=== PATIENT | male | born 1940 | race Caucasian/White ===

== ENCOUNTER 2022-10-01 14:02 | Outpatient (RCR) | payer OTHER, SELFPAY | END 2023-01-29 23:59 | disposition home or self-care (01) | PROVIDERS: PCP Family Medicine; Visit Provider Family Medicine | DX: M25.562 Pain in left knee (principal); Z51.89 Encounter for other specified aftercare | CPT/HCPCS: 97110; 97140; 97162 ==

== ENCOUNTER 2023-11-03 13:36 | Outpatient (RCR) | payer OTHER, SELFPAY | END 2024-03-02 23:59 | disposition home or self-care (01) | PROVIDERS: PCP Family Medicine; Visit Provider Nurse Practitioner | DX: M25.552 Pain in left hip (principal); M79.652 Pain in left thigh; Z96.641 Presence of right artificial hip joint; M62.89 Other specified disorders of muscle; R29.898 Other symptoms and signs involving the musculoskeletal system; Z51.89 Encounter for other specified aftercare | CPT/HCPCS: 97110; 97161 ==

== ENCOUNTER 2024-11-24 15:42 | Emergency (ER) | payer MEDICARE, SELFPAY ==
--- OUTSIDE RECORDS SUMMARY | 2024-10-22 10:15 | XMS_ITS | Encounter Summary ---
Author Organization [facility] Address [address] [place] [address] Care Team Providers Care Cocoa Mill Operator Name Role Phone Elsewhere, Pcp Primary Care Provider Unavailabl e Reason for Visit * Reason Onset Date Comments Pre-visit Intake 10/22/2024 * Appointment Request (Routine) - Authorized Specialty Diagnoses / Procedures Referred By Valdemar t Referred To Contact Hematology Referral ID Status Reason Start Date Expiration Date V isits Requested Visits Authorized [id number] Authorized 08/02/2024 11/02/2025 1 1 Encounter Details Date Type Department Care Team (Latest Contact Info) Description 10/22/2024 10:15 AM CDT Clinical Communication Virtual Review in [address] [phone] Pre-visit Intake Social History Tobacco Use Types Packs/Day Years Used Date Smoking Tobacco: Former Cigarettes 1 25 0 11/12/1957 - 1976 Smokeless Tobacco: Never Alcohol Use Standard Drinks/Week Comments Not Currently 0 (1 standard drink = 0.6 oz pure alcohol) Stopped consuming alchohol in 1980 [facility] Utilities Answer Date Recorded In the past 12 months has [facility] electric, gas, oil, or water company threatened to shut off services in your home? No 10/22/2024 Humiliation, Afraid, Rape, and Kick questionnair e Answer Date Recorded Within the last year, have y ou been afraid of your partner or ex-partner? No 10/17/2022 Within the last year, have y ou been humiliated or emotionally abused in other ways by your partner or ex-partner? No Within the last year, have y ou been kicked, hit, slapped, or otherwise physically hurt by your partner or ex-partner? No 10/17/2022 Within the last year, have y ou been raped or forced to have any kind of sexual activity by your partner or ex-partner? No 10/17/2022 Hunger Vital Sign Answer Date Recorded Within the past 12 months, y ou worried that your food would run out before you got the money to buy more. Never true 10/23/19 25 Within the past 12 months, t he food you bought just didn't last and you didn't have money to get more. Never true 10/22/2024 PRAPARE - Transportation Answer Date Re corded In the past 12 months, has l ack of transportation kept you from medical appointments or from getting medications? No 10/10 In the past 12 months, has l ack of transportation kept you from meetings, work, or from getting things needed for daily living? No 10/22/2024 Housing Stability Answer Date Recorded What is your living situation today? I have a [facility] place to live 10/22/2024 Education Answer Date Recorded What is the highest level of school you have completed or the highest degree you have received? Associate degree: occupational, technical, or vocational program 10/10/2020 Sex and Gender Information Value Date Recorded Sex Assigned at Male 06/01/2018 2:30 PM RIVER BOAT CAPTAIN Legal Sex Male 10:26 AM RIVER BOAT CAPTAIN Gender Identity Male 06/01/2018 2:30 PM RIVER BOAT CAPTAIN Sexual Orientation Straight 06/01/2018 2: 30 PM RIVER BOAT CAPTAIN documented as of this encounter Plan of Treatment Upcoming Encounters Date Type Department Care Team (Late st Contact Info) Description 11/30/2024 9:30 AM CDT Appointment Department of Laboratory Medicine in [address] [phone] Helena Vidal APRN, C.N.P., M.S.N. [address] [place] [phone] 12/07/2024 9:30 AM CDT Appointment Department of Laboratory Medicine in [address] [place] [phone] Helena Vidal APRN, C.NGeovany., M.S.N. [address] [place] [phone] 12/13/2024 8:00 AM CDT Appointment Department of Laboratory Medicine in [address] [phone] Helena Vidal APRN, C.N.Lydia., M.S.N. [address] [place] [phone] 12/14/2024 10:00 AM CDT Office Visit Division of Hematology in [address] [phone] Helena Vidal APRN, C.NGeovany., M.S.N. [address] [place] [phone] 12/15/2024 7:30 AM CDT Infusion Department of Oncology in [place], [place] [address] [place] [phone] Helena Vidal APRN, C.N.P., M.S.N. [address] [place] [phone] 12/21/2024 9:30 AM CDT Appointment Department of Laboratory Medicine in [address] [phone] Helena Vidal APRN, C.N.P., M.S.N. [address] [place] [phone] 12/28/2024 9:30 AM CDT Appointment Department of Laboratory Medicine in [address] [place] [address] Helena Vidal APRN, C.NMike, M.S.N. [address] [place] [phone] 12/31/2024 11:15 AM CDT Appointment Department of Radiology, [facility], in [address] [phone] Helena Vidal APRN, C.N.P., M.S.N. [address] [place] [phone] 01/03/2025 8:00 AM CDT Appointment Department of Laboratory Medicine in [address] [phone] Helena Vidal APRN, C.NMike, M.S.N. [address] [place] [phone] 01/04/2025 10:00 AM CDT Office Visit Division of Hematology in [address] [phone] Helena Vidal APRN, C.NMike, M.S.N. [address] [place] [phone] 01/05/2025 8:00 AM CDT Infusion Department of Oncology in [address] [phone] Helena Vidal APRN, C.NKwasiP., M.S.N. [address] [place] [phone] 01/11/2025 9:30 AM CDT Appointment Department of Laboratory Medicine in [place] [address] [phone] Helena Vidal APRN, C.NMike, M.S.N. [address] [place] [phone] 01/18/2025 9:30 AM CDT Appointment Department of Laboratory Medicine in [address] [phone] Helena Vidal APRN, C.N.P., M.S.N. [address] [place] [phone] 02/01/2025 9:30 AM CDT Appointment Department of Laboratory Medicine in [address] [phone] Helena Vidal APRN, C.N.P., M.S.N. [address] [place] [phone] 02/08/2025 9:30 AM CDT Appointment Department of Laboratory Medicine in [address] [phone] Helena Vidal APRN, C.NMike, M.S.N. [address] [place] [phone] 02/22/2025 9:30 AM CDT Appointment Department of Laboratory Medicine in [address] [phone] Helena Vidal APRN, C.NMike, M.S.N. [address] [place] [phone] 03/01/2025 9:30 AM CDT Appointment Department of Laboratory Medicine in [address] [phone] Helena Vidal APRN, C.N.P., M.S.N. [address] [place] [phone] 03/15/2025 9:30 AM RIVER BOAT CAPTAIN Appointment Department of Laboratory Medicine in [address] [phone] Helena Vidal APRN, C.N.P., M.S.N. [address] [place] [phone] 03/22/2025 9:30 AM RIVER BOAT CAPTAIN Appointment Department of Laboratory Medicine in [address] [phone] Helena Vidal APRN, C.NGeovany., M.S.N. [address] [place] [phone] documented as of this encounter Visit Diagnoses Not on filedocumented in this encounter Care Teams Cocoa Mill Operator Relationship Specialty Start Date End Date Elsewhere, Pcp PCP - General Internal Medicine 10/22/24 documented as of this encounter
--- OUTSIDE RECORDS SUMMARY | 2024-10-26 07:52 | XMS_ITS | Encounter Summary ---
Author Organization [facility] Address [address] [place] [address] Care Team Providers Care Ross Carrier Driver Name Role Phone Elsewhere, Pcp Primary Care Provider Unavailabl e Encounter Details Date Type Department Care Team (Latest Contact Info) Description 10/26/2024 7:52 AM CDT - 10/26/2024 9:44 AM CDT Hospital Encounter Department of Laboratory Medicine and Pathology, [facility] in [place], [place] [address] [place] [address] Kourtney Elizalde M.D. 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 I have a [facility] place to live 10/22/2024 Education Answer Date Recorded What is the highest level of school you have completed or the highest degree you have received? 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 04/19/2024 traMADoL (ULTRAM) 50 mg tabletIndication s:Acute Pain Exception Take 1 tablet (50 mg total) by mouth every 6 (six) hours as needed for pain Indications: Acute Pain Exception. 20 tablet 12/19/2022 11/15/2024 documented as of this encounter Plan of Treatment Upcoming Encounters Date Type Department Care Team (Late st Contact Info) Description 11/30/2024 9:30 AM CDT Appointment Department of Laboratory Medicine in [address] [phone] Helena Vidal APRN, C.N.P., M.S.N. [address] [place] [phone] 12/07/2024 9:30 AM CDT Appointment Department of Laboratory Medicine in [address] [phone] Helena Vidal APRN, C.N.P., M.S.N. [address] [place] [phone] 12/13/2024 8:00 AM CDT Appointment Department of Laboratory Medicine in [address] [phone] Helena Vidal APRN, C.N.P., M.S.N. [address] [place] [phone] 12/14/2024 10:00 AM CDT Office Visit Division of Hematology in [place], [place] [address] [place] [phone] Helena Vidal APRN, Jennifer.N.P., M.S.N. [address] [place] [phone] 12/15/2024 7:30 AM CDT Infusion Department of Oncology in [place], [place] [address] [place] [phone] Helena Vidal APRN, Jennifer.N.P., M.S.N. [address] [place] [phone] 12/21/2024 9:30 AM CDT Appointment Department of Laboratory Medicine in [address] [place] [address] Helena Vidal APRN, Jennifer.N.P., M.S.N. [address] [place] [phone] 12/28/2024 9:30 AM CDT Appointment Department of Laboratory Medicine in [address] [place] [address] Helena Vidal APRN, Jennifer.N.P., M.S.N. [address] [place] [phone] 12/31/2024 11:15 AM CDT Appointment Department of Radiology, [facility] in [place], [place] [address] [place] [address] Helena Vidal APRN, Jennifer.N.P., M.S.N. [address] [place] [phone] 01/03/2025 8:00 AM CDT Appointment Department of Laboratory Medicine in [address] [place] [address] Helena Vidal APRN, C.N.P., M.S.N. [address] [place] [phone] 01/04/2025 10:00 AM CDT Office Visit Division of Hematology in [place], [place] [address] [place] [address] Helena Vidal APRN, Jennifer.N.P., M.S.N. [address] [place] [phone] 01/05/2025 8:00 AM CDT Infusion Department of Oncology in [place], [place] [address] [place] [phone] Helena Vidal APRN, C.N.P., M.S.N. [address] [place] [phone] 01/11/2025 9:30 AM CDT Appointment Department of Laboratory Medicine in [address] [phone] Helena Vidal APRN, C.N.Lydia., M.S.N. [address] [place] [phone] 01/18/2025 9:30 AM CDT Appointment Department of Laboratory Medicine in [address] [phone] Helena Vidal APRN, Jennifer.N.P., M.S.N. [address] [place] [phone] 02/01/2025 9:30 AM CDT Appointment Department of Laboratory Medicine in [address] [phone] Helena Vidal APRN, C.N.P., M.S.N. [address] [place] [phone] 02/08/2025 9:30 AM CDT Appointment Department of Laboratory Medicine in [address] [phone] Helena Vidal APRN C.N.P., M.S.N. [address] [place] [phone] 02/22/2025 9:30 AM CDT Appointment Department of Laboratory Medicine in [address] [phone] Helena Vidal APRN, C.N.P., M.S.N. [address] [place] [phone] 03/01/2025 9:30 AM CDT Appointment Department of Laboratory Medicine in [address] [phone] Helena Vidal APRN, C.N.P., M.S.N. [address] [place] [phone] 03/15/2025 9:30 AM COOK HELPER FRUIT Appointment Department of Laboratory Medicine in [address] [phone] Helena Vidal APRN, C.NMike, M.S.N. [address] [place] [phone] 03/22/2025 9:30 AM COOK HELPER FRUIT Appointment Department of Laboratory Medicine in [address] [phone] Helena Vidal APRN, C.NMike, M.S.N. 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) LACTATE DEHYDROGENASE (LD), S Routine 10/26/2024 8:21 AM CDT 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 LAB BLOOD ADD-ON Final Resu lt [facility] [address] [place] [address], [facility] DTL [facility] 200 [place] [address] * (ABNORMAL) LD (Lactate Dehydrogenase) (10/26/2024 8:21 AM CDT) Lactate Dehydrogenase (LD), S 258(H) 122 - 222 U/L 10/26/2024 10:02 AM CDT DTL Blood (Blood, Venous) 10/26/2024 8:21 AM CDT 10/26/2024 9:06 AM CDT us Kourtney Elizalde M.D. LAB BLOOD NON ADD-ON Final Result [facility] 200 [place], [place] [id number] [place] [address] [facility] 200 [place] [address] * Creatinine with Estimated GFR (10/26/2024 8:21 AM CDT) Creatinine 1.07 0.74 - 1.35 mg/dL 10/26/2024 10:02 AM CDT DTL Estimated GFR (eGFR) 69 >=60 mL/min/BSA 10/26/2024 10:02 AM CDT DTL Comment: Estimated GFR calculated using the 2020 CKD_EPI creatinine equation. Blood (Blood, Venous) 10/26/2024 8:21 AM CDT 10/26/2024 9:06 AM CDT us Kourtney Elizalde M.D. LAB BLOOD ADD-ON Final Resu lt [facility] 200 [place] [address], [facility] 200 [place] [address] * (ABNORMAL) CBC with Differential, Blood (10/26/2024 8:21 AM CDT) Hemoglobin 14.1 13.2 - 16.6 g/dL 10/26/2024 9:44 AM CDT DTL Hematocrit 43.5 38.3 - 48.6 % 10/26/2024 9:44 AM CDT DTL Erythrocytes 4.99 4.35 - 5.65 x10(12)/L 10/26/2024 9:44 AM CDT DTL MCV 87.2 78.2 - 97.9 fL 10/26/2024 9:44 AM CDT DTL RBC Distrib Width 13.1 11.8 - 14.5 % 10/26/2024 9:44 AM CDT DTL Platelet Count 275 135 - 317 x10(9)/L 10/26/2024 9:44 AM CDT DTL Leukocytes 8.2 3.4 - 9.6 x10(9)/L 10/26/2024 9:44 AM CDT DTL Neutrophils 4.39 1.56 - 6.45 x10(9)/L 10/26/2024 9:44 AM CDT DHPM Lymphocytes 2.62 0.95 - 3.07 x10(9)/L 10/26/2024 9:44 AM CDT DTL Monocytes 1.05(H) 0.26 - 0.81 x10(9)/L 10/26/2024 9:44 AM CDT DTL Eosinophils 0.08 0.03 - 0.48 x10(9)/L 10/26/2024 9:44 AM CDT DTL Basophils 0.06 0.01 - 0.08 x10(9)/L 10/26/2024 9:44 AM CDT DTL Blood (Blood, Venous) 10/26/2024 8:21 AM CDT 10/26/2024 8:51 AM CDT us Kourtney Elizalde M.D. LAB BLOOD ADD-ON Final Resu lt [facility] [address] [place] [address], [place] DTL [facility] [address] [place] [address] [facility] [address] [place] [address] * Calcium, Total (10/26/2024 8:21 AM CDT) Calcium, Total, S 9.4 8.8 - 10.2 mg/dL 10/26/2024 10:02 AM CDT DTL Blood (Blood, Venous) 10/26/2024 8:21 AM CDT 10/26/2024 9:06 AM CDT us Kourtney Elizalde M.D. LAB BLOOD ADD-ON Final Resu lt Performing Organization Address City/[facility]/ZIP Co de Phone Number [facility] [address] [place] [address] * Bilirubin, Total (10/26/2024 8:21 AM CDT) Bilirubin, Total, S 0.7 0.0 - 1.2 mg/dL 10/26/2024 10:02 AM CDT DT Blood (Blood, Venous) 10/26/2024 8:21 AM CDT 10/26/2024 9:06 AM CDT us Kourtney Elizalde M.D. LAB BLOOD ADD-ON Final Resu lt Performing Organization Address [facility] Co de Phone Number [facility] 200 [place] [address], [facility] 200 [place] [address] * AST (Aspartate Aminotransferase) (10/26/2024 8:21 AM CDT) Aspartate Aminotransferase (AST), S 21 8 - 48 U/L 10/26/2024 10:02 AM CDT DT Blood (Blood, Venous) 10/26/2024 8:21 AM CDT 10/26/2024 9:06 AM CDT us Kourtney Elizalde M.D. LAB BLOOD ADD-ON Final Resu lt [facility] [address] [place] [address], [facility] 200 [place] [address] * Alkaline Phosphatase (10/26/2024 8:21 AM CDT) Alkaline Phosphatase, S 86 40 - 129 U/L 10/26/2024 10:02 AM CDT DTL Blood (Blood, Venous) 10/26/2024 8:21 AM CDT 10/26/2024 9:06 AM CDT us Kourtney Elizalde M.D. 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
--- OUTSIDE RECORDS SUMMARY | 2024-10-26 09:45 | XMS_ITS | Encounter Summary ---
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 [address] [place] [address] Phone: tel: fax: [facility] Referral ID Status Reason Start Date Expiration Date Visits Re quested Visits Authorized [id number] Closed 09/27/2024 09/27/2025 1 1 Reason for Visit * MRI/CAT/PET Scan (Routine) - Closed Specialty Diagnoses / Procedures Referred By Valdemar johnson Referred To Contact Radiology Diagnoses 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) Procedures CT Abdomen Pelvis with IV Contrast Kourtney lEizalde M.D. [address] [place] [address] Phone: tel: fax: [facility] Referral ID Status Reason Start Date Expiration Date Visits Re quested Visits Authorized [id number] Closed 09/27/2024 09/27/2025 1 1 Encounter Details Date Type Department Care Team (Latest Contact Info) Description 10/26/2024 9:45 AM CDT - 10/26/2024 11:59 PM CDT Hospital Encounter Department of Radiology, [facility], in [place], [place] [address] [place] [address] Kourtney Elizalde M.D. [address] [place] [address] 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) Discharge Disposition: Home or Self Care Social History Tobacco Use Types Packs/Day Years Used Date Smoking Tobacco: Former Cigarettes 1 25 0 11/12/1957 - 1976 Smokeless Tobacco: Never Alcohol Use Standard Drinks/Week Comments Not Currently 0 (1 standard drink = 0.6 oz pure alcohol) Stopped consuming alchohol in 1980 [facility] Utilities Answer Date Recorded In the past 12 months has [facility] [employer], oil, or water [employer] threatened to shut off services in your [...] your living situation today? I have a [facility] place to live 10/22/2024 Education Answer Date Recorded What is the highest level of school you have completed or the highest degree you have received? 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 [address] [place] [phone] 12/07/2024 9:30 AM CDT Appointment Department of Laboratory Medicine in [address] [phone] Helena Vidal APRN, C.N.Lydia., M.S.N. [address] [place] [phone] 12/13/2024 8:00 AM CDT Appointment Department of Laboratory Medicine in [address] [phone] Helena Vidal APRN, C.N.P., M.S.N. [address] [place] [phone] 12/14/2024 10:00 AM CDT Office Visit Division of Hematology in [address] [phone] Helena Vidal APRN, C.N.P., M.S.N. [address] [place] [phone] 12/15/2024 7:30 AM CDT Infusion Department of Oncology in [place], [place] [address] [place] [phone] Helena Vidal APRN, C.N.P., M.S.N. [address] [place] [phone] 12/21/2024 9:30 AM CDT Appointment Department of Laboratory Medicine in [address] [phone] Helena Vidal APRN, C.NMike, M.S.N. [address] [place] [phone] 12/28/2024 9:30 AM CDT Appointment Department of Laboratory Medicine in [address] [phone] Helena Vidal APRN, C.NMike, M.S.N. [address] [place] [phone] 12/31/2024 11:15 AM CDT Appointment Department of Radiology, [facility] in [address] [phone] Helena Vidal APRN, C.NMike, M.S.N. [address] [place] [phone] 01/03/2025 8:00 AM CDT Appointment Department of Laboratory Medicine in [address] [phone] Helena Vidal APRN, C.N.Lydia., M.S.N. [address] [place] [phone] 01/04/2025 10:00 AM CDT Office Visit Division of Hematology in [address] [phone] Helena Vidal APRN, C.N.PKwasi, M.S.N. [address] [place] [phone] 01/05/2025 8:00 AM CDT Infusion Department of Oncology in [place], [place] [address] [place] [phone] Helena Vidal APRN, C.NMike, M.S.N. [address] [place] [phone] 01/11/2025 9:30 AM CDT Appointment Department of Laboratory Medicine in [address] [phone] Helena Vidal APRN, C.NMike, M.S.N. [address] [place] [phone] 01/18/2025 9:30 AM CDT Appointment Department of Laboratory Medicine in [address] [phone] Helena Vidal APRN, C.N.P., M.S.N. [address] [place] [phone] 02/01/2025 9:30 AM CDT Appointment Department of Laboratory Medicine in [address] [phone] Helena Vidal APRN, C.NMike, M.S.N. [address] [place] [phone] 02/08/2025 9:30 AM CDT Appointment Department of Laboratory Medicine in [address] [phone] Helena Vidal APRN, C.N.PKwasi, M.S.N. [address] [place] [phone] 02/22/2025 9:30 AM CDT Appointment Department of Laboratory Medicine in [address] [phone] Helena Vidal APRN, C.N.P., M.S.N. [address] [place] [phone] 03/01/2025 9:30 AM CDT Appointment Department of Laboratory Medicine in [address] [phone] Helena Vidal APRN, C.N.P., M.S.N. [address] [place] [phone] 03/15/2025 9:30 AM CLOTH WINDER MACHINE OPERATOR Appointment Department of Laboratory Medicine in [address] [phone] Helena Vidal APRN, C.N.P., M.S.N. [address] [place] [phone] 03/22/2025 9:30 AM CLOTH WINDER MACHINE OPERATOR Appointment Department of Laboratory Medicine in [address] [phone] Helena Vidal APRN, C.N.P., M.S.N. 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 Interval increase in retroperitoneal and pelvic adenopathy. 2. Interval increase in soft tissue thickening in the distal aortocaval region extending along the common iliac vessels. 3. See separate chest CT report for complete discussion of a partially visualized right lower thoracic paraspinal mass. 4. Stable enhancing right renal mass. Narrative 10/26/2024 11:02 AM CDT EXAM: CT ABDOMEN PELVIS WITH IV CONTRAST COMPARISON: 10/24/2022 FINDINGS: Interval development of the partially visualized right lower thoracic paraspinal mass. Please see the separate chest CT report for further evaluation. Interval increase in hazy soft tissue thickening in the aortocaval region and tracking along the common iliac vessels bilaterally, left greater than right. Mild interval enlargement in several of the distal retroperitoneal and common iliac artery chains lymph node. For example a pericaval lymph node (series 1 image 69) now measures 1.5 x 1.1 cm as compared to 1.3 x 0.8 cm. A lymph node along the left common iliac chain (series 1 image 79) now measures 1.6 x 1.1 cm as compared to 1.0 x 0.7 cm. Significant interval enlargement of bilateral external iliac chain lymph nodes, more marked on the left. For example a lymph node along the distal left external iliac chain (series 1 image 105) now measures 3.1 x 2.0 cm previously measuring 2.0 x 1.0 cm. Spleen size remains within normal limits. Hepatic cysts. Portal hepatic shunt in the right lobe of the liver. No suspicious liver lesions. Stable 1.8 cm enhancing soft tissue nodule along the anterior aspect of the large right renal cyst (series 1 image 44). Additional simple bilateral renal cysts. Prostatectomy. Markedly distended urinary bladder. Left MILAGROS. Degenerative changes lumbar spine and right hip. This examination was performed in conjunction with a CT of the chest, which will be reported separately. Procedure Note Damaris Hoff M.D. - 10/26/2024 EXAM: CT ABDOMEN PELVIS WITH IV CONTRAST COMPARISON: 10/24/2022 FINDINGS: Interval development of the partially visualized right lowerthoracic paraspinal mass. Please see the separate chest CT report forfurther evaluation. Interval increase in hazy soft tissue thickening in the aortocaval regionand tracking along the common iliac vessels bilaterally, left greater thanright. Mild interval enlargement in several of the distal retroperitonealand common iliac artery chains lymph node. For example a pericaval lymph node (series 1 image 69) nowmeasures 1.5 x 1.1 cm as compared to 1.3 x 0.8 cm. A lymph node along theleft common iliac chain (series 1 image 79) now measures 1.6 x 1.1 cm ascompared to 1.0 x 0.7 cm. Significant interval enlargement of bilateral external iliac chain lymphnodes, more marked on the left. For example a lymph node along the distalleft external iliac chain (series 1 image 105) now measures 3.1 x 2.0 cmpreviously measuring 2.0 x 1.0 cm. Spleen size remains within normal limits. Hepatic cysts. Portal hepatic shunt in the right lobe of the liver. Nosuspicious liver lesions. Stable 1.8 cm enhancing soft tissue nodule along the anterior aspect ofthe large right renal cyst (series 1 image 44). Additional simplebilateral renal cysts. Prostatectomy. Markedly distended urinary bladder. Left MILAGROS. Degenerative changes lumbar spine and right hip. This examination was performed in conjunction with a CT of the chest,which will be reported separately. IMPRESSION: 1. Interval increase in retroperitoneal and pelvic adenopathy. 2. Interval increase in soft tissue thickening in the distal aortocavalregion extending along the common iliac vessels. 3. See separate chest CT report for complete discussion of a partiallyvisualized right lower thoracic paraspinal mass. 4. Stable enhancing right renal mass. us Kourtney Elizalde M.D. [place] CT PROCEDURES Final Res ult * CT Chest with IV Contrast (10/26/2024 10:44 AM CDT) Anatomical Region Laterality Modality Chest, Thoracic RST LOS, Tho racic ARZ LOS, Thoracic ARZ LOS, Thoracic FLA LOS N/A Computed Tomography, Compute d Tomography 10/26/2024 10:3 6 AM CDT Impressions 10/26/2024 12:15 PM CDT 1. Increased right paraspinal mass. Recommend further evaluation. 2. Mixed changes in mediastinal lymph nodes, as described. 3. Indeterminate new left upper lobe pulmonary micronodule. Narrative 10/26/2024 12:15 PM CDT EXAM: CT CHEST WITH IV CONTRAST COMPARISON: 10/24/2022 FINDINGS: This examination was performed in conjunction with a CT of the abdomen, which will be reported separately. Increased right paraspinal mass centered at the T10 vertebral level measuring 78 x 46 mm, previously 39 x 10 mm (4/197). This extends approximately from the inferior T8 vertebral level to the superior T12 vertebral level. New prominent 12 mm short axis low paraesophageal lymph node near the paraspinal mass (4/218). Previously visible prominent paratracheal and AP window lymph nodes have normalized since 10/24/2022. New sub-3 mm left upper lobe pulmonary nodule (144). Unchanged tiny right upper lobe nodule (3/123). Pulmonary calcified granulomas. No suspicious osseous lesion. No pleural effusion. Small thyroid nodules. Similar dilation of the ascending thoracic aorta to 47 mm. Moderate coronary calcification. Procedure Note Josias Paiz M.D. - 10/26/2024 EXAM: CT CHEST WITH IV CONTRAST COMPARISON: 10/24/2022 FINDINGS: This examination was performed in conjunction with a CT of the abdomen,which will be reported separately. Increased right paraspinal mass centered at the T10 vertebral levelmeasuring 78 x 46 mm, previously 39 x 10 mm (4/197). This extendsapproximately from the inferior T8 vertebral level to the superior [id number] level. New prominent 12 mm short axis low paraesophageal lymph node near the paraspinal mass (4/218). Previouslyvisible prominent paratracheal and AP window lymph nodes have normalizedsince 10/24/2022. New sub-3 mm left upper lobe pulmonary nodule (144). Unchanged tiny rightupper lobe nodule (3/123). Pulmonary calcified granulomas. No suspicious osseous lesion. No pleural effusion. Small thyroid nodules.Similar dilation of the ascending thoracic aorta to 47 mm. Moderatecoronary calcification. IMPRESSION: 1. Increased right paraspinal mass. Recommend further evaluation. 2. Mixed changes in mediastinal lymph nodes, as described. 3. Indeterminate new left upper lobe pulmonary micronodule. Kourtney Elizalde M.D. 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) documented in this encounter Administered Medications Inactive Administered Medications - up to 3 most recent administrations Medication Order MAR Action Action Date Dose Rate Site iohexoL 300 mg iodine/mL solution 1-200 mL (Omnipaque) 1-200 mL, intravenous, Once in imaging, contrast, Starting on 10/26/24 at 1026, For 1 dose, Imaging Protocol Orders, Dose per Radiant Medication Guidelines Given 10/26/2024 10:27 AM CDT 140 mL sodium chloride (PF) 0.9 % injection 1-100 mL 1-100 mL, intravenous, Once, On 10/26/24 at 1045, For 1 dose, Imaging Protocol Orders, Dose per Radiant Medication Guidelines Given 10/26/2024 10:27 AM CDT 50 mL documented in this encounter Care Teams Residential Mortgage Underwriter Relationship Specialty Start Date End Date Elsewhere, Pcp PCP - General Internal Medicine 10/22/24 documented as of this encounter
--- OUTSIDE RECORDS SUMMARY | 2024-10-26 14:30 | XMS_ITS | Encounter Summary ---
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 [address] [place] [address] Phone: tel: fax: [facility] Referral ID Status Reason Start Date Expiration Date Visits Re quested Visits Authorized [id number] Closed 10/26/2024 01/26/2026 1 1 Reason for Visit * Outpatient (Routine) - Closed Specialty Diagnoses / Procedures Referred By Valdemar johnson Referred To Contact Hematology Oncology Kourtney Elizalde M.D. [address] [place] [address] Phone: tel: fax: [facility] Referral ID Status Reason Start Date Expiration Date Visits Re quested Visits Authorized [id number] Closed 10/24/2022 10/23/2025 1 1 Encounter Details Date Type Department Care Team (Latest Contact Info) Description 10/26/2024 2:30 PM CDT Office Visit Division of Hematology in [place], [place] [address] [place] [phone] Kourtney Elizalde M.D. 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 I [place] [facility] to live 10/22/2024 Education Answer Date Recorded What is the highest level of school you have completed or the highest degree you have received? Associate degree: occupational, technical, or vocational program 10/10/2020 Sex and Gender Information Value Date Recorded Sex Assigned at Male 06/01/2018 2:30 PM TEST EQUIPMENT MECHANIC Legal Sex Male 10:26 AM TEST EQUIPMENT MECHANIC Gender Identity Male 06/01/2018 2:30 PM TEST EQUIPMENT MECHANIC Sexual Orientation Straight 06/01/2018 2: 30 PM TEST EQUIPMENT MECHANIC documented as of this encounter Last Filed Vital Signs Vital Sign Reading Time Taken Comments Blood Pressure 152/77 10/26/2024 2:19 PM CDT Pulse 79 10/26/2024 2:19 PM CDT Temperature 36.8 C (98.2 F) 10/26/2024 2:19 PM CDT Respiratory Rate - - Oxygen Saturation 96% 10/26/2024 2:19 PM CDT Inhaled Oxygen Concentration - - Weight 81.9 kg (180 lb 8.9 oz) 10/26/2024 2:19 P M CDT Height 170.1 cm (5' 6.97) 10/26/2024 2:19 PM CD T Body Mass Index 28.31 10/26/2024 2:19 PM CDT documented in this encounter Progress Notes * Kourtney Elizalde M.D. - 10/26/2024 2:30 PM CDT SUBJECTIVE Referring Provider Kourtney Elizalde M.D. 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 Interval History: History of Present Illness Mr. Amrit De La Paz is an 84 year old male with a history of follicular lymphoma who presents for a regularly scheduled follow-up visit He experiences right-sided flank pain for two to three weeks, sometimes radiating to the front. Thepain is intermittent, more noticeable when lying down, and not prominent during the day. He uses Tums and Lindane for relief but has not taken Tylenol or ibuprofen. No leg weakness or radicular pain is present. Lymphoma was diagnosed in 2016 and has been under observation without treatment. Recent imaging shows an increase in the size of a right paraspinal mass and enlarging abdominal lymph nodes. No new symptoms such as night sweats or changes in energy levels are present. He is not currently taking any blood thinners. The following portions of the patient's history were reviewed and updated as appropriate: allergies, current medications, family history, medical history, social history, surgical history, and problem list. REVIEW OF SYSTEMS Constitutional: Negative for fatigue, fever and night sweats. Skin: Negative for skin rash. Hematologic: Negative for abnormal lumps or bumps. All remaining systems are negative other than stated above and in the HPI PHYSICAL EXAM OBJECTIVE Vitals: 10/26/24 1419 BP: 152/77 Patient Position: Sitting Pulse: 79 Temp: 36.8 ??C Height: 170.1 cm Weight: 81.9 kg SpO2: 96% TempSrc: Tympanic Body surface area is 1.97 meters squared. General: ECOG performance score 0 Skin: No evidence of lymphoma cutis ENT: No evidence of Waldeyer's ring involvement Lymph: No evidence of peripheral adenopathy in the neck, axilla, femoral or inguinal areas Lungs: Clear to auscultation Cardiac: Regular rate and rhythm without significant murmur Abdomen: No tenderness, organomegaly or palpable masses Extremities: Without edema Neuro: Alert and oriented x3. No gross motor deficits DIAGNOSTICS I have reviewed the recent relevant labs and CT personally and with the patient. CT Chest with IV Contrast Result Date: 10/26/2024 Impression: 1. Increased right paraspinal mass. Recommend further evaluation. 2. Mixed changes in mediastinal lymph nodes, as described. 3. Indeterminate new left upper lobe pulmonary micronodule. CT Abdomen Pelvis with IV Contrast Result Date: 10/26/2024 Impression: 1. Interval increase in retroperitoneal and pelvic adenopathy. 2. Interval increase in soft tissue thickening in the distal aortocaval region extending along the common iliac vessels. 3. See separate chest CT report for complete discussion of a partially visualized right lower thoracic paraspinal mass. 4. Stable enhancing right renal mass. Recent Results (from the past 72 hours) Alkaline Phosphatase Collection Time: 10/26/24 8:21 AM Result Value Alkaline Phosphatase, S 86 AST (Aspartate Aminotransferase) Collection Time: 10/26/24 8:21 AM Result Value Aspartate Aminotransferase (AST), S 21 Bilirubin, Total Collection Time: 10/26/24 8:21 AM Result Value Bilirubin, Total, S 0.7 Calcium, Total Collection Time: 10/26/24 8:21 AM Result Value Calcium, Total, S 9.4 CBC with Differential, Blood Collection Time: 10/26/24 8:21 AM Result Value Hemoglobin 14.1 Hematocrit 43.5 Erythrocytes 4.99 MCV 87.2 RBC Distrib Width 13.1 Platelet Count 275 Leukocytes 8.2 Neutrophils 4.39 Lymphocytes 2.62 Monocytes 1.05 (H) Eosinophils 0.08 Basophils 0.06 Creatinine with Estimated GFR Collection Time: 10/26/24 8:21 AM Result Value Creatinine 1.07 Estimated GFR (eGFR) 69 LD (Lactate Dehydrogenase) Collection Time: 10/26/24 8:21 AM Result Value Lactate Dehydrogenase (LD), S 258 (H) Potassium Collection Time: 10/26/24 8:21 AM Result Value Potassium, S 4.3 ASSESSMENT / PLAN #1 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 The mass causes discomfort without neurological symptoms. Differentialincludes progression of low-grade lymphoma or transformation into aggressive B-cell lymphoma. PET CT scan is needed to assess extent and guide biopsy for accurate diagnosis and treatment planning. Biopsy is necessary to determine if transformation has occurred, as treatment for low-grade and aggressive lymphomas differ. Treatment aims to achieve remission, though recurrence is possible in severalyears. - Order PET CT scan to assess extent of disease and guide biopsy. - Arrange biopsy based on PET scan results to determine if transformation has occurred. - Consider referral to radiologist for biopsy guidance based on PET scan findings. Back pain Intermittent right flank pain, possibly related to paraspinal mass. Pain is mild, not affecting daily activities, and not associated with leg weakness or neurological symptoms. - Monitor pain symptoms and consider analgesics if pain worsens. Orders Placed This Encounter Procedures PET CT Skull to Thigh FDG The patient knows to contact us with any health-related questions or concerns. Follow-up: Return to clinic in 1-2 weeks Education We discussed the plan of care and management in great details. The patient expressed understanding of the content. All questions answered to the best of my ability. No apparent learning barriers wereidentified; learning preferences include listening. I personally spent 45 minutes in care of the patient today. Time includes both non face to face andface to face patient care. Signed by: Kourtney Elizalde M.D. 10/26/2024 2:56 PM CDT documented in this encounter Plan of Treatment Upcoming Encounters Date Type Department Care Team (Late st Contact Info) Description 11/30/2024 9:30 AM CDT Appointment Department of Laboratory Medicine in [address] [phone] Helena Vidal APRN, C.N.P., M.S.N. [address] [place] [phone] 12/07/2024 9:30 AM CDT Appointment Department of Laboratory Medicine in [address] [phone] Helena Vidal APRN, Jennifer.N.P., M.S.N. [address] [place] [phone] 12/13/2024 8:00 AM CDT Appointment Department of Laboratory Medicine in [address] [phone] Helena Vidal APRN, C.N.P., M.S.N. [address] [place] [phone] 12/14/2024 10:00 AM CDT Office Visit Division of Hematology in [place], [place] [address] [place] [phone] Helena Vidal APRN, C.N.PKwasi, M.S.N. [address] [place] [phone] 12/15/2024 7:30 AM CDT Infusion Department of Oncology in [place], [place] [address] [place] [phone] Helena Vidal APRN, C.N.Lydia., M.S.N. [address] [place] [phone] 12/21/2024 9:30 AM CDT Appointment Department of Laboratory Medicine in [address] [phone] Helena Vidal APRN, C.NKwasiP., M.S.N. [address] [place] [phone] 12/28/2024 9:30 AM CDT Appointment Department of Laboratory Medicine in [address] [phone] Helena Vidal APRN, C.NKwasiP., M.S.N. [address] [place] [phone] 12/31/2024 11:15 AM CDT Appointment Department of Radiology, [facility], in [place], [place] [address] [place] [phone] Helena Vidal APRN, C.N.PKwasi, M.S.N. [address] [place] [phone] 01/03/2025 8:00 AM CDT Appointment Department of Laboratory Medicine in [address] [phone] Helena Vidal APRN, C.N.P., M.S.N. [address] [place] [phone] 01/04/2025 10:00 AM CDT Office Visit Division of Hematology in [place], [place] [address] [place] [phone] Helena Vidal APRN, C.N.P., M.S.N. [address] [place] [phone] 01/05/2025 8:00 AM CDT Infusion Department of Oncology in [place], [place] [address] [place] [phone] Helena Vidal APRN, C.N.P., M.S.N. [address] [place] [phone] 01/11/2025 9:30 AM CDT Appointment Department of Laboratory Medicine in [address] [phone] Helena Vidal APRN, C.N.P., M.S.N. [address] [place] [phone] 01/18/2025 9:30 AM CDT Appointment Department of Laboratory Medicine in [address] [phone] Helena Vidal APRN, C.N.P., M.S.N. [address] [place] [phone] 02/01/2025 9:30 AM CDT Appointment Department of Laboratory Medicine in [address] [phone] Helena Vidal APRN, C.N.Mallory, M.S.N. [address] [place] [phone] 02/08/2025 9:30 AM CDT Appointment Department of Laboratory Medicine in [address] [phone] Helena Vidal APRN, C.N.Mallory, M.S.N. [address] [place] [phone] 02/22/2025 9:30 AM CDT Appointment Department of Laboratory Medicine in [address] [phone] Helena Vidal APRN, C.NMike, M.S.N. [address] [place] [phone] 03/01/2025 9:30 AM CDT Appointment Department of Laboratory Medicine in [address] [phone] Helena Vidal APRN, C.N.P., M.S.N. [address] [place] [phone] 03/15/2025 9:30 AM TEST EQUIPMENT MECHANIC Appointment Department of Laboratory Medicine in [address] [phone] Helena Vidal APRN, C.N.P., M.S.N. [address] [place] [phone] 03/22/2025 9:30 AM TEST EQUIPMENT MECHANIC Appointment Department of Laboratory Medicine in [address] [phone] Helena Vidal APRN, C.N.P., M.S.N. [address] [place] [address] documented as of this encounter Results * PET CT Skull to Thigh FDG (11/02/2024 4:10 PM CDT) Anatomical Region Laterality Modality Body, Nuclear Medicine PET R ST LOS, PET ARZ LOS, Nuclear Medicine PET FLA LOS, Nuclear Medicine N/A Positron Emission Tomography (PET), Positron Emission Tomography (PET) Impressions 11/03/2024 8:09 AM CDT 1. Intense heterogeneous FDG activity in the right paraspinal mass and adjacent vertebrae. Findings most suspicious for recurrent lymphoma. 2. Intensely avid adjacent paraesophageal lymph node, also likely related to lymphoma. Mild uptake in the right hilar and left axillary lymph nodes, indeterminate. 3. FDG activity associated with soft tissue thickening in the distal aortocaval region, above the aortic bifurcation with adjacent retroperitoneal lymphadenopathy including bilateral iliac chains. Findings are most suspicious for lymphoma involvement, although inflammatory process/periaortitis cannot be entirely excluded. Narrative 11/03/2024 8:09 AM CDT EXAM: PET CT SKULL TO THIGH FDG Serum glucose at time of F-18 FDG injection was 84 mg/dL. Patient followed standard dietary/fasting requirements for this exam. RADIOPHARMACEUTICAL/MEDS: Route: intravenous fludeoxyglucose F 18 injection [facility] (F-18 FDG),14.69 millicurie TECHNIQUE: F-18 FDG PET/CT scan was performed from the vertex through the upper thighs with low dose, non-contrast, free-breathing CT images for attenuation correction and anatomic localization (AC/AL), with imaging beginning at approximately 60 minutes after radiotracer injection. COMPARISON: FDG PET/CT 05/27/2016, 09/21/2015, CT chest abdomen pelvis 10/26/2024 and priors INDICATION: Follicular lymphoma diagnosed in 2016, treated with chemotherapy, most recently on observation. Enlarging paraspinal mass. Subsequent treatment strategy. Additional clinical history: Prostate cancer status post prostatectomy and pelvic jesus dissection. The patient reports no recent vaccinations. FINDINGS: Redemonstrated right paraspinal measuring approximately 6.4 x 7.2 cm on axial image 177 and 8.8 cm in the craniocaudal dimension mass centered at the T10 vertebra, extending inferiorly in the right retrocrural region, image 155. This mass demonstrates intense but heterogeneous FDG activity with areas of relative photopenia possibly representing consisting and/or necrotic changes. There are permeative changes in the adjacent vertebrae with FDG uptake extending into the vertebral bodies at T10 and T9 levels including the adjacent right neural foramina with abutment of the spinal canal at T10. FDG avid 1.5 x 1.3 cm lymph node with SUV max 13.4 (image 141). No other FDG avid lymph nodes in the mediastinum. Mildly increased asymmetric uptake in the right hilar region SUV max 3.4 image 124 may represent jesus uptake. Mild uptake in the subcentimeter left axillary lymph nodes, most prominent lymph node on image 113 demonstrates SUV max 3.1. New ill-defined soft tissue thickening in the aortocaval region, just above the aortic bifurcation, image 203, SUV max 4.1. Mildly prominent adjacent retroperitoneal subcentimeter lymph nodes with mild uptake, for example image 200 SUV max 2.0. Mild FDG activity the extends along the left greater than right common iliac arteries. Adjacent prominent FDG avid lymph nodes in the left greater than iliac chains, for example, left common iliac lymph nodes on image 207 SUV max 4.8 and on image 209 SUV max 5. Mildly FDG avid bilateral external iliac lymph nodes, including on image 219 SUV max 6.0, a distal left external iliac chain lymph node SUV max 8.6, image 236 and a right external iliac lymph node on image 275, SUV max 4.2. Normal splenic size and uptake. Normal bone marrow uptake. Soft tissue nodule along the anterior aspect of the right renal cysts demonstrate minimal uptake (SUV max approximately 1.7, below the blood pool. Scattered bowel uptake, likely physiologic. Incidental findings on low-dose CT: No significant findings in the head and neck. Otherwise, no significant interval change from the comparison exams. Procedure Note Tita Hodgson M.D. - 11/03/2024 EXAM: PET CT SKULL TO THIGH FDG Serum glucose at time of F-18 FDG injection was 84 mg/dL. Patient followedstandard dietary/fasting requirements for this exam. RADIOPHARMACEUTICAL/MEDS: Route: intravenous fludeoxyglucose F 18 injection [facility] (F-18 FDG),14.69 millicurie TECHNIQUE: F-18 FDG PET/CT scan was performed from the vertex through theupper thighs with low dose, non-contrast, free-breathing CT images forattenuation correction and anatomic localization (AC/AL), with imagingbeginning at approximately 60 minutes after radiotracer injection. COMPARISON: FDG PET/CT 05/27/2016, 09/21/2015, CT chest abdomen pelvis10/26/2024 and priors INDICATION: Follicular lymphoma diagnosed in 2015, treated withchemotherapy, most recently on observation. Enlarging paraspinal mass.Subsequent treatment strategy. Additional clinical history: Prostate cancer status post prostatectomy andpelvic jesus dissection. The patient reports no recent vaccinations. FINDINGS: Redemonstrated right paraspinal measuring approximately 6.4 x7.2 cm on axial image 177 and 8.8 cm in the craniocaudal dimension masscentered at the T10 vertebra, extending inferiorly in the rightretrocrural region, image 155. This mass demonstrates intense but heterogeneous FDG activity with areas of relativephotopenia possibly representing consisting and/or necrotic changes. Thereare permeative changes in the adjacent vertebrae with FDG uptake extendinginto the vertebral bodies at T10 and T9 levels including the adjacent right neural foramina withabutment of the spinal canal at T10. FDG avid 1.5 x 1.3 cm lymph node with SUV max 13.4 (image 141). No otherFDG avid lymph nodes in the mediastinum. Mildly increased asymmetricuptake in the right hilar region SUV max 3.4 image 124 may represent nodaluptake. Mild uptake in the subcentimeter left axillary lymph nodes, most prominentlymph node on image 113 demonstrates SUV max 3.1. New ill-defined soft tissue thickening in the aortocaval region, justabove the aortic bifurcation, image 203, SUV max 4.1. Mildly prominentadjacent retroperitoneal subcentimeter lymph nodes with mild uptake, forexample image 200 SUV max 2.0. Mild FDG activity the extends along the left greater than right common iliacarteries. Adjacent prominent FDG avid lymph nodes in the left greater thaniliac chains, for example, left common iliac lymph nodes on image 207 SUVmax 4.8 and on image 209 SUV max 5. Mildly FDG avid bilateral external iliac lymph nodes, including on SUV max 6.0, a distal left external iliac chain lymph node SUV max8.6, image 236 and a right external iliac lymph node on image 275, SUV max4.2. Normal splenic size and uptake. Normal bone marrow uptake. Soft tissue nodule along the anterior aspect of the right renal cystsdemonstrate minimal uptake (SUV max approximately 1.7, below the bloodpool. Scattered bowel uptake, likely physiologic. Incidental findings on low-dose CT: No significant findings in the headand neck. Otherwise, no significant interval change from the comparisonexams. IMPRESSION: 1. Intense heterogeneous FDG activity in the right paraspinal mass andadjacent vertebrae. Findings most suspicious for recurrent lymphoma. 2. Intensely avid adjacent paraesophageal lymph node, also likely relatedto lymphoma. Mild uptake in the right hilar and left axillary lymph nodes,indeterminate. 3. FDG activity associated with soft tissue thickening in the distalaortocaval region, above the aortic bifurcation with adjacentretroperitoneal lymphadenopathy including bilateral iliac chains. Findingsare most suspicious for lymphoma involvement, although inflammatory process/periaortitis cannot be entirely excluded. 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
--- OUTSIDE RECORDS SUMMARY | 2024-11-02 14:09 | XMS_ITS | Encounter Summary ---
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 [address] [place] [address] Phone: tel: fax: [facility] Referral ID Status Reason Start Date Expiration Date Visits Re quested Visits Authorized [id number] Closed 10/26/2024 01/26/2026 1 1 Encounter Details Date Type Department Care Team (Latest Contact Info) Description 11/02/2024 2:09 PM CDT - 11/02/2024 11:59 PM CDT Hospital Encounter Department of Radiology, [facility], in [place], [place] [address] [place] [address] Kourtney Elizalde M.D. 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 [facility] 10/22/2024 Education Answer Date Recorded What is the highest level of school you have completed or the highest degree you have received? Associate degree: occupational, technical, or vocational program 10/10/2020 Sex and Gender Information Value Date Recorded Sex Assigned at Male 06/01/2018 2:30 PM BOND UNDERWRITER Legal Sex Male 10:26 AM BOND UNDERWRITER Gender Identity Male 06/01/2018 2:30 PM BOND UNDERWRITER Sexual Orientation Straight 06/01/2018 2: 30 PM BOND UNDERWRITER documented as of this encounter Medications at [...] CDT Appointment Department of Laboratory Medicine in [address] [phone] Helena Vidal APRN, C.N.P., M.S.N. [address] [place] [address] 12/07/2024 9:30 AM CDT Appointment Department of Laboratory Medicine in [address] [phone] Helena Vidal APRN, C.N.P., M.S.N. [address] [place] [phone] 12/13/2024 8:00 AM CDT Appointment Department of Laboratory Medicine in [address] [phone] Helena Vidal APRN, C.NMike, M.S.N. [address] [place] [phone] 12/14/2024 10:00 AM CDT Office Visit Division of Hematology in [place], [place] [address] [place] [phone] Helena Vidal APRN, C.NMike, M.S.N. [address] [place] [phone] 12/15/2024 7:30 AM CDT Infusion Department of Oncology in [place], [place] [address] [place] [phone] Helena Vidal APRN, C.NGeovany., M.S.N. [address] [place] [phone] 12/21/2024 9:30 AM CDT Appointment Department of Laboratory Medicine in [address] [phone] Helena Vidal APRN, C.N.PKwasi, M.S.N. [address] [place] [phone] 12/28/2024 9:30 AM CDT Appointment Department of Laboratory Medicine in [address] [phone] Helena Vidal APRN, C.N.P., M.S.N. [address] [place] [phone] 12/31/2024 11:15 AM CDT Appointment Department of Radiology, [facility], in [place], [place] [address] [place] [phone] Helena Vidal APRN, C.NMike, M.S.N. [address] [place] [phone] 01/03/2025 8:00 AM CDT Appointment Department of Laboratory Medicine in [address] [phone] Helena Vidal APRN, C.N.P., M.S.N. [address] [place] [phone] 01/04/2025 10:00 AM CDT Office Visit Division of Hematology in [place], [place] [address] [place] [phone] Helena Vidal APRN, C.NGeovany., M.S.N. [address] [place] [phone] 01/05/2025 8:00 AM CDT Infusion Department of Oncology in [place], [place] [address] [place] [phone] Helena Vidal APRN, C.NMike, M.S.N. [address] [place] [phone] 01/11/2025 9:30 AM CDT Appointment Department of Laboratory Medicine in [address] [phone] Helena Vidal APRN, C.N.Mallory, M.S.N. [address] [place] [phone] 01/18/2025 9:30 AM CDT Appointment Department of Laboratory Medicine in [address] [phone] Helena Vidal APRN, C.N.P., M.S.N. [address] [place] [phone] 02/01/2025 9:30 AM CDT Appointment Department of Laboratory Medicine in [address] [phone] Helena Vidal APRN, C.N.P., M.S.N. [address] [place] [phone] 02/08/2025 9:30 AM CDT Appointment Department of Laboratory Medicine in [address] [phone] Helena Vidal APRN, C.N.P., M.S.N. [address] [place] [phone] 02/22/2025 9:30 AM CDT Appointment Department of Laboratory Medicine in [address] [phone] Helena Vidal APRN, C.N.P., M.S.N. [address] [place] [phone] 03/01/2025 9:30 AM CDT Appointment Department of Laboratory Medicine in [address] [phone] Helena Vidal APRN, C.NMike, M.S.N. [address] [place] [phone] 03/15/2025 9:30 AM BOND UNDERWRITER Appointment Department of Laboratory Medicine in [address] [phone] Helena Vidal APRN, C.N.P., M.S.N. [address] [place] [phone] 03/22/2025 9:30 AM BOND UNDERWRITER Appointment Department of Laboratory Medicine in [address] [phone] Helena Vidal APRN, C.NMike, M.S.N. 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 COMPARISON: FDG PET/CT 05/27/2016, 09/21/2015, CT chest abdomen pelvis 10/26/2024 and priors INDICATION: Follicular lymphoma diagnosed in 2015, treated with chemotherapy, most recently on observation. [...] RADIOPHARMACEUTICAL/MEDS: Route: intravenous fludeoxyglucose F 18 injection FDC (F-18 FDG),14.69 millicurie TECHNIQUE: F-18 FDG PET/CT scan was performed from the vertex through theupper thighs with low dose, non-contrast, free-breathing CT images forattenuation correction and anatomic localization (AC/AL), with imagingbeginning at approximately 60 minutes after radiotracer injection. COMPARISON: FDG PET/CT 05/27/2016, 09/21/2015, CT chest abdomen pelvis10/26/2024 and priors INDICATION: Follicular lymphoma diagnosed in 2016, treated withchemotherapy, most recently on observation. Enlarging [...] inflammatory process/periaortitis cannot be entirely excluded. Kourtney Elizalde M.D. 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
--- OUTSIDE RECORDS SUMMARY | 2024-11-03 11:30 | XMS_ITS | Encounter Summary ---
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 [address] [place] [address] Phone: tel: fax: [facility] Referral ID Status Reason Start Date Expiration Date Visits Re quested Visits Authorized [id number] Closed 11/08/2024 11/08/2024 1 1 * Outpatient (Routine) - Closed Specialty Diagnoses / Procedures Referred By Contac t Referred To Contact Hematology Oncology Jose Romero M.B.B.S. [address] [place] [address] Phone: tel: fax: [facility] Referral ID Status Reason Start Date Expiration Date Visits Re quested Visits Authorized [id number] Closed 11/03/2024 05/05/2026 1 1 Reason for Visit * Appointment Request (Routine) - Closed Specialty Diagnoses / Procedures Referred By Contac t Referred To Contact Hematology Referral ID Status Reason Start Date Expiration Date Visits Re quested Visits Authorized [id number] Closed 10/26/2024 01/26/2026 1 1 Encounter Details Date Type Department Care Team (Late st Contact Info) Description 11/03/2024 11:30 AM CDT Office Visit Division of Hematology in [place], [place] [address] [place] [address] Jose Romero M.B.B.S. 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 [facility] live 10/22/2024 Education Answer Date Recorded What is the highest level of school you have completed or the highest degree you have received? Associate degree: occupational, technical, or vocational program 10/10/2020 Sex and Gender Information Value Date Recorded Sex Assigned at Male 06/01/2018 2:30 PM BEHAVIORAL HEALTH TECH Legal Sex Male 10:26 AM BEHAVIORAL HEALTH TECH Gender Identity Male 06/01/2018 2:30 PM BEHAVIORAL HEALTH TECH Sexual Orientation Straight 06/01/2018 2: 30 PM BEHAVIORAL HEALTH TECH documented as of this encounter Last Filed Vital Signs Vital Sign Reading Time Taken Comments Blood Pressure 173/84 11/03/2024 11:17 AM CDT Pulse 70 11/03/2024 11:17 AM CDT Temperature 36.1 C (96.9 F) 11/03/2024 11:17 AM CDT Respiratory Rate - - Oxygen Saturation 96% 11/03/2024 11:17 AM CDT Inhaled Oxygen Concentration - - Weight 78.5 kg (173 lb 1 oz) 11/03/2024 11:17 AM CDT Height 168.8 cm (5' 6.46) 11/03/2024 11:17 AM C DT Body Mass Index 27.55 11/03/2024 11:17 AM CDT documented in this encounter Progress Notes * Jose Romero M.B.BKwasiS. - 11/03/2024 11:30 AM CDT HEMATOLOGY LYMPHOMA CLINIC FOLLOW UP NOTE Primary talent acquisition partner: Kourtney Campos Chief complaint/Reason of the visit: Follow up appointment with recent imaging finding showing signs of progression to review the PET scan. Background: Mr. 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 De La Paz today in the clinic accompanied by his . He has been experiencing right-sided flank pain for several weeks, occasionally radiating anteriorly. A recent CT of the chest, abdomen, and pelvis (compared to prior imaging from 2022) showed significant progression of known lymphadenopathy specifically the right paraspinal mass has increased in size to 7.8 x 4.6 cm (previously 3.9 ?? 1 cm), along with enlargement of intra-abdominal lymph nodes. The flank pain reaches a severity of 3/10 at its worst. He does not require frequent analgesics andtakes only one tablet of Tylenol at night as needed, which provides adequate relief. He denies constitutional symptoms, lower limb weakness, sensory deficits, or bowel/bladder incontinence. OBJECTIVE Vitals: 11/03/24 1117 BP: (!) 173/84 Pulse: 70 Temp: 36.1 ??C SpO2: 96% Constitutional Appearance: He is not ill-appearing. HENT Mouth/Throat: Mouth: Mucous membranes are moist. Cardiovascular Rate and Rhythm: Normal rate. Pulmonary Effort: No respiratory distress. Breath sounds: Normal breath sounds. No wheezing or rhonchi. Abdominal General: There is no distension. Palpations: Abdomen is soft. There is no mass. Tenderness: There is no abdominal tenderness. Skin General: Skin is warm. Capillary Refill: Capillary refill takes less than 2 seconds. Neurological General: No focal deficit present. Mental Status: He is oriented to person, place, and time. DIAGNOSTICS - We have reviewed the recent relevant labs and diagnostics studies. - His latest chemistry check showing elevation in LDH of 258. WBC 8.2 (ALC 2.62, AMC 1.05), hemoglobin 14.1, platelets 275 ASSESSMENT / PLAN Stage IV low-grade follicular lymphoma: He recently presented with worsening right flank pain, corresponding with significant progression of the right paraspinal mass, which has nearly doubled in size compared to prior imaging. Also, elevated LDH level and increased FDG avidity on PET scan raise concern for possible histologic transformation. Review of the PET scan reveals marked FDG uptake in the right paraspinal mass, as well as involvement of paraesophageal and intra-abdominal lymph nodes. Our aim is to rule out transformation to diffuse large B-cell lymphoma, given the substantial differences in treatment strategies between indolent and transformed disease. For a CT-guided biopsy, to target the most FDG-avid region of the right paraspinal mass. The patient currently has no signs or symptoms of spinal cord compression or neurologic deficits. However, he has been counseled to promptly report any such symptoms should they arise, as they would represent a medical emergency. Follow up: Return to clinic after the biopsy results to discuss the treatment Education We discussed the diagnosis and management plan in detail. The patient expressed understanding of the content. No apparent learning barriers were identified; learning preferences include listening. We spent a total of 30 minutes face to face with the patient in reviewing the record, counseling and discussion and/or coordination of care as described above. Discussed with SHRUTI Malone Signed by: Torres ArreolaSKwasi 11/03/2024 Cosigned by Shruti Zhu M.D. at 11/03/2024 3:59 PM CDT documented in this encounter Miscellaneous Notes * Addendum Note - Jose Romero M.B.BKwasiS. - 11/03/2024 11:30 AM CDT Addended by: JOSE ROMERO on: 11/04/2024 11:21 AM Modules accepted: Orders documented in this encounter Plan of Treatment Upcoming Encounters Date Type Department Care Team (Late st Contact Info) Description 11/30/2024 9:30 AM CDT Appointment Department of Laboratory Medicine in [address] [phone] Helena Vidal APRN, C.N.P., M.S.N. [address] [place] [phone] 12/07/2024 9:30 AM CDT Appointment Department of Laboratory Medicine in [address] [phone] Helena Vidal APRN, C.N.P., M.S.N. [address] [place] [phone] 12/13/2024 8:00 AM CDT Appointment Department of Laboratory Medicine in [address] [phone] Helena Vidal APRN, C.N.Lydia., M.S.N. [address] [place] [phone] 12/14/2024 10:00 AM CDT Office Visit Division of Hematology in [place], [place] [address] [place] [phone] Helena Vidal APRN, C.N.P., M.S.N. [address] [place] [phone] 12/15/2024 7:30 AM CDT Infusion Department of Oncology in [place], [place] [address] [place] [phone] Helena Vidal APRN, Jennifer.N.P., M.S.N. [address] [place] [phone] 12/21/2024 9:30 AM CDT Appointment Department of Laboratory Medicine in [address] [phone] Helena Vidal APRN, C.NGeovany., M.S.N. [address] [place] [phone] 12/28/2024 9:30 AM CDT Appointment Department of Laboratory Medicine in [address] [phone] Helena Vidal APRN, C.N.Lydia., M.S.N. [address] [place] [phone] 12/31/2024 11:15 AM CDT Appointment Department of Radiology, [facility] in [address] [phone] Helena Vidal APRN, C.NGeovany., M.S.N. [address] [place] [phone] 01/03/2025 8:00 AM CDT Appointment Department of Laboratory Medicine in [address] [phone] Helena Vidal APRN, C.NMike, M.S.N. [address] [place] [phone] 01/04/2025 10:00 AM CDT Office Visit Division of Hematology in [address] [phone] Helena Vidal APRN, C.N.P., M.S.N. [address] [place] [phone] 01/05/2025 8:00 AM CDT Infusion Department of Oncology in [place], [place] [address] [place] [phone] Helena Vidal APRN, C.NMike, M.S.N. [address] [place] [phone] 01/11/2025 9:30 AM CDT Appointment Department of Laboratory Medicine in [address] [phone] Helena Vidal APRN, C.NMike, M.S.N. [address] [place] [phone] 01/18/2025 9:30 AM CDT Appointment Department of Laboratory Medicine in [address] [phone] Helena Vidal APRN, C.NMike, M.S.N. [address] [place] [phone] 02/01/2025 9:30 AM CDT Appointment Department of Laboratory Medicine in [address] [phone] Helena Vidal APRN, C.NGeovany., M.S.N. [address] [place] [phone] 02/08/2025 9:30 AM CDT Appointment Department of Laboratory Medicine in [address] [phone] Helena Vidal APRN, C.N.P., M.S.N. [address] [place] [phone] 02/22/2025 9:30 AM CDT Appointment Department of Laboratory Medicine in [address] [phone] Helena Vidal APRN, C.NGeovany., M.S.N. [address] [place] [phone] 03/01/2025 9:30 AM CDT Appointment Department of Laboratory Medicine in [address] [phone] Helena Vidal APRN, C.NGeovany., M.S.N. [address] [place] [phone] 03/15/2025 9:30 AM BEHAVIORAL HEALTH TECH Appointment Department of Laboratory Medicine in [address] [phone] Helena Vidal APRN, C.NGeovany., M.S.N. [address] [place] [phone] 03/22/2025 9:30 AM BEHAVIORAL HEALTH TECH Appointment Department of Laboratory Medicine in [address] [phone] Helena Vidal APRN, C.N.P., M.S.N. [address] [place] [phone] Scheduled Referrals Name Type Priority Associated Diagnoses Order Schedule Hematology office visit (clinic) [facility]; Lymphoma; General Outpatient Referral Routine Expected: 11/03/2024, Expires: 02/03/2026 documented as of this encounter Results * CT Neuro Spine Biopsy (11/08/2024 12:50 PM CDT) Anatomical Region Laterality Modality Neuroradiology ARZ LOS, Neur oradiology FLA LOS, Procedural, Neuroradiology RST LOS, Procedural NWWI LOS N/A Computed Tomography, Compute d Tomography Impressions 11/08/2024 1:[address]-guided biopsy of the right paraspinal thoracic mass. NR Narrative 11/08/2024 1:25 PM CDT EXAM: CT NEURO SPINE BIOPSY PRE-PROCEDURE: Patient seen, evaluated, history reviewed, and approved for sedation. Airway, heart, and lung exam satisfactory for sedation. Discussed risks, benefits, alternatives for procedure, and/or sedation. The roles and responsibilities of care team members, residents, and fellows were discussed. Patient understands information and questions answered. Informed consent obtained from the patient. Immediately prior to starting the procedure, in the presence of the assisting personnel, a procedural pause was conducted to verify correct patient identity and verification of procedure to be performed, and as applicable, correct side and site, correct patient position, availability of implants, special equipment, or special requirements, and all image and specimen identification data. INTRAPROCEDURE: Moderate sedation was administered by sedation nurse under my supervision. The patient was continuously monitored with real time oxygen saturation, heart rate, ECG rhythm strip and blood pressure throughout administration of the sedation and performance of the procedure. The total intra-procedural sedation time was: 23 minutes. TECHNIQUE: Risks, benefits, and alternatives to a CT-guided soft tissue biopsy were discussed with the patient, who elected to proceed. The patient was placed in the supine position on the CT table. The patient's thoracic region was prepped and draped in normal sterile fashion. 1% lidocaine and bupivacaine were used for local anesthetic. Under intermittent CT guidance, a 14/15 gauge introducer needle and Temno biopsy device were utilized to target and take multiple samples of the right thoracic region FDG avid paraspinal process. A total of 7 samples were obtained and samples were sent for both pathology. The needle was then removed and hemostasis was obtained with manual compression. There was no immediate complication. Postprocedural images were obtained of the thoracic region and no pneumothorax or significant bleeding were detected. COMPLICATION: None. BLOOD LOSS: None. PATIENT INSTRUCTIONS: Patient may be dismissed from the radiology department when dismissal criteria met. POST-PROCEDURE DIAGNOSIS: Indeterminate FDG avid right paraspinal thoracic mass. Procedure Note Audi Elias M.D. - 11/08/2024 EXAM: CT NEURO SPINE BIOPSY PRE-PROCEDURE: Patient seen, evaluated, history reviewed, and approved forsedation. Airway, heart, and lung exam satisfactory for sedation.Discussed risks, benefits, alternatives for procedure, and/or sedation.The roles and responsibilities of care team members, residents, and fellows were discussed. Patient understandsinformation and questions answered. Informed consent obtained from thepatient. Immediately prior to starting the procedure, in the presence ofthe assisting personnel, a procedural pause was conducted to verify correct patient identity and verificationof procedure to be performed, and as applicable, correct side and site,correct patient position, availability of implants, special equipment, orspecial requirements, and all image and specimen identification data. INTRAPROCEDURE: Moderate sedation was administered by sedation nurse undermy supervision. The patient was continuously monitored with real timeoxygen saturation, heart rate, ECG rhythm strip and blood pressurethroughout administration of the sedation and performance of the procedure. The total intra-procedural sedation timewas: 23 minutes. TECHNIQUE: Risks, benefits, and alternatives to a CT-guided soft tissuebiopsy were discussed with the patient, who elected to proceed. Thepatient was placed in the supine position on the CT table. The patient'sthoracic region was prepped and draped in normal sterile fashion. 1% lidocaine and bupivacaine were used for localanesthetic. Under intermittent CT guidance, a 14/15 gauge introducerneedle and Temno biopsy device were utilized to target and take multiplesamples of the right thoracic region FDG avid paraspinal process. A total of 7 samples were obtained andsamples were sent for both pathology. The needle was then removed andhemostasis was obtained with manual compression. There was no immediatecomplication. Postprocedural images were obtained of the thoracic region and no pneumothorax or significantbleeding were detected. COMPLICATION: None. BLOOD LOSS: None. PATIENT INSTRUCTIONS: Patient may be dismissed from the radiologydepartment when dismissal criteria met. POST-PROCEDURE DIAGNOSIS: Indeterminate FDG avid right paraspinal thoracicmass. IMPRESSION: CT-guided biopsy of the right paraspinal thoracic mass. 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
--- OUTSIDE RECORDS SUMMARY | 2024-11-08 09:30 | XMS_ITS | Encounter Summary ---
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 [address] [place] [phone] Phone: tel: fax: [facility] Referral ID Status Reason Start Date Expiration Date Visits Re quested Visits Authorized [id number] Closed 11/08/2024 11/08/2024 1 1 Encounter Details Date Type Department Care Team (Latest Contact Info) Description 11/08/2024 9:30 AM CDT - 11/08/2024 2:09 PM CDT Hospital Encounter Department of Radiology, [facility], in [place], [place] [address] [place] [address] Jose Fang M.B.B.S. [address] [place] [phone] Audi Elias M.D. 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 I have a [facility] place to live 10/22/2024 Education Answer Date Recorded What is the highest level of school you have completed or the highest degree you have received? Associate degree: occupational, technical, or vocational program 10/10/2020 Sex and Gender Information Value Date Recorded Sex Assigned at Male 06/01/2018 2:30 PM MANAGER OF PHOTOGRAPHY Legal Sex Male 10:26 AM MANAGER OF PHOTOGRAPHY Gender Identity Male 06/01/2018 2:30 PM MANAGER OF PHOTOGRAPHY Sexual Orientation Straight 06/01/2018 2: 30 PM MANAGER OF PHOTOGRAPHY documented as of this encounter Last Filed Vital Signs Vital Sign Reading Time Taken Comments Blood Pressure 171/87 11/08/2024 1:50 PM CDT Pulse 61 11/08/2024 1:30 PM CDT Temperature 36.7 C (98.1 F) 11/08/2024 1:25 PM CDT Respiratory Rate 24 11/08/2024 1:50 PM CDT Oxygen Saturation 97% 11/08/2024 1:30 PM CDT Inhaled Oxygen Concentration - - Weight 78.5 kg (173 lb 1 oz) 11/08/2024 10:16 AM CDT Height - - Body Mass Index 27.55 11/03/2024 11:17 AM CDT documented in this encounter Discharge Instructions * Discharge Instructions* Heike Rojas R.N. - 11/08/2024 1:14 PM CDT Instructions After Sedation or Anesthesia After you have sedation or anesthesia, it is common to have lapses of memory, slowed reaction time and impaired judgment. Do not drive or operate motorized vehicles or equipment for the rest of the day. This is for your safety and the safety of others. Air travel by yourself on the day of your procedure is not advised. For the rest of the day: Rest. Do not return to work or school. Do not take on responsibility for children or anyone who depends on your care. Do not use exercise equipment or take part in rough play or sports. Do not drink alcoholic beverages. Sedation or anesthesia medication also may increase your risk of falling. Use caution and ask for help when you walk or move around. You may want to have someone help you for the rest of the day. You may resume your usual diet when you feel able to do so, unless you are told otherwise. Contact your health care provider if you have: The following side effects longer than 24 hours: Ongoing dizziness. Persistent nausea or repeated vomiting. Signs of infection, which may include: Temperature of 100.4 degrees Fahrenheit (38 degrees Celsius) or higher. Chills. An Increase in swelling, tenderness, or redness at the site. Increased pain or pain not helped by pain medication. A bad-smelling odor from the site New drainage or an increase in drainage coming from the site A change in skin color at the site. This change may be a shade of red, purple or brown, depending on your skin color. * Attachments The following attachments cannot be sent through Care Everywhere. * Care Following a Needle Biopsy documented in this encounter Medications at Time of Discharge [...] 12/19/2022 11/15/2024 documented as of this encounter Procedure Notes * Shaniqua Wasserman APRN, C.N.P., M.S.N. - 11/08/2024 1:08 PM CDT PATIENT DISPOSITION Return to Outpatient Unit for recovery. Discharge patient when discharge criteria met. POST-PROCEDURE DIAGNOSIS Right lower thoracic paraspinal mass PROCEDURE PERFORMED AND DESCRIPTION CT guided Right lower thoracic paraspinal mass biopsy PROCEDURE DETAILS See Radiology Report SPECIMENS REMOVED See Pathology Report FINDINGS See procedure note PRIMARY PROCEDURALIST Dr. Elias ASSISTANTS NA COMPLICATIONS None. DRAINS None. IMPLANTS None. ANESTHESIA Moderate Sedation. and Local Anesthesia. FLUIDS See MAR ESTIMATED BLOOD LOSS <5ml CURRENT MEDICATIONS No Medication Changes FOLLOW-UP LETTER None. MAY RETURN TO WORK Not applicable PATIENT INSTRUCTIONS No return appointment documented in this encounter Plan of Treatment Upcoming Encounters Date Type Department Care Team (Late st Contact Info) Description 11/30/2024 9:30 AM CDT Appointment Department of Laboratory Medicine in [address] [phone] Helena Vidal APRN, C.NGeovany., M.S.N. [address] [place] [phone] 12/07/2024 9:30 AM CDT Appointment Department of Laboratory Medicine in [address] [phone] Helena Vidal APRN, C.NGeovany., M.S.N. [address] [place] [phone] 12/13/2024 8:00 AM CDT Appointment Department of Laboratory Medicine in [address] [phone] Helena Vidal APRN, C.N.P., M.S.N. [address] [place] [phone] 12/14/2024 10:00 AM CDT Office Visit Division of Hematology in [place], [place] [address] [place] [phone] Helena Vidal APRN, C.NGeovany., M.S.N. [address] [place] [phone] 12/15/2024 7:30 AM CDT Infusion Department of Oncology in [place], [place] [address] [place] [phone] Helena Vidal APRN, C.NGeovany., M.S.N. [address] [place] [phone] 12/21/2024 9:30 AM CDT Appointment Department of Laboratory Medicine in [address] [phone] Helena Vidal APRN, C.NGeovany., M.S.N. [address] [place] [phone] 12/28/2024 9:30 AM CDT Appointment Department of Laboratory Medicine in [address] [phone] Helena Vidal APRN, C.NMike, M.S.N. [address] [place] [phone] 12/31/2024 11:15 AM CDT Appointment Department of Radiology, [facility], in [place], [place] [address] [place] [phone] Helena Vidal APRN, C.N.P., M.S.N. [address] [place] [phone] 01/03/2025 8:00 AM CDT Appointment Department of Laboratory Medicine in [address] [phone] Helena Vidal APRN, C.NGeovany., M.S.N. [address] [place] [phone] 01/04/2025 10:00 AM CDT Office Visit Division of Hematology in [place], [place] [address] [place] [phone] Helena Vidal APRN, C.NGeovany., M.S.N. [address] [place] [phone] 01/05/2025 8:00 AM CDT Infusion Department of Oncology in [place], [place] [address] [place] [phone] Helena Vidal APRN, C.NGeovany., M.S.N. [address] [place] [phone] 01/11/2025 9:30 AM CDT Appointment Department of Laboratory Medicine in [address] [phone] Helena Vidal APRN, C.NMike, M.S.N. [address] [place] [phone] 01/18/2025 9:30 AM CDT Appointment Department of Laboratory Medicine in [address] [phone] Helena Vidal APRN, C.N.P., M.S.N. [address] [place] [phone] 02/01/2025 9:30 AM CDT Appointment Department of Laboratory Medicine in [address] [phone] Helena Vidal APRN, C.NMike, M.S.N. [address] [place] [phone] 02/08/2025 9:30 AM CDT Appointment Department of Laboratory Medicine in [address] [phone] Helena Vidal APRN, C.N.Lydia., M.S.N. [address] [place] [phone] 02/22/2025 9:30 AM CDT Appointment Department of Laboratory Medicine in [address] [phone] Helena Vidal APRN, C.NMike, M.S.N. [address] [place] [phone] 03/01/2025 9:30 AM CDT Appointment Department of Laboratory Medicine in [address] [phone] Helena Vidal APRN, C.N.Lydia., M.S.N. [address] [place] [phone] 03/15/2025 9:30 AM MANAGER OF PHOTOGRAPHY Appointment Department of Laboratory Medicine in [address] [phone] Helena Vidal APRN, C.N.P., M.S.N. [address] [place] [phone] 03/22/2025 9:30 AM MANAGER OF PHOTOGRAPHY Appointment Department of Laboratory Medicine in [address] [phone] Helena Vidal APRN, C.N.P., M.S.N. 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 This test has not been cleared or approved by the U.S. Food and Drug Administration. This test is intended to be used as an adjunct to existing clinical and pathologic information and is not intended as a sole diagnostic or screening assay. Since only a portion of the tumor was evaluated, it is possible the result obtained may not represent the entire tumor population. Testing results are optimized for non-decalcified paraffin embedded specimens with a cold ischemia time of less than 1 hour, fixed in 10% neutral buffered formalin between 6 and 72 hours; results obtained from specimens fixed outside these parameters should be interpreted accordingly. This test does not rule out other chromosome or molecular abnormalities. 11/15/2024 12:28 PM CDT DTL Released By Reji Alvarez M.D., Ph.D. 11/15/2024 12:28 PM CDT DTL Result Table ----- Abnormality Name Result Abn% Cutoff% 18q21(BCL2 sep) Abnormal 74 <25.0 8q24.1(MYC sep) Normal <25.0 t(8;14) MYC/IGH fusion Normal <15.0 3q27(BCL6 sep) Normal <25.0 ----- 11/15/2024 12:28 PM CDT DTL Result nuc stephanie(D8Z2x2,MYCx2,I GHx3)[64/100],(BCL 2x2)(3'BCL2 sep 5'BCL2x1)[74/100] 11/15/2024 12:28 PM CDT DTL Reason for Referral r/o double hit lymphoma 11/15/2024 12:28 PM CDT DTL Specimen Tissue, Slides, Formalin 11/15/2024 12:28 PM CDT DTL Source soft tissue 11/15/2024 12:28 PM CDT DTL Tissue ID [id number] 11/15/2024 12:28 PM CDT DTL Method Locus and probes [Strategy;#Nuclei; Vendor] ----- 3q27(3'BCL6,5'BCL6 ) [BAP;100;AM] 8CEN(D8Z2),8q24.1( MYC),14q32(IGH) [DFISH;100;AM] 8q24.1(5'MYC,3'MYC ) [BAP;100;AM] 18q21(3'BCL2,5'BCL 2) [BAP;100;AM] Probe strategies include: DFISH=dual color, double fusion; BAP=break-apart probe. Scoring Method: Manual Probe vendors include: AM = [employer] ([place], [place]) 11/15/2024 12:28 PM CDT DTL Interpretation The result is abnormal and indicates a rearrangement of the BCL2 gene region was identified. No rearrangement of MYC or BCL6 and no IGH::MYC fusion was observed. Rearrangements of BCL2 have been associated with several B-cell lymphomas, including but not limited to follicular lymphoma, diffuse large B-cell lymphoma, and high-grade B-cell lymphoma (1). As no MYC rearrangement and no IGH::MYC fusion was observed, it is unlikely this represents Diffuse large B-cell lymphoma/high-grad e B-cell lymphoma with MYC and BCL2 rearrangements (2) or High-grade B-cell lymphoma with MYC and BCL2 rearrangements (3). References: 1. WHO Classification of Tumours: Haematolymphoid Tumours; [place] ([place]): 2023, 5th ed; ISBN 13: 978-0172574037; The International Consensus Classification of Myeloid and Lymphoid Neoplasms; [place] ([place]): 2024; ISBN-13: 978-4188373629 2. WHO Classification of Tumours: Haematolymphoid Tumours; [place] ([place]ad): 2023, 5th ed, p.476-480; ISBN-13: 978-7453310890 3. The International Consensus Classification of Myeloid and Lymphoid Neoplasms; [place] ([place]): 2024, p.552-557; ISBN-13: 978-3551950678 FISH studies interpreted in consultation with Nini Aldridge M.D. This test was ordered in the context of a [facility] pathology consultation/case (#[id number]), and this result should be interpreted within the context of the pathology consultation/repor t. 11/15/2024 12:28 PM CDT DTL Tissue 11/08/2024 12:2 7 PM CDT 11/10/2024 1:42 PM CDT Jose Joshi LAB GENETIC TE STING Final Result [facility] [address] [place] [address], [place] DTL [address] [place] [address] * (ABNORMAL) Cytology Fine Needle Aspiration (including core biopsies) (11/08/2024 12:14 PM CDT) (A) 12:44 PM CDT DTL Disclaimer This test was developed and its performance characteristics determined by [facility] in a manner consistent with CLIA requirements. This test has not been cleared or approved by the U.S. Food and Drug Administration. Test results for (IHC or STEPHANIE) testing are valid for specimens fixed between 6 and 72 hours. Delay to fixation, under fixation or over fixation fall outside of guidelines and may affect these results. (A) 11/15/2024 12:44 PM CDT DTL Report electronically signed by Reji Alvarez M.D., Ph.D. I verify that I have examined all relevant slides/materials for the specimen(s) and rendered or confirmed the diagnosis. (A) 11/15/2024 12:44 PM CDT DTL Gross Description Received 7 alcohol-fixed smears and tissue. Additionally, received in formalin labeled with the patient's name, medical record number and spine, thoracic, right lower thoracicparaspinal mass are five pale [id number] soft tissue cores and three fragments, 0.2 cm in average diameter, and ranging from 0.3-1.2cm in length. Specimens are submitted en toto in cassettes A1-A2, A1 containing three cores and A2 containing two cores and threefragments. Grossed by DAVID. (A) 11/15/2024 12:44 PM CDT DTL Source A. Soft Tissue, Right lower thoracic paraspinal mass, fine needle aspiration (A) 11/15/2024 12:44 PM CDT DTL Interpretation A. Soft Tissue, Right lower thoracic paraspinal mass, fine needle aspiration (smears/tissue): Positive for malignancy. Diffuse large B-cell lymphoma, NOS. See comment. 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 It has a germinal center B-cell phenotype per the Edgard algorithm. It is not a double-expresser by immunohistochemistry (BCL2-positive and MYC-negative). Core needle biopsy shows a diffuse proliferation of intermediate to large sized abnormal lymphocytes with irregular nuclear contours. Numerous mitotic bodies and extensive necrosis are present. Immunohistochemical stains were performed at [facility] (block A1: CD3, CD10, CD20, CD21, CD23, BCL2, BCL6, MUM1, and MYC; block A2: CD21 and CD23). Current cutoff values for positivity are: CD10, BCL6 and MUM1 greater than/equal to 30%; MYC greater than/equal to 40%; BCL2 greater than 50%. The abnormal large cells are positive for CD20, with coexpression of CD10, BCL2, and BCL6. They are negative for the remaining markers tested. CD21 and CD23 staining show an absence of underlying follicular dendritic cell networks. FISH analysis for BLYM, soft Tissue, Right lower thoracic paraspinal mass, performed at [facility] in [place], [place] ([id number]; NR [id number], block A1; 11/08/2024): The result is abnormal and indicates a rearrangement of the BCL2 gene region was identified. 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) documented in this encounter Administered Medications Inactive Administered Medications - up to 3 most recent administrations Medication Order MAR Action Action Date Dose Rate Site acetaminophen tablet 1,000 mg (TylenoL) 1,000 mg, oral, Once as needed, mild pain or score 1-3 of 10, Starting on Fri11/08/24 at 1303, For 1 dose fentaNYL injection 25 mcg (Sublimaze) 25 mcg, intravenous, Once as needed, sedation, Starting on Fri11/08/24 at 1215, For 1 dose, Intraprocedure (RAD), IV Push, Initial dose fentaNYL injection 25 mcg (Sublimaze) 25 mcg, intravenous, Every 2 min PRN, sedation, Administer over 1 minute immediately prior to the procedure. May repeat every 2 minutes to a maximum of 200 mcg, until pain score of 3 or less, or until the patient meets the pain comfort goal, or RASS 0 to -2. Do not give if respiratory rate is less than 8 breaths/minute., Starting on Fri11/08/24 at 1215, Intraprocedure (RAD), Subsequent doses Given 11/08/2024 12:27 PM CDT 25 mcg Given 11/08/2024 12:23 PM CDT 25 mcg flumazeniL injection 0.2 mg (Romazicon) 0.2 mg, intravenous, Once as needed, reversal, Starting on Fri11/08/24 at 1215, For 1 dose, Intraprocedure (RAD), Administer once if patient has a RASS score of -4, -5 and has a respiratory rate less than 8 breaths/minute. Lactated Ringer's 20 mL/hr, intravenous, Once as needed, to keep vein open, Starting on Fri11/08/24 at 1215, For 1 dose, Intraprocedure (RAD) lidocaine (PF) 10 mg/mL (1 %) injection (Xylocaine) As needed, Starting on Fri11/08/24 at 1252, Intra-Op Given 11/08/2024 12:52 PM CDT 4 mL midazolam (PF) injection 0.25 mg (Versed) 0.25 mg, intravenous, Every 2 min PRN, sedation, RASS -2, Starting on Fri11/08/24 at 1215, For 3 hours, Intraprocedure (RAD), May repeat every 2 minutes to a maximum of 5 mg. Do not give if respiratory rate is less than 8 breaths/minute. midazolam (PF) injection 0.5 mg (Versed) 0.5 mg, intravenous, Once as needed, sedation, Starting on Fri11/08/24 at 1215, For 1 dose, Intraprocedure (RAD) midazolam (PF) injection 0.5 mg (Versed) 0.5 mg, intravenous, Every 2 min PRN, sedation, RASS -1, Starting on Fri11/08/24 at 1215, For 3 hours, Intraprocedure (RAD), May repeat every 2 minutes for a maximum of 5 mg. Do not give if respiratory rate is less than 8 breaths/minute. Given 11/08/2024 12:27 PM CDT 0.5 mg Given 11/08/2024 12:23 PM CDT 0.5 mg midazolam (PF) injection 1 mg (Versed) 1 mg, intravenous, Every 2 min PRN, sedation, RASS 0, Starting on Fri11/08/24 at 1215, For 3 hours, Intraprocedure (RAD), May repeat every 2 minutes for a maximum of 5 mg. Do not give if respiratory rate is less than 8 breaths/minute. naloxone injection 0.2 mg (Narcan) 0.2 mg, intravenous, Once as needed, respiratory depression, Starting on Fri11/08/24 at 1215, For 1 dose, Intraprocedure (RAD), Administer once if patient has a RASS score of -4, -5 and has a respiratory rate less than 8 breaths/minute. sodium bicarbonate injection As needed, Starting on Fri11/08/24 at 1253, Intra-Op Given 11/08/2024 12:53 PM CDT 6 mL sodium chloride 0.9 % injection 10 mL 10 mL, intravenous, As needed, line care, Starting on Fri11/08/24 at 1006, Preprocedure (RAD), Peripheral Intravenous Catheter and Rapid Infusion Catheter, prior to blood sampling, post blood transfusion or post blood sampling sodium chloride 0.9 % injection 3 mL 3 mL, intravenous, As needed, line care, Starting on Fri11/08/24 at 1006, Preprocedure (RAD), Prior to and following infusion and between multiple consecutive infusions: sodium chloride 0.9 % injection sodium chloride 0.9 % injection 3 mL 3 mL, intravenous, Every 12 hours scheduled, First dose on Fri11/08/24 at 2100, Preprocedure (RAD), Peripheral Intravenous Catheter and Rapid Infusion Catheter, when no infusion to maintain patency documented in this encounter Active and Recently Administered Medications Times are shown in CDT. Scheduled Medication Order 11/06/2024 11/07/2024 11/08/2024 Lactated Ringer's bolus 500 mL 500 mL, intravenous, at 500 mL/hr, Administer over 1 Hours, Once, On Fri11/08/24 at 1245, For 1 dose, Intraprocedure (RAD) 1245 (Due) sodium chloride 0.9 % injection 3 mL 3 mL, intravenous, Every 12 hours scheduled, First dose on Fri11/08/24 at 2100, Preprocedure (RAD), Peripheral Intravenous Catheter and Rapid Infusion Catheter, when no infusion to maintain patency PRN Medication Order 11/06/2024 11/07/2024 11/08/2024 acetaminophen tablet 1,000 mg (TylenoL) 1,000 mg, oral, Once as needed, mild pain or score 1-3 of 10, Starting on Fri11/08/24 at 1303, For 1 dose fentaNYL injection 25 mcg (Sublimaze) 25 mcg, intravenous, Once as needed, sedation, Starting on Fri11/08/24 at 1215, For 1 dose, Intraprocedure (RAD), IV Push, Initial dose fentaNYL injection 25 mcg (Sublimaze) 25 mcg, intravenous, Every 2 min PRN, sedation, Administer over 1 minute immediately prior to the procedure. May repeat every 2 minutes to a maximum of 200 mcg, until pain score of 3 or less, or until the patient meets the pain comfort goal, or RASS 0 to -2. Do not give if respiratory rate is less than 8 breaths/minute., Starting on Fri11/08/24 at 1215, Intraprocedure (RAD), Subsequent doses 1223 (Given - Provid er: Breana Campos R.N.)1227 (Given - Provider: Breana Campos R.N.) flumazeniL injection 0.2 mg (Romazicon) 0.2 mg, intravenous, Once as needed, reversal, Starting on Fri11/08/24 at 1215, For 1 dose, Intraprocedure (RAD), Administer once if patient has a RASS score of -4, -5 and has a respiratory rate less than 8 breaths/minute. Lactated Ringer's 20 mL/hr, intravenous, Once as needed, to keep vein open, Starting on Fri11/08/24 at 1215, For 1 dose, Intraprocedure (RAD) lidocaine (PF) 10 mg/mL (1 %) injection (Xylocaine) (COMPLETED) As needed, Starting on Fri11/08/24 at 1252, Intra-Op 1252 (Given - Provid er: Audi Elias M.D. - Comment: Spine Thoracic) midazolam (PF) injection 0.25 mg (Versed) 0.25 mg, intravenous, Every 2 min PRN, sedation, RASS -2, Starting on Fri11/08/24 at 1215, For 3 hours, Intraprocedure (RAD), May repeat every 2 minutes to a maximum of 5 mg. Do not give if respiratory rate is less than 8 breaths/minute. midazolam (PF) injection 0.5 mg (Versed) 0.5 mg, intravenous, Once as needed, sedation, Starting on Fri11/08/24 at 1215, For 1 dose, Intraprocedure (RAD) midazolam (PF) injection 0.5 mg (Versed) 0.5 mg, intravenous, Every 2 min PRN, sedation, RASS -1, Starting on Fri11/08/24 at 1215, For 3 hours, Intraprocedure (RAD), May repeat every 2 minutes for a maximum of 5 mg. Do not give if respiratory rate is less than 8 breaths/minute. 1223 (Given - Provid er: Breana Campos R.N.)1227 (Given - Provider: Breana Campos R.N.) midazolam (PF) injection 1 mg (Versed) 1 mg, intravenous, Every 2 min PRN, sedation, RASS 0, Starting on Fri11/08/24 at 1215, For 3 hours, Intraprocedure (RAD), May repeat every 2 minutes for a maximum of 5 mg. Do not give if respiratory rate is less than 8 breaths/minute. naloxone injection 0.2 mg (Narcan) 0.2 mg, intravenous, Once as needed, respiratory depression, Starting on Fri11/08/24 at 1215, For 1 dose, Intraprocedure (RAD), Administer once if patient has a RASS score of -4, -5 and has a respiratory rate less than 8 breaths/minute. sodium bicarbonate injection (CANCELED) As needed, Starting on Fri11/08/24 at 1253, Intra-Op 1253 (Given - Provid er: Audi Elias M.D. - Comment: right thoracic) sodium chloride 0.9 % injection 10 mL 10 mL, intravenous, As needed, line care, Starting on Fri11/08/24 at 1006, Preprocedure (RAD), Peripheral Intravenous Catheter and Rapid Infusion Catheter, prior to blood sampling, post blood transfusion or post blood sampling sodium chloride 0.9 % injection 3 mL 3 mL, intravenous, As needed, line care, Starting on Fri11/08/24 at 1006, Preprocedure (RAD), Prior to and following infusion and between multiple consecutive infusions: sodium chloride 0.9 % injection documented in this encounter Care Teams Radiographer Cardiac Catheterization Relationship Specialty Start Date End Date Elsewhere, Pcp PCP - General Internal Medicine 10/22/24 documented as of this encounter
--- OUTSIDE RECORDS SUMMARY | 2024-11-15 13:00 | XMS_ITS | Encounter Summary ---
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 [address] [place] [phone] Phone: tel: fax: [facility] Referral ID Status Reason Start Date Expiration Date V isits Requested Visits Authorized [id number] Authorized 11/15/2024 02/15/2026 8 8 Reason for Visit * Outpatient (Routine) - Closed Specialty Diagnoses / Procedures Referred By Valdemar johnson Referred To Contact Hematology Oncology Jose Fang M.B.B.S. [address] [place] [phone] Phone: tel: fax: [facility] Referral ID Status Reason Start Date Expiration Date Visits Re quested Visits Authorized [id number] Closed 11/03/2024 05/05/2026 1 1 Encounter Details Date Type Department Care Team (Late st Contact Info) Description 11/15/2024 1:00 PM CDT Office Visit Division of Hematology in [place], [place] [address] [place] [phone] Helena Vidal APRN, C.N.PKwasi, M.S.N. 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, gas, oil, or water openPeople threatened to shut off services in your [...] your living situation today? I have a [facility] place to live 10/22/2024 Education Answer Date Recorded What is the highest level of school you have completed or the highest degree you have received? Associate degree: occupational, technical, or vocational program 10/10/2020 Sex and Gender Information Value Date Recorded Sex Assigned at Male 06/01/2018 2:30 PM FORGING DIES FINAL FINISHER Legal Sex Male 10:26 AM FORGING DIES FINAL FINISHER Gender Identity Male 06/01/2018 2:30 PM FORGING DIES FINAL FINISHER Sexual Orientation Straight 06/01/2018 2: 30 PM FORGING DIES FINAL FINISHER documented as of this encounter Last Filed Vital Signs Vital Sign Reading Time Taken Comments Blood Pressure 157/79 11/15/2024 12:39 PM CDT Pulse 80 11/15/2024 12:39 PM CDT Temperature - - Respiratory Rate - - Oxygen Saturation - - Inhaled Oxygen Concentration - - Weight - - Height 169.5 cm (5' 6.73) 11/15/2024 12:39 PM C DT Body Mass Index - - documented in this encounter Progress Notes * Helena Vidal APRN, C.N.P., M.S.N. - 11/15/2024 1:00 PM CDT HEMATOLOGY LYMPHOMA CLINIC FOLLOW UP NOTE Primary textile engraver: Kourtney Campos Care Team WALTER: Michelle Vidal APRN SENIOR IT SPECIALIST Chief complaint/Reason of the visit: Follow up appointment with recent biopsy results after recent imaging finding showing signs of progression. Background: Mr. De La Paz 84-year-old who was diagnosed with follicular lymphoma back in 2015 and he has been on observation and did not require treatment previously Oncology History 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) 09/25/2015 Initial Diagnosis Follicular lymphoma, grade 2, stage EDIE, FLIPI2 Interval progress: I saw Mr. De La Paz today in the clinic accompanied by his . He continues experiencing right-sided flank pain for several weeks, occasionally radiating anteriorly. A recent PET/CT revealed progression of his lymphoma. A biopsy was then completed showing diffuse large B cell lymphoma. The flank pain remains 2- 3/10 at its worst. He does not require frequent analgesics and takes only one tablet ofTylenol at night as needed, which provides adequate relief. He does have some pain with lying on his back, so lays on his side and is able to sleep. The pain does not wake him up. He denies constitutional symptoms, lower limb weakness, sensory deficits, or bowel/bladder incontinence. OBJECTIVE Vitals: 11/15/24 1239 BP: 157/79 Pulse: 80 Constitutional Appearance: Normal appearance. He is not ill-appearing. Pulmonary Effort: No respiratory distress. Breath sounds: Normal breath sounds. Neurological Mental Status: He is alert and oriented to person, place, and time. Psychiatric Mood and Affect: Mood normal. Behavior: Behavior normal. Thought Content: Thought content normal. Judgment: Judgment normal. DIAGNOSTICS - We have reviewed the recent biopsy results. - His latest chemistry check showing elevation in LDH of 258. WBC 8.2 (ALC 2.62, AMC 1.05), hemoglobin 14.1, platelets 275 ASSESSMENT / PLAN Stage IV low-grade follicular lymphoma: He recently presented with worsening right flank pain, corresponding with significant progression of the right paraspinal mass, which has nearly doubled in size compared to prior imaging. Elevated LDH level and increased FDG avidity on PET scan. Review of the PET scan reveals marked FDG uptake in the right paraspinal mass, as well as involvement of paraesophageal and intra-abdominal lymph nodes. 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 The patient currently has no signs or symptoms of spinal cord compression or neurologic deficits. However, he has been counseled to promptly report any such symptoms should they arise, as they would represent a medical emergency. Discussed with the patient the need to initiate chemotherapy. We will initiate R-CHOP chemo therapy. He will have a MUGA this week. I will put in the treatment plan and sign off orders for appointments. Follow up: Return to clinic to initiate treatment with R-CHOP chemotherapy. Education We discussed the diagnosis and management plan in detail. The patient expressed understanding of the content. No apparent learning barriers were identified; learning preferences include listening. We spent a total of 30 minutes face to face with the patient in reviewing the record, counseling and discussion and/or coordination of care as described above. documented in this encounter Plan of Treatment Upcoming Encounters Date Type Department Care Team (Late st Contact Info) Description 11/30/2024 9:30 AM CDT Appointment Department of Laboratory Medicine in [address] [phone] Helena Vidal APRN, C.N.P., M.S.N. [address] [place] [phone] 12/07/2024 9:30 AM CDT Appointment Department of Laboratory Medicine in [address] [phone] Helena Vidal APRN, C.N.Lydia., M.S.N. [address] [place] [phone] 12/13/2024 8:00 AM CDT Appointment Department of Laboratory Medicine in [address] [phone] Helena Vidal APRN, C.NGeovany., M.S.N. [address] [place] [phone] 12/14/2024 10:00 AM CDT Office Visit Division of Hematology in [place], [place] [address] [place] [phone] Helena Vidal APRN, C.N.P., M.S.N. [address] [place] [phone] 12/15/2024 7:30 AM CDT Infusion Department of Oncology in [place], [place] [address] [place] [phone] Helena Vidal APRN, C.N.P., M.S.N. [address] [place] [phone] 12/21/2024 9:30 AM CDT Appointment Department of Laboratory Medicine in [address] [phone] Helena Vidal APRN, RenzoNGeovany., M.S.N. [address] [place] [phone] 12/28/2024 9:30 AM CDT Appointment Department of Laboratory Medicine in [address] [phone] Helena Vidal APRN, C.N.Lydia., M.S.N. [address] [place] [phone] 12/31/2024 11:15 AM CDT Appointment Department of Radiology, [facility] in [address] [phone] Helena Vidal APRN, C.NMike, M.S.N. [address] [place] [phone] 01/03/2025 8:00 AM CDT Appointment Department of Laboratory Medicine in [address] [phone] Helena Vidal APRN, C.NGeovany., M.S.N. [address] [place] [phone] 01/04/2025 10:00 AM CDT Office Visit Division of Hematology in [address] [phone] Helena Vidal APRN, C.N.P., M.S.N. [address] [place] [phone] 01/05/2025 8:00 AM CDT Infusion Department of Oncology in [address] [phone] Helena Vidal APRN, C.N.P., M.S.N. [address] [place] [phone] 01/11/2025 9:30 AM CDT Appointment Department of Laboratory Medicine in [address] [phone] Helena Vidal APRN, C.N.P., M.S.N. [address] [place] [phone] 01/18/2025 9:30 AM CDT Appointment Department of Laboratory Medicine in [address] [phone] Helena Vidal APRN, C.N.P., M.S.N. [address] [place] [phone] 02/01/2025 9:30 AM CDT Appointment Department of Laboratory Medicine in [address] [phone] Helena Vidal APRN, C.NMike, M.S.N. [address] [place] [phone] 02/08/2025 9:30 AM CDT Appointment Department of Laboratory Medicine in [address] [phone] Helena Vidal APRN, C.NGeovany., M.S.N. [address] [place] [phone] 02/22/2025 9:30 AM CDT Appointment Department of Laboratory Medicine in [address] [phone] Helena Vidal APRN, C.N.Lydia., M.S.N. [address] [place] [phone] 03/01/2025 9:30 AM CDT Appointment Department of Laboratory Medicine in [address] [phone] Helena Vidal APRN, C.N.Lydia., M.S.N. [address] [place] [phone] 03/15/2025 9:30 AM FORGING DIES FINAL FINISHER Appointment Department of Laboratory Medicine in [address] [phone] Helena Vidal APRN, C.N.Lydia., M.S.N. [address] [place] [phone] 03/22/2025 9:30 AM FORGING DIES FINAL FINISHER Appointment Department of Laboratory Medicine in [address] [phone] Helena Vidal APRN, C.N.P., M.S.N. 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) Expected: 12/14/2024, Expires: 12/14/2025 CBC with Differential, Blood Lab Routine 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) Expected: 01/04/2025, Expires: 01/05/2028 Comprehensive Metabolic Panel Lab Routine 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) Expected: 01/04/2025, Expires: 01/04/[address] Skull to Thigh FDG Imaging RAD - Routine (most inpatients and all outpatients) 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) Expected: 12/31/2024, Expires: 11/15/2025 Scheduled Referrals Name Type Priority Associated Diagnoses Order Schedule Hematology - Chemo education visit (clinic) Outpatient Referral Routine 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) Expected: 11/15/2024, Expires: 02/15/2026 Hematology office visit (clinic) [facility]; Lymphoma; General Outpatient Referral Routine 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) Expected: 11/23/2024, Expires: 02/23/2026 Hematology office visit (clinic) [facility]; Lymphoma; General Outpatient Referral Routine 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) Expected: 12/14/2024, Expires: 03/16/2026 Hematology office visit (clinic) [facility]; Lymphoma; General Outpatient Referral Routine 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 LAB BLOOD NON ADD-ON Final Result Performing Organization Address City/[facility]/ZIP Co de Phone Number [facility] [address] 200 [place] [address] * Phosphorus Inorganic (11/22/2024 9:10 AM CDT) Phosphorus (Inorganic), S 3.7 2.5 - 4.5 mg/dL 11/22/2024 10:12 AM CDT DTL Blood (Blood, Venous) 11/22/2024 9:10 AM CDT 11/22/2024 9:33 AM CDT Jennifer Mueller APRN.N.P., M.S.N. LAB BLOOD ADD-ON Final Result Performing Organization Address [facility] Co de Phone Number [facility] [address] 200 [place] [address] * Uric Acid (11/22/2024 9:10 AM CDT) Uric Acid, S 3.8 3.7 - 8.0 mg/dL 11/22/2024 10:12 AM CDT DTL Blood (Blood, Venous) 11/22/2024 9:10 AM CDT 11/22/2024 9:33 AM CDT Jennifer Mueller APRN.N.P., M.S.N. LAB BLOOD ADD-ON Final Result Performing Organization Address City/[facility]/ZIP Co de Phone Number [facility] 200 [place] [address], [place] DTL [facility] [place] [facility] 200 [place] [address] * HCV Ab Scrn w/Reflex to HCV PCR, Serum (11/22/2024 9:10 AM CDT) Pathologist [facility] HCV Ab Screen, S Negative Negative 11/22/2024 2:22 PM CDT [facility] Comment: Consumption of high-dose biotin supplement within 12 hours of blood collection for this test can cause false-negative results. Blood (Blood, Venous) 11/22/2024 9:10 AM CDT 11/22/2024 11:33 AM CDT Herson Mueller APRN., M.S.N. LAB MICROBIOLOGY - BLOOD ORDERABLES Final Result [facility] [address] [place] [address] [facility] [address] [place] [address] * HBc Total Ab Scrn, Serum (11/22/2024 9:10 AM CDT) [facility] HBc Total Ab Scrn, S Negative Negative 11/22/2024 2:22 PM CDT [facility] Blood (Blood, Venous) 11/22/2024 9:10 AM CDT 11/22/2024 11:33 AM CDT Jennifer Mueller APRN.N. Lydia., M.S.N. LAB MICROBIOLOGY - BLOOD ORDERABLES Final Result [facility] [address] [place] [address] [facility] [address] [place] [address] * HBs Antigen Scrn, Serum (11/22/2024 9:10 AM CDT) Pathologist [facility] HBs Antigen Scrn, S Negative Negative 11/22/2024 2:22 PM CDT [facility] Blood (Blood, Venous) 11/22/2024 9:10 AM CDT 11/22/2024 11:33 AM CDT Herson Mueller APRN, M.S.N. LAB MICROBIOLOGY - BLOOD ORDERABLES Final Result [facility] [address] [place] [address] [facility] [address] [place] [address] * (ABNORMAL) Comprehensive Metabolic Panel (11/22/2024 9:10 AM CDT) Potassium, S 5.0 3.6 - 5.2 mmol/L 11/22/2024 10:12 AM CDT DTL Sodium, S 134(L) 135 - 145 mmol/L 11/22/2024 10:12 AM CDT DTL Chloride, S 97(L) 98 - 107 mmol/L 11/22/2024 10:12 AM CDT DTL Bicarbonate, S 27 22 - 29 mmol/L 11/22/2024 10:12 AM CDT DTL Anion Gap 10 7 - 15 11/22/2024 10:12 AM CDT DTL BUN (Blood Urea Nitrogen), S 15 8 - 24 mg/dL 11/22/2024 10:12 AM CDT DTL Creatinine 1.02 0.74 - 1.35 mg/dL 11/22/2024 10:12 AM CDT DTL Estimated GFR (eGFR) 73 >=60 mL/min/BS A 11/22/2024 10:12 AM CDT DTL Comment: Estimated GFR calculated using the 2020 CKD_EPI creatinine equation. Calcium, Total, S 9.2 8.8 - 10.2 mg/dL 11/22/2024 10:12 AM CDT DTL Glucose, S 84 70 - 140 mg/dL 11/22/2024 10:12 AM CDT DTL Protein, Total, S 6.2(L) 6.3 - 7.9 g/dL 11/22/2024 10:12 AM CDT DTL Albumin, S 4.1 3.5 - 5.0 g/dL 11/22/2024 10:12 AM CDT DTL Aspartate Aminotransferase (AST), S 19 8 - 48 U/L 11/22/2024 10:12 AM CDT DTL Alkaline Phosphatase, S 78 40 - 129 U/L 11/22/2024 10:12 AM CDT DTL Alanine Aminotransferase (ALT), S 15 7 - 55 U/L 11/22/2024 10:12 AM CDT DTL Bilirubin, Total, S 0.6 0.0 - 1.2 mg/dL 11/22/2024 10:12 AM CDT DTL Blood (Blood, Venous) 11/22/2024 9:10 AM CDT 11/22/2024 9:33 AM CDT Jennifer Mueller APRN.N.P., M.S.N. LAB BLOOD ADD-ON Final Result [facility] [address] [place] [address], [facility] [address] [place] [address] * (ABNORMAL) CBC with Differential, Blood (11/22/2024 9:10 AM CDT) Hemoglobin 13.6 13.2 - 16.6 g/dL 11/22/2024 10:26 AM CDT DTL Hematocrit 41.7 38.3 - 48.6 % 11/22/2024 10:26 AM CDT DTL Erythrocytes 4.78 4.35 - 5.65 x10(12)/L 11/22/2024 10:26 AM CDT DTL MCV 87.2 78.2 - 97.9 fL 11/22/2024 10:26 AM CDT DTL RBC Distrib Width 13.0 11.8 - 14.5 % 11/22/2024 10:26 AM CDT DTL Platelet Count 276 135 - 317 x10(9)/L 11/22/2024 10:26 AM CDT DTL Leukocytes 9.4 3.4 - 9.6 x10(9)/L 11/22/2024 10:26 AM CDT DTL Neutrophils 5.47 1.56 - 6.45 x10(9)/L 11/22/2024 10:26 AM CDT DHPM Lymphocytes 2.49 0.95 - 3.07 x10(9)/L 11/22/2024 10:26 AM CDT DTL Monocytes 1.28(H) 0.26 - 0.81 x10(9)/L 11/22/2024 10:26 AM CDT DTL Eosinophils 0.09 0.03 - 0.48 x10(9)/L 11/22/2024 10:26 AM CDT DTL Basophils 0.05 0.01 - 0.08 x10(9)/L 11/22/2024 10:26 AM CDT DTL Blood (Blood, Venous) 11/22/2024 9:10 AM CDT 11/22/2024 9:36 AM CDT Helena Vidal APRN, Jennifer.N.P., M.S.N. LAB BLOOD ADD-ON Final Result [facility] 200 [place] [address], [facility] DTL [facility] 200 [place] [address] DHPM [facility] 200 [place] [address] * NM Cardiac Blood Pool MUGA (11/18/2024 9:42 AM CDT) 11/18/2024 8:29 AM CDT Narrative CV MERGE - 11/18/2024 11:37 AM CDT See PDF For Result Procedure Note Elver Arshad M.D. - 11/18/2024 See PDF For Result Helena Vidal APRN, Jennifer.N.P., M.S.N. 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
--- OUTSIDE RECORDS SUMMARY | 2024-11-18 08:28 | XMS_ITS | Encounter Summary ---
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 [address] [place] [phone] Phone: tel: fax: 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 [address] [place] [address] Phone: tel: fax: [facility] Referral ID Status Reason Start Date Expiration Date V isits Requested Visits Authorized [id number] Authorized 11/15/2024 02/15/2026 8 8 Encounter Details Date Type Department Care Team (Latest Contact Info) Description 11/18/2024 8:28 AM CDT - 11/18/2024 11:59 PM CDT Hospital Encounter Department of Radiology, [facility], in [place], [place] [address] [place] [address] Helena Vidal APRN, C.N.P., M.S.N. 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 [facility] 10/22/2024 Education Answer Date Recorded What is the highest level of school you have completed or the highest degree you have received? Associate degree: occupational, technical, or vocational program 10/10/2020 Sex and Gender Information Value Date Recorded Sex Assigned at Male 06/01/2018 2:30 PM SOIL FERTILITY EXTENSION SPECIALIST Legal Sex Male 10:26 AM SOIL FERTILITY EXTENSION SPECIALIST Gender Identity Male 06/01/2018 2:30 PM SOIL FERTILITY EXTENSION SPECIALIST Sexual Orientation Straight 06/01/2018 2: 30 PM SOIL FERTILITY EXTENSION SPECIALIST documented as of this encounter Medications at Time of Discharge amoxicillin (AMOXIL) 500 mg capsule TAKE 4 CAPSULES (2,000 MG) BY MOUTH ONCE NEEDED 1-2 HRS BEFORE EACH DENTAL APPT FOR 1 YEAR AFTER TJR 07/07/2023 LORazepam (Ativan) 0.5 mg tablet Take 1 tablet by mouth as needed. 04/19/2024 documented as of this encounter Plan of Treatment Upcoming Encounters Date Type Department Care Team (Late st Contact Info) Description 11/30/2024 9:30 AM CDT Appointment Department of Laboratory Medicine in [address] [phone] Helena Vidal APRN, C.N.P., M.S.N. [address] [facility] [place] [address] 12/07/2024 9:30 AM CDT Appointment Department of Laboratory Medicine in [address] [phone] Helena Vidal APRN, C.N.P., M.S.N. [address] [place] [phone] 12/13/2024 8:00 AM CDT Appointment Department of Laboratory Medicine in [address] [phone] Helena Vidal APRN, C.N.P., M.S.N. [address] [place] [phone] 12/14/2024 10:00 AM CDT Office Visit Division of Hematology in [place], [place] [address] [place] [phone] Helena Vidal APRN, C.N.Lydia., M.S.N. [address] [place] [phone] 12/15/2024 7:30 AM CDT Infusion Department of Oncology in [place], [place] [address] [place] [phone] Helena Vidal APRN, C.N.P., M.S.N. [address] [place] [phone] 12/21/2024 9:30 AM CDT Appointment Department of Laboratory Medicine in [address] [phone] Helena Vidal APRN, C.N.P., M.S.N. [address] [place] [phone] 12/28/2024 9:30 AM CDT Appointment Department of Laboratory Medicine in [address] [phone] Helena Vidal APRN, C.NKwasiP., M.S.N. [address] [place] [phone] 12/31/2024 11:15 AM CDT Appointment Department of Radiology, [facility], in [place], [place] [address] [place] [phone] Helena Vidal APRN, C.N.P., M.S.N. [address] [place] [phone] 01/03/2025 8:00 AM CDT Appointment Department of Laboratory Medicine in [address] [phone] Helena Vidal APRN, C.N.Lydia., M.S.N. [address] [place] [phone] 01/04/2025 10:00 AM CDT Office Visit Division of Hematology in [address] [phone] Helena Vidal APRN, C.N.P., M.S.N. [address] [place] [phone] 01/05/2025 8:00 AM CDT Infusion Department of Oncology in [place], [place] [address] [place] [phone] Helena Vidal APRN, C.N.P., M.S.N. [address] [place] [phone] 01/11/2025 9:30 AM CDT Appointment Department of Laboratory Medicine in [address] [phone] Helena Vidal APRN, C.NGeovany., M.S.N. [address] [place] [phone] 01/18/2025 9:30 AM CDT Appointment Department of Laboratory Medicine in [address] [phone] Helena Vidal APRN, C.NGeovany., M.S.N. [address] [place] [phone] 02/01/2025 9:30 AM CDT Appointment Department of Laboratory Medicine in [address] [phone] Helena Vidal APRN, C.NGeovany., M.S.N. [address] [place] [phone] 02/08/2025 9:30 AM CDT Appointment Department of Laboratory Medicine in [address] [phone] Helena Vidal APRN, C.NGeovany., M.S.N. [address] [place] [phone] 02/22/2025 9:30 AM CDT Appointment Department of Laboratory Medicine in [address] [phone] Helena Vidal APRN, C.N.P., M.S.N. [address] [place] [phone] 03/01/2025 9:30 AM CDT Appointment Department of Laboratory Medicine in [address] [phone] Helena Vidal APRN, C.N.P., M.S.N. [address] [place] [phone] 03/15/2025 9:30 AM SOIL FERTILITY EXTENSION SPECIALIST Appointment Department of Laboratory Medicine in [address] [phone] Helena Vidal APRN, C.N.P., M.S.N. [address] [place] [phone] 03/22/2025 9:30 AM SOIL FERTILITY EXTENSION SPECIALIST Appointment Department of Laboratory Medicine in [address] [phone] Helena Vidal APRN, C.NMike, M.S.N. 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 - 11/18/2024 See PDF For Result us Helena A Young FRONT END MANAGER, C.NMike, M.S.N. 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) documented in this encounter Administered Medications Inactive Administered Medications - up to 3 most recent administrations Medication Order MAR Action Action Date Dose Rate Site technetium Tc 99m labeled red blood cells (Tc-99m Ultratag RBC) 16.2-33 millicurie, intravenous, Once, On Michelle 11/18/24 at 0945, For 1 dose, Imaging Protocol Orders Given 11/18/2024 9:16 AM CDT 22 millicuries documented in this encounter Additional Health Concerns Infection Onset Date Last Indicated Resolved Time Protective Environment 11/16/2024 11/16/2024 documented as of this encounter Care Teams Fleet Assistant Relationship Specialty Start Date End Date Elsewhere, Pcp PCP - General Internal Medicine 10/22/24 documented as of this encounter
--- OUTSIDE RECORDS SUMMARY | 2024-11-22 08:42 | XMS_ITS | Encounter Summary ---
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 200 [place] [address] Phone: tel: fax: [address] [phone] Phone: tel: fax: Referral ID Status Reason Start Date Expiration Date V isits Requested Visits Authorized [id number] Authorized 11/15/2024 02/15/2026 99 99 Encounter Details Date Type Department Care Team (Latest Contact Info) Description 11/22/2024 8:42 AM CDT - 11/22/2024 11:59 PM CDT Hospital Encounter Department of Laboratory Medicine and Pathology, [facility], in [place], [place] [address] [place] [phone] Helena Vidal APRN C.NKwasiP., M.S.N. 200 [place] [address] Diffuse Large B-Cell Lymphoma Of Other Extranodal [...] pure alcohol) Stopped consuming alchohol in 1980 [facility] [employer] Answer Date Recorded In the past 12 months has [facility] [employer], gas, oil, or water [employer] threatened to shut off services in your [...] Sex Assigned at Male 06/01/2018 2:30 PM CLINICAL MANAGER Legal Sex Male 10:26 AM CLINICAL MANAGER Gender Identity Male 06/01/2018 2:30 PM CLINICAL MANAGER Sexual Orientation Straight 06/01/2018 2: 30 PM CLINICAL MANAGER documented as of this encounter Medications at Time of Discharge allopurinoL (Zyloprim) 300 mg tabletIndication s: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 Take on Days 1 through 10 for tumor lysis syndrome prophylaxis 10 tablet 11/22/2024 3:30 PM CDT 11/22/2024 amoxicillin (AMOXIL) 500 mg capsule TAKE 4 CAPSULES (2,000 MG) BY MOUTH ONCE NEEDED 1-2 HRS BEFORE EACH DENTAL APPT FOR 1 YEAR AFTER TJR 07/07/2023 LORazepam (Ativan) 0.5 mg tablet Take 1 tablet by mouth as needed. 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 Take daily starting at bedtime first day of chemotherapy continuing for 4 days after each chemotherapy dose. May take as needed at bedtime after fourth day if nausea/vomiting persists. If you experience nausea/vomiting during Cycle 1, start the night prior to chemotherapy for Cycle 2 and beyond. 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 Days 1 through 5 of each cycle. 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 30 tablet 3 11/22/2024 3:30 PM CDT 11/22/2024 6 documented as of this encounter Plan of Treatment Upcoming Encounters Date Type Department Care Team (Late st Contact Info) Description 11/30/2024 9:30 AM CDT Appointment Department of Laboratory Medicine in [address] [phone] Helena Vidal APRN, C.N.P., M.S.N. [address] [place] [phone] 12/07/2024 9:30 AM CDT Appointment Department of Laboratory Medicine in [address] [phone] Helena Vidal APRN, C.N.P., M.S.N. [address] [place] [phone] 12/13/2024 8:00 AM CDT Appointment Department of Laboratory Medicine in [address] [phone] Helena Vidal APRN, C.N.P., M.S.N. [address] [place] [phone] 12/14/2024 10:00 AM CDT Office Visit Division of Hematology in [place], [place] [address] [place] [phone] Helena Vidal APRN, C.N.P., M.S.N. [address] [place] [phone] 12/15/2024 7:30 AM CDT Infusion Department of Oncology in [place], [place] [address] [place] [phone] Helena Vidal APRN, C.N.P., M.S.N. [address] [place] [phone] 12/21/2024 9:30 AM CDT Appointment Department of Laboratory Medicine in [address] [phone] Helena Vidal APRN, C.N.P., M.S.N. [address] [place] [phone] 12/28/2024 9:30 AM CDT Appointment Department of Laboratory Medicine in [address] [phone] Helena Vidal APRN, C.N.P., M.S.N. [address] [place] [phone] 12/31/2024 11:15 AM CDT Appointment Department of Radiology, [facility], in [place], [place] [address] [place] [phone] Helena Vidal APRN, Jennifer.N.P., M.S.N. [address] [place] [phone] 01/03/2025 8:00 AM CDT Appointment Department of Laboratory Medicine in [address] [phone] Helena Vidal APRN, C.N.P., M.S.N. [address] [place] [phone] 01/04/2025 10:00 AM CDT Office Visit Division of Hematology in [place], [place] [address] [place] [phone] Helena Vidal APRN, C.N.P., M.S.N. [address] [place] [phone] 01/05/2025 8:00 AM CDT Infusion Department of Oncology in [place], [place] [address] [place] [phone] Helena Vidal APRN, Jennifer.N.P., M.S.N. [address] [place] [phone] 01/11/2025 9:30 AM CDT Appointment Department of Laboratory Medicine in [address] [phone] Helena Vidal APRN, Jennifer.N.P., M.S.N. [address] [place] [phone] 01/18/2025 9:30 AM CDT Appointment Department of Laboratory Medicine in [address] [phone] Helena Vidal APRN, C.N.Mallory, M.S.N. [address] [place] [phone] 02/01/2025 9:30 AM CDT Appointment Department of Laboratory Medicine in [address] [phone] Helena Vidal APRN, C.N.Lydia., M.S.N. [address] [place] [phone] 02/08/2025 9:30 AM CDT Appointment Department of Laboratory Medicine in [address] [phone] Helena Vidal APRN, C.NGeovany., M.S.N. [address] [place] [phone] 02/22/2025 9:30 AM CDT Appointment Department of Laboratory Medicine in [address] [phone] Helena Vidal APRN, C.N.P., M.S.N. [address] [place] [phone] 03/01/2025 9:30 AM CDT Appointment Department of Laboratory Medicine in [address] [phone] Helena Vidal APRN, C.N.P., M.S.N. [address] [place] [phone] 03/15/2025 9:30 AM CLINICAL MANAGER Appointment Department of Laboratory Medicine in [address] [phone] Helena Vidal APRN, C.N.P., M.S.N. [address] [place] [phone] 03/22/2025 9:30 AM CLINICAL MANAGER Appointment Department of Laboratory Medicine in [address] [phone] Helena Vidal APRN, C.N.P., M.S.N. 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) HCV AB SCRN W/REFLEX TO HCV PCR, S Routine 11/22/2024 9:10 AM CDT 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) CBC WITH DIFFERENTIAL, B Routine 11/22/2024 9:10 AM CDT 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) URIC ACID, S/P Routine 11/22/2024 9:10 AM CDT 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) PHOSPHORUS (INORGANIC), S Routine 11/22/2024 9:10 AM CDT 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) LACTATE DEHYDROGENASE (LD), S Routine 11/22/2024 9:10 AM CDT 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 LAB BLOOD NON ADD-ON Final Result [facility] [address] [place] [address], [facility] [address] [place] [address] * Phosphorus Inorganic (11/22/2024 9:10 AM CDT) Phosphorus (Inorganic), S 3.7 2.5 - 4.5 mg/dL 11/22/2024 10:12 AM CDT DT Blood (Blood, Venous) 11/22/2024 9:10 AM CDT 11/22/2024 9:33 AM CDT Jennifer Mueller APRN.N.P., M.S.N. LAB BLOOD ADD-ON Final Result Performing Organization Address [facility] Co de Phone Number [facility] [address] 200 [place] [address] * Uric Acid (11/22/2024 9:10 AM CDT) Pathologist [facility] Uric Acid, S 3.8 3.7 - 8.0 mg/dL 11/22/2024 10:12 AM CDT DT Blood (Blood, Venous) 11/22/2024 9:10 AM CDT 11/22/2024 9:33 AM CDT Result [facility] Jennifer Mueller APRN.N.P., M.S.N. LAB BLOOD ADD-ON Final Result Performing Organization Address [facility] Co de Phone Number [facility] [address] 200 [place] [address] * HCV Ab Scrn w/Reflex to HCV PCR, Serum (11/22/2024 9:10 AM CDT) Pathologist [facility] HCV Ab Screen, S Negative Negative 11/22/2024 2:22 PM CDT [facility] Comment: Consumption of high-dose biotin supplement within 12 hours of blood collection for this test can cause false-negative results. Blood (Blood, Venous) 11/22/2024 9:10 AM CDT 11/22/2024 11:33 AM CDT Jennifer Mueller APRN.N. P., M.S.N. LAB MICROBIOLOGY - BLOOD ORDERABLES Final Result Performing Organization Address City/[facility]/ZIP Co de Phone Number [facility] [address] [place] [address] [facility] [address] [place] [address] * HBc Total Ab Scrn, Serum (11/22/2024 9:10 AM CDT) HBc Total Ab Scrn, S Negative Negative 11/22/2024 2:22 PM CDT [facility] Blood (Blood, Venous) 11/22/2024 9:10 AM CDT 11/22/2024 11:33 AM CDT Herson Mueller APRN., M.S.N. LAB MICROBIOLOGY - BLOOD ORDERABLES Final Result Performing Organization Address City/[facility] Co de Phone Number [facility] [address] [place] [address] [facility] [address] [place] [address] * HBs Antigen Scrn, Serum (11/22/2024 9:10 AM CDT) Pathologist [facility] HBs Antigen Scrn, S Negative Negative 11/22/2024 2:22 PM CDT [facility] Blood (Blood, Venous) 11/22/2024 9:10 AM CDT 11/22/2024 11:33 AM CDT Renzo Mueller APRNNKwasi Freeman., M.S.N. LAB MICROBIOLOGY - BLOOD ORDERABLES Final Result Performing Organization Address City/[facility]/ZIP Co de Phone Number [facility] [address] [place] [id number] [place] [address] [place] [address] * (ABNORMAL) Comprehensive Metabolic Panel (11/22/2024 9:10 AM CDT) Pathologist [facility] Potassium, S 5.0 3.6 - 5.2 mmol/L [...] 9:10 AM CDT 11/22/2024 9:33 AM CDT Helena Vidal APRN, C.N.P., M.S.N. LAB BLOOD ADD-ON Final Result [facility] [address] [place] [address], [facility] DTL [facility] [address] [place] [address] * (ABNORMAL) CBC with Differential, Blood (11/22/2024 9:10 AM CDT) [facility] Hemoglobin 13.6 13.2 - 16.6 g/dL 11/22/2024 [...] 9:10 AM CDT 11/22/2024 9:36 AM CDT Jennifer Mueller APRN.N.P., M.S.N. 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
--- OUTSIDE RECORDS SUMMARY | 2024-11-22 11:15 | XMS_ITS | Encounter Summary ---
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 200 [place] [address] Phone: tel: fax: [address] [phone] Phone: tel: fax: Referral ID Status Reason Start Date Expiration Date V isits Requested Visits Authorized [id number] Authorized 11/15/2024 02/15/2026 99 99 Encounter Details Date Type Department Care Team (Late st Contact Info) Description 11/22/2024 11:15 AM CDT Office Visit Division of Hematology in [place], [place] [address] [place] [phone] Helena Vidal APRN, C.N.P., M.S.N. 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 I have a [facility] place to live 10/22/2024 Education Answer Date Recorded What is the highest level of school you have completed or the highest degree you have received? Associate degree: occupational, technical, or vocational program 10/10/2020 Sex and Gender Information Value Date Recorded Sex Assigned at Male 06/01/2018 2:30 PM FAST FOOD ATTENDANT Legal Sex Male 10:26 AM FAST FOOD ATTENDANT Gender Identity Male 06/01/2018 2:30 PM FAST FOOD ATTENDANT Sexual Orientation Straight 06/01/2018 2: 30 PM FAST FOOD ATTENDANT documented as of this encounter Last Filed Vital Signs Vital Sign Reading Time Taken Comments Blood Pressure 138/81 11/22/2024 10:50 AM CDT Pulse 66 11/22/2024 10:50 AM CDT Temperature 36.5 C (97.7 F) 11/22/2024 10:50 AM CDT Respiratory Rate - - Oxygen Saturation 97% 11/22/2024 10: 50 AM CDT Inhaled Oxygen Concentration - - Weight 79.8 kg (175 lb 13.1 oz) 025 10:50 AM CDT Height 169 cm (5' 6.54) 11/22/2024 10: 50 AM CDT Body Mass Index 27.92 11/22/2024 10:50 AM CDT documented in this encounter Progress Notes * Helena Vidal APRN, C.N.P., M.S.N. - 11/22/2024 11:15 AM CDT HEMATOLOGY LYMPHOMA CLINIC FOLLOW UP NOTE Primary nuisance wildlife specialist: Kourtney Campos Care Team WALTER: Michelle Vidal APRN COMBINE INSPECTOR Chief complaint/Reason of the visit: Evaluation prior to initiation of R-CHOP chemotherapy for his transformed DLBCL. Background: Mr. De La Paz 84-year-old who was diagnosed with follicular lymphoma back in 2016 and he has been on observation and did not require treatment previously. He recently noted right-sided flank pain for several weeks. Biopsy of mass showed DLBCL. 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 De La Paz in the clinic this morning accompanied by his . He continues experiencing right-sided flank pain occasionally radiating anteriorly. He tells me that the pain is a 2-3/10 and hasnot changed since he was last seen. He does not require frequent analgesics and takes only one tablet of Tylenol at night as needed, which provides adequate relief. He does have some pain with lying on his back, so lays on his side and is able to sleep. The pain does not wake him up. He denies fevers, infections, night sweats or palpable adenopathy. He denies any lower limb weakness, sensory deficits, or bowel/bladder incontinence. OBJECTIVE Vitals: 11/22/24 1050 BP: 138/81 Pulse: 66 Temp: 36.5 ??C SpO2: 97% Vitals reviewed. Constitutional Appearance: Normal appearance. He is well-developed. He is not ill-appearing. HENT Head: Normocephalic. Mouth/Throat: Pharynx: No oropharyngeal exudate. Eyes General: Lids are normal. Conjunctiva/sclera: Conjunctivae normal. Cardiovascular Rate and Rhythm: Normal rate and regular rhythm. Heart sounds: Normal heart sounds. No murmur heard. Pulmonary Effort: Pulmonary effort is normal. No respiratory distress. Breath sounds: Normal breath sounds. No decreased breath sounds. Abdominal General: Bowel sounds are normal. Palpations: Abdomen is soft. Tenderness: There is no abdominal tenderness. Lymphadenopathy Cervical: No cervical adenopathy. Upper Body: Right upper body: No supraclavicular or axillary adenopathy. Left upper body: No supraclavicular or axillary adenopathy. Lower Body: No right inguinal adenopathy. No left inguinal adenopathy. Skin General: Skin is warm and dry. Findings: No rash. Neurological General: No focal deficit present. Mental Status: He is alert and oriented to person, place, and time. Psychiatric Mood and Affect: Mood normal. Behavior: Behavior normal. Thought Content: Thought content normal. Judgment: Judgment normal. DIAGNOSTICS Weight: 79.8 kg (11/22/2024 10:50 AM) Height: 169 cm (11/22/2024 10:50 AM) Recent Results (from the past 24 hours) CBC with Differential, Blood Collection Time: 11/22/24 9:10 AM Result Value Hemoglobin 13.6 Hematocrit 41.7 Erythrocytes 4.78 MCV 87.2 RBC Distrib Width 13.0 Platelet Count 276 Leukocytes 9.4 Neutrophils 5.47 Lymphocytes 2.49 Monocytes 1.28 (H) Eosinophils 0.09 Basophils 0.05 Comprehensive Metabolic Panel Collection Time: 11/22/24 9:10 AM Result Value Potassium, S 5.0 Sodium, S 134 (L) Chloride, S 97 (L) Bicarbonate, S 27 Anion Gap 10 BUN (Blood Urea Nitrogen), S 15 Creatinine 1.02 Estimated GFR (eGFR) 73 Calcium, Total, S 9.2 Glucose, S 84 Protein, Total, S 6.2 (L) Albumin, S 4.1 Aspartate Aminotransferase (AST), S 19 Alkaline Phosphatase, S 78 Alanine Aminotransferase (ALT), S 15 Bilirubin, Total, S 0.6 Uric Acid Collection Time: 11/22/24 9:10 AM Result Value Uric Acid, S 3.8 Phosphorus Inorganic Collection Time: 11/22/24 9:10 AM Result Value Phosphorus (Inorganic), S 3.7 LD (Lactate Dehydrogenase) Collection Time: 11/22/24 9:10 AM Result Value Lactate Dehydrogenase (LD), S 271 (H) ASSESSMENT / PLAN Stage IV low-grade follicular [...] as they would represent a medical emergency. Recent MUGA showed an EF of 57%. The patient returns to the clinic today for evaluation prior to initiation of therapy on R-CHOP forhis transformed DLBCL. The patient continues to note right flank pain which is rated at a 2-3/10. His pain has not changed since he was last seen. He continues to be active and exercise. Recent MUGA shows an EF of 57%. The treatment plan was discussed with the patient and his . Homegoing medications were sent to [facility] pharmacy. We discussed the treatment, common side effects and schedule. The patient is anxious to get started on treatment. He also met with one of our lymphoma nurses for chemo education. We will plan to see the patient back in 3 weeks for evaluation prior to cycle 2. Education We discussed the diagnosis and management [...] Upcoming Encounters Date Type Department Care Team ([facility] Info) Description 11/30/2024 9:30 AM CDT Appointment Department of Laboratory Medicine in [address] [phone] Helena Vidal APRN, C.NKwasiP., M.S.N. [address] [place] [phone] 12/07/2024 9:30 AM CDT Appointment Department of Laboratory Medicine in [address] [phone] Helena Vidal APRN, C.NKwasiP., M.S.N. [address] [place] [phone] 12/13/2024 8:00 AM CDT Appointment Department of Laboratory Medicine in [address] [phone] Helena Vidal APRN, C.N.P., M.S.N. [address] [place] [phone] 12/14/2024 10:00 AM CDT Office Visit Division of Hematology in [place], [place] [address] [place] [phone] Helena Vidal APRN, C.N.Lydia., M.S.N. [address] [place] [phone] 12/15/2024 7:30 AM CDT Infusion Department of Oncology in [place], [place] [address] [place] [address] Helena Vidal APRN, Jennifer.N.Lydia., M.S.N. [address] [place] [phone] 12/21/2024 9:30 AM CDT Appointment Department of Laboratory Medicine in [address] [phone] Helena Vidal APRN, C.N.P., M.S.N. [address] [place] [phone] 12/28/2024 9:30 AM CDT Appointment Department of Laboratory Medicine in [address] [phone] Helena Vidal APRN, C.N.P., M.S.N. [address] [place] [phone] 12/31/2024 11:15 AM CDT Appointment Department of Radiology, [facility], in [place], [place] [address] [place] [address] Helena Vidal APRN, C.N.P., M.S.N. [address] [place] [phone] 01/03/2025 8:00 AM CDT Appointment Department of Laboratory Medicine in [address] [phone] Helena Vidal APRN, C.N.Mallory, M.S.N. [address] [place] [phone] 01/04/2025 10:00 AM CDT Office Visit Division of Hematology in [place], [place] [address] [place] [phone] Helena Vidal APRN, C.NMike, M.S.N. [address] [place] [phone] 01/05/2025 8:00 AM CDT Infusion Department of Oncology in [place], [place] [address] [place] [phone] Helena iVdal APRN, C.NGeovany., M.S.N. [address] [place] [phone] 01/11/2025 9:30 AM CDT Appointment Department of Laboratory Medicine in [address] [phone] Helena Vidal APRN, C.N.P., M.S.N. [address] [place] [phone] 01/18/2025 9:30 AM CDT Appointment Department of Laboratory Medicine in [address] [phone] Helena Vidal APRN, C.N.P., M.S.N. [address] [place] [phone] 02/01/2025 9:30 AM CDT Appointment Department of Laboratory Medicine in [address] [phone] Helena Vidal APRN, C.N.P., M.S.N. [address] [place] [phone] 02/08/2025 9:30 AM CDT Appointment Department of Laboratory Medicine in [address] [phone] Helena Vidal APRN, C.N.P., M.S.N. [address] [place] [phone] 02/22/2025 9:30 AM CDT Appointment Department of Laboratory Medicine in [address] [phone] Helena Vidal APRN, C.NMike, M.S.N. [address] [place] [phone] 03/01/2025 9:30 AM CDT Appointment Department of Laboratory Medicine in [address] [phone] Helena Vidal APRN, C.NMike, M.S.N. [address] [place] [phone] 03/15/2025 9:30 AM FAST FOOD ATTENDANT Appointment Department of Laboratory Medicine in [address] [phone] Helena Vidal APRN, C.N.P., M.S.N. 200 [place] [address] 03/22/2025 9:30 AM FAST FOOD ATTENDANT Appointment Department of Laboratory Medicine in [address] [phone] Helena Vidal APRN, C.N.P., M.S.N. 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
--- OUTSIDE RECORDS SUMMARY | 2024-11-22 14:00 | XMS_ITS | Encounter Summary ---
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 200 [place] [address] Phone: tel: fax: [address] [phone] Phone: tel: fax: Referral ID Status Reason Start Date Expiration Date V isits Requested Visits Authorized [id number] Authorized 11/15/2024 02/15/2026 99 99 Encounter Details Date Type Department Care Team (Late st Contact Info) Description 11/22/2024 2:00 PM CDT Education Division of Hematology in [place], [place] [address] [place] [address] Helena Vidal APRN, C.N.P., M.S.N. 200 [place] [address] Shanthi Brewer RKwasiN. 200 [place] [address] Diffuse Large B-Cell Lymphoma Of Other Extranodal [...] pure alcohol) Stopped consuming alchohol in 1980 [facility] [employer] Answer Date Recorded In the past 12 months has e [employer], gas, oil, or water [employer] threatened to shut off services in your [...] Sex Assigned at Male 06/01/2018 2:30 PM MEDIA PROFESSIONAL Legal Sex Male 10:26 AM MEDIA PROFESSIONAL Gender Identity Male 06/01/2018 2:30 PM MEDIA PROFESSIONAL Sexual Orientation Straight 06/01/2018 2: 30 PM MEDIA PROFESSIONAL documented as of this encounter Progress Notes * Shanthi Brewer, R.N. - 11/22/2024 2:00 PM CDT Provider Name Michelle Vidal APRN, CNP has ordered a nurse visit for a pre- treatment assessment and education as part of the treatment protocol. Amrit De La Paz presents today for a pre-chemotherapy assessment and education. Diagnosis: diffuse large B cell lymphoma Patient's Occupation: Retired Lab preference: [place] [facility] Therapy plan: R-CHOP Start Date: 11/23/24 Cycles: 6 HISTORY: Amrit De La Paz reports the following symptoms at baseline: abdominal bloating, abdominal pain, and pain - Patient has some mild pain in his spinal area and abdominal area and gas pains. LEARNING NEEDS ASSESSMENT: done with Patient and . Ready to learn, no apparent learning barriers were identified; learning preferences include listening. Explained diagnosis and treatment plan; patient/child/caregiver expressed understanding of the content. NURSING INTERVENTIONS: INSTRUCTED ON THE FOLLOWING EDUCATION TOPIC(s) Chemotherapy: Treatment schedule, potential side effects the patient may experience, but is not limited to the following: fatigue, weakness, anorexia, nausea, vomiting, diarrhea, constipation, neutropenia, increased risk for infection, increased risk for bleeding, discussed supportive medication, reviewed signs/symptoms to report urgently, review safe handling of body fluids post infusion, dietary precautions, and infection prevention. Potential side effects: patient may experience, but not limited to: fatigue, weakness, anorexia, nausea, vomiting, diarrhea, constipation, neutropenia, increased risk for infection, increased risk for bleeding. ASSESSMENT: Patient verbalized understanding and had no further questions at this time. EDUCATION MATERIAL(s) PROVIDED: - Chemocare/Micromedex and supplemental drug sheets specific to treatment plan - Cardio-Oncology Exercise Program [id number] - Navigator Notes 1604-112 - Chemotherapy and You Support for People With Cancer ([employer] [place]) [id number] - Eating Hints Patients Before, During , and After Treatment [id number] - Information For Patients Receiving Chemotherapy [id number] (green sheet) - Integrative Medicine Program [id number] - Lymphoma Post-Treatment Summary Visit [id number] - Lymphoma Treatment Workbook [id number] - Managing Side Effects of Chemotherapy video [id number] Reviewed what to expect in chemo treatment area, contact info, side effects of chemotherapy and howto manage, as well as when to call. Questions answered. Per Michelle Vidal APRN treatment letter completed for weekly CBC w/differential. PLAN: Proceed with chemotherapy as scheduled. Reinforce education at next visit and subsequent cycles. Encourage patient to call with any questions or side effects. TIME WITH PATIENT: 75 minutes #1 Nurse education visit. #2 Pre-treatment Assessment documented in this encounter Plan of Treatment Upcoming Encounters Date Type Department Care Team ([facility] Contact Info) Description 11/30/2024 9:30 AM CDT Appointment Department of Laboratory Medicine in [address] [phone] Helena Vidal APRN, C.N.P., M.S.N. [address] [place] [phone] 12/07/2024 9:30 AM CDT Appointment Department of Laboratory Medicine in [address] [phone] Helena Vidal APRN, C.N.P., M.S.N. [address] [place] [phone] 12/13/2024 8:00 AM CDT Appointment Department of Laboratory Medicine in [address] [phone] Helean Vidal APRN, C.N.Lydia., M.S.N. [address] [place] [phone] 12/14/2024 10:00 AM CDT Office Visit Division of Hematology in [place], [place] [address] [place] [phone] Helena Vidal APRN, C.N.Lydia., M.S.N. [address] [place] [phone] 12/15/2024 7:30 AM CDT Infusion Department of Oncology in [place], [place] [address] [place] [phone] Helena Vidal APRN, Jennifer.N.P., M.S.N. [address] [place] [phone] 12/21/2024 9:30 AM CDT Appointment Department of Laboratory Medicine in [address] [phone] Helena Vidal APRN, C.N.P., M.S.N. [address] [place] [phone] 12/28/2024 9:30 AM CDT Appointment Department of Laboratory Medicine in [address] [phone] Helena Vidal APRN, C.N.P., M.S.N. [address] [place] [phone] 12/31/2024 11:15 AM CDT Appointment Department of Radiology, [facility], in [place], [place] [address] [place] [phone] Helena Vidal APRN, C.N.P., M.S.N. [address] [place] [phone] 01/03/2025 8:00 AM CDT Appointment Department of Laboratory Medicine in [address] [phone] Helena Vidal APRN, C.N.P., M.S.N. [address] [place] [phone] 01/04/2025 10:00 AM CDT Office Visit Division of Hematology in [address] [phone] Helena Vidal APRN, C.N.P., M.S.N. [address] [place] [phone] 01/05/2025 8:00 AM CDT Infusion Department of Oncology in [address] [phone] Helena Vidal APRN, C.N.P., M.S.N. [address] [place] [phone] 01/11/2025 9:30 AM CDT Appointment Department of Laboratory Medicine in [address] [phone] Helena Vidal APRN, C.N.P., M.S.N. [address] [place] [phone] 01/18/2025 9:30 AM CDT Appointment Department of Laboratory Medicine in [address] [phone] Helena Vidal APRN, C.N.P., M.S.N. [address] [place] [phone] 02/01/2025 9:30 AM CDT Appointment Department of Laboratory Medicine in [address] [phone] Helena Vidal APRN, C.N.P., M.S.N. [address] [place] [phone] 02/08/2025 9:30 AM CDT Appointment Department of Laboratory Medicine in [address] [phone] Helena Vidal APRN, C.NMike, M.S.N. [address] [place] [phone] 02/22/2025 9:30 AM CDT Appointment Department of Laboratory Medicine in [address] [phone] Helena Vidal APRN, C.NMike, M.S.N. [address] [place] [phone] 03/01/2025 9:30 AM CDT Appointment Department of Laboratory Medicine in [address] [phone] Helena Vidal APRN, C.NMike, M.S.N. [address] [place] [phone] 03/15/2025 9:30 AM MEDIA PROFESSIONAL Appointment Department of Laboratory Medicine in [address] [phone] Helena Vidal APRN, C.N.P., M.S.N. [address] [place] [phone] 03/22/2025 9:30 AM MEDIA PROFESSIONAL Appointment Department of Laboratory Medicine in [address] [phone] Helena Vidal APRN, Jennifer.N.P., M.S.N. 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
--- OUTSIDE RECORDS SUMMARY | 2024-11-23 07:30 | XMS_ITS | Encounter Summary ---
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 200 [place] [address] Phone: tel: fax: [address] [phone] Phone: tel: fax: Referral ID Status Reason Start Date Expiration Date V isits Requested Visits Authorized [id number] Authorized 11/15/2024 02/15/2026 99 99 Encounter Details Date Type Department Care Team (Late st Contact Info) Description 11/23/2024 7:30 AM CDT Infusion Department of Oncology in [place], [place] [address] [place] [address] Helena Vidal APRN, C.N.P., M.S.N. 200 [place] [address] Diffuse Large B-Cell Lymphoma Of Other Extranodal [...] Stopped consuming alchohol in 1980 [facility] Utilities Answer Date Recorded In the past 12 months has [facility] [employer], gas, oil, or water [employer] threatened to shut off services in your [...] your living situation today? I have a [facility] place to live 10/22/2024 Education Answer Date Recorded What is the highest level of school you have completed or the highest degree you have received? Associate degree: occupational, technical, or vocational program 10/10/2020 Sex and Gender Information Value Date Recorded Sex Assigned at Male 06/01/2018 2:30 PM WIRE WINDING MACHINE TENDER Legal Sex Male 10:26 AM WIRE WINDING MACHINE TENDER Gender Identity Male 06/01/2018 2:30 PM WIRE WINDING MACHINE TENDER Sexual Orientation Straight 06/01/2018 2: 30 PM WIRE WINDING MACHINE TENDER documented as of this encounter Last Filed Vital Signs Vital Sign Reading Time Taken Comments Blood Pressure 142/81 11/23/2024 12:35 PM CDT Pulse 76 11/23/2024 12:35 PM CDT Temperature 36.2 C (97.2 F) 11/23/2024 7:46 AM CDT Respiratory Rate 16 11/23/2024 11:5 4 AM CDT Oxygen Saturation 93% 11/23/2024 12: 35 PM CDT Inhaled Oxygen Concentration - - Weight 80.2 kg (176 lb 11.2 oz) 11/23/2024 7:46 AM CDT Height - - Body Mass Index 28.06 11/22/2024 10:50 AM CDT documented in this encounter Plan of Treatment Upcoming Encounters Date Type Department Care Team (Late st Contact Info) Description 11/30/2024 9:30 AM CDT Appointment Department of Laboratory Medicine in [address] [phone] Helena Vidal APRN, C.N.P., M.S.N. [address] [place] [phone] 12/07/2024 9:30 AM CDT Appointment Department of Laboratory Medicine in [address] [phone] Helena Vidal APRN, C.N.P., M.S.N. [address] [place] [phone] 12/13/2024 8:00 AM CDT Appointment Department of Laboratory Medicine in [address] [phone] Helena Vidal APRN, C.N.Lydia., M.S.N. [address] [place] [phone] 12/14/2024 10:00 AM CDT Office Visit Division of Hematology in [place], [place] [address] [place] [phone] Helena Vidal APRN, C.N.Lydia., M.S.N. [address] [place] [phone] 12/15/2024 7:30 AM CDT Infusion Department of Oncology in [place], [place] [address] [place] [phone] Helena Vidal APRN, Jennifer.N.P., M.S.N. [address] [place] [phone] 12/21/2024 9:30 AM CDT Appointment Department of Laboratory Medicine in [address] [phone] Helena Vidal APRN, C.N.P., M.S.N. [address] [place] [phone] 12/28/2024 9:30 AM CDT Appointment Department of Laboratory Medicine in [address] [phone] Helena Vidal APRN, C.N.P., M.S.N. [address] [place] [phone] 12/31/2024 11:15 AM CDT Appointment Department of Radiology, [facility], in [place], [place] [address] [place] [phone] Helena Vidal APRN, C.N.P., M.S.N. [address] [place] [phone] 01/03/2025 8:00 AM CDT Appointment Department of Laboratory Medicine in [address] [phone] Helena Vdial APRN, C.N.P., M.S.N. [address] [place] [phone] 01/04/2025 10:00 AM CDT Office Visit Division of Hematology in [address] [phone] Helena Vidal APRN, C.N.P., M.S.N. [address] [place] [phone] 01/05/2025 8:00 AM CDT Infusion Department of Oncology in [address] [phone] Helean Vidal APRN, C.N.P., M.S.N. [address] [place] [phone] 01/11/2025 9:30 AM CDT Appointment Department of Laboratory Medicine in [address] [phone] Helena Vidal APRN, C.N.P., M.S.N. [address] [place] [phone] 01/18/2025 9:30 AM CDT Appointment Department of Laboratory Medicine in [address] [phone] Helena Vidal APRN, C.N.P., M.S.N. [address] [place] [phone] 02/01/2025 9:30 AM CDT Appointment Department of Laboratory Medicine in [address] [phone] Helena Vidal APRN, C.N.P., M.S.N. [address] [place] [phone] 02/08/2025 9:30 AM CDT Appointment Department of Laboratory Medicine in [address] [phone] Helena Vidal APRN, C.NMike, M.S.N. [address] [place] [phone] 02/22/2025 9:30 AM CDT Appointment Department of Laboratory Medicine in [address] [phone] Helena Vidal APRN, C.NMike, M.S.N. [address] [place] [phone] 03/01/2025 9:30 AM CDT Appointment Department of Laboratory Medicine in [address] [phone] Helena Vidal APRN, C.NMike, M.S.N. [address] [place] [phone] 03/15/2025 9:30 AM WIRE WINDING MACHINE TENDER Appointment Department of Laboratory Medicine in [address] [phone] Helena Vidal APRN, C.NGeovany., M.S.N. [address] [place] [phone] 03/22/2025 9:30 AM WIRE WINDING MACHINE TENDER Appointment Department of Laboratory Medicine in [address] [phone] Helena Vidal APRN, C.N.Lyida., M.S.N. 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) documented in this encounter Administered Medications Inactive Administered Medications - up to 3 most recent administrations Medication Order MAR Action Action Date Dose Rate Site acetaminophen tablet 650 mg (TylenoL) 650 mg, oral, Once, On Fri11/23/24 at 0815, For 1 dose, Administer 30 minutes prior to riTUXimab.Indications:Diff use Large B-Cell Lymphoma Of Other Extranodal And Solid Organ Sites (HCC),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) Given 11/23/2024 7:50 AM CDT 650 mg cycloPHOSphamide 1,500 mg in NaCl 0.9% 350 mL IVPB (Cytoxan) 1,500 mg (rounded from 1,440 mg = 750 mg/m2 1.92 m2 Treatment Plan BSA from Measured weight), intravenous, at 700 mL/hr, Administer over 30 Minutes, Once, On Fri11/23/24 at 1315, For 1 doseIndications: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),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) New Bag 11/23/2024 1:55 PM CDT 1,500 mg 700 mL/hr diphenhydrAMINE injection 25 mg (BenadryL) 25 mg, intravenous, Once, On Fri11/23/24 at 0815, For 1 dose, Administer 30 minutes prior to riTUXimab.Indications:Diff use Large B-Cell Lymphoma Of Other Extranodal And Solid Organ Sites (HCC),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 For Intravenous Use Only -- FATAL if given INTRATHECALLY. If being given via PERIPHERAL IV, medication MUST be administered by gravity. If being given via CENTRAL LINE, medication may be administered by pump or gravity. 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
--- OUTSIDE RECORDS SUMMARY | 2024-11-24 13:00 | XMS_ITS | Encounter Summary ---
Author Organization [facility] Address [address] [place] [address] Care Team Providers Care Fence Rider Name Role Phone Elsewhere, Pcp Primary Care [...] INJ Helena Vidal APRN, C.N.P., M.S.N. [address] [place] [phone] Phone: tel: fax: [address] [phone] Phone: tel: fax: Referral ID Status Reason Start Date Expiration Date V isits Requested Visits Authorized [id number] Authorized 11/15/2024 02/15/2026 99 99 Encounter Details Date Type Department Care Team (Late st Contact Info) Description 11/24/2024 1:00 PM CDT Infusion Department of Infusion Therapy in [address] [phone] Helena Vidal APRN, C.N.P., M.S.N. 200 [place] [address] Follicular Lymphoma Grade II Lymph Nodes Of [...] pure alcohol) Stopped consuming alchohol in 1980 [facility] Utilities Answer Date Recorded In the past [address] [facility] [employer] gas, oil, or water [employer] threatened to shut off services in your [...] your living situation today? I have a [facility] place to live 10/22/2024 Education Answer Date Recorded What is the highest level of school you have completed or the highest degree you have received? Associate degree: occupational, technical, or vocational program 10/10/2020 Sex and Gender Information Value Date Recorded Sex Assigned at Male 06/01/2018 2:30 PM SHINGLES ROOFER Legal Sex Male 10:26 AM SHINGLES ROOFER Gender Identity Male 06/01/2018 2:30 PM SHINGLES ROOFER Sexual Orientation Straight 06/01/2018 2: 30 PM SHINGLES ROOFER documented as of this encounter Last Filed Vital Signs Vital Sign Reading Time Taken Comments Blood Pressure 166/52 11/24/2024 1:26 PM CDT Pulse 64 11/24/2024 1:26 PM CDT Temperature 36.2 C (97.2 F) 11/24/2024 1:26 PM CDT Respiratory Rate 18 11/24/2024 1:26 PM CDT Oxygen Saturation 95% 11/24/2024 1:26 PM CDT Inhaled Oxygen Concentration - - Weight - - Height - - Body Mass Index - - documented in this encounter Plan of Treatment Upcoming Encounters Date Type Department Care Team (Late st Contact Info) Description 11/30/2024 9:30 AM CDT Appointment Department of Laboratory Medicine in [address] [phone] Helena Vidal APRN, C.N.P., M.S.N. [address] [place] [phone] 12/07/2024 9:30 AM CDT Appointment Department of Laboratory Medicine in [address] [phone] Helena Vidal APRN, C.N.P., M.S.N. [address] [place] [phone] 12/13/2024 8:00 AM CDT Appointment Department of Laboratory Medicine in [address] [phone] Helena Vidal APRN, C.NGeovany., M.S.N. [address] [place] [phone] 12/14/2024 10:00 AM CDT Office Visit Division of Hematology in [place], [place] [address] [place] [phone] Helena Vidal APRN, C.NGeovany., M.S.N. [address] [place] [phone] 12/15/2024 7:30 AM CDT Infusion Department of Oncology in [place], [place] [address] [place] [phone] Helena Vidal APRN, C.NGeovany., M.S.N. [address] [place] [phone] 12/21/2024 9:30 AM CDT Appointment Department of Laboratory Medicine in [address] [phone] Helena Vidal APRN, C.NGeovany., M.S.N. [address] [place] [phone] 12/28/2024 9:30 AM CDT Appointment Department of Laboratory Medicine in [address] [phone] Helena Vidal APRN, C.N.P., M.S.N. [address] [place] [phone] 12/31/2024 11:15 AM CDT Appointment Department of Radiology, [facility], in [place], [place] [address] [place] [phone] Helena Vidal APRN, C.NGeovany., M.S.N. [address] [place] [phone] 01/03/2025 8:00 AM CDT Appointment Department of Laboratory Medicine in [address] [phone] Helena Vidal APRN, C.N.P., M.S.N. [address] [place] [phone] 01/04/2025 10:00 AM CDT Office Visit Division of Hematology in [place], [place] [address] [place] [phone] Helena Vidal APRN, C.N.Lydia., M.S.N. [address] [place] [phone] 01/05/2025 8:00 AM CDT Infusion Department of Oncology in [place], [place] [address] [place] [phone] Helena Vidal APRN, C.N.P., M.S.N. [address] [place] [phone] 01/11/2025 9:30 AM CDT Appointment Department of Laboratory Medicine in [address] [phone] Helena Vidal APRN, C.N.P., M.S.N. [address] [place] [phone] 01/18/2025 9:30 AM CDT Appointment Department of Laboratory Medicine in [address] [phone] Helena Vidal APRN, C.NMike, M.S.N. [address] [place] [phone] 02/01/2025 9:30 AM CDT Appointment Department of Laboratory Medicine in [address] [phone] Helena Vidal APRN, C.NMike, M.S.N. [address] [place] [phone] 02/08/2025 9:30 AM CDT Appointment Department of Laboratory Medicine in [address] [phone] Helena Vidal APRN, C.NMike, M.S.N. [address] [place] [phone] 02/22/2025 9:30 AM CDT Appointment Department of Laboratory Medicine in [address] [phone] Helena Vidal APRN, C.NMike, M.S.N. [address] [place] [phone] 03/01/2025 9:30 AM CDT Appointment Department of Laboratory Medicine in [address] [phone] Helena Vidal APRN, C.N.Mallory, M.S.N. [address] [place] [phone] 03/15/2025 9:30 AM SHINGLES ROOFER Appointment Department of Laboratory Medicine in [address] [phone] Helena Vidal APRN, C.N.P., M.S.N. [address] [place] [phone] 03/22/2025 9:30 AM SHINGLES ROOFER Appointment Department of Laboratory Medicine in [address] [phone] Helena Vidal APRN, C.N.P., M.S.N. 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 Melissa Pharm.D. 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
--- OUTSIDE RECORDS SUMMARY | 2024-11-24 15:45 | XMS_ITS | Encounter Summary ---
Author Organization [facility] Address [address] [place] [address] Care Team Providers Care Sterile Technician Name Role Phone Elsewhere, Pcp Primary Care Provider Unavailabl e Reason for Visit * Reason Onset Date Comments hem new lymph chemo 11/2211/16/2024 Encounter Details Date Type Department Care Team (Latest Contact Info) Description 11/16/2024 Clinical Communication Division of Hematology in [place], [place] [address] [place] [address] Helena Vidal APRN, C.N.P., M.S.N. [address] [place] [phone] hem new lymph chemo 11/22 Social History Tobacco Use Types Packs/Day Years Used Date Smoking Tobacco: Former Cigarettes 1 25 0 11/12/1957 - 1976 Smokeless Tobacco: Never Alcohol Use Standard Drinks/Week Comments Not Currently 0 (1 standard drink = 0.6 oz pure alcohol) Stopped consuming alchohol in 1980 [facility] Utilities Answer Date Recorded In the past 12 months has [facility] electric, gas, oil, or water company threatened [...] your living situation today? I have a [facility] place to live 10/22/2024 Education Answer Date Recorded What is the highest level of school you have completed or the highest degree you have received? Associate degree: occupational, technical, or vocational program 10/10/2020 Sex and Gender Information Value Date Recorded Sex Assigned at Male 06/01/2018 2:30 PM POLE SHAVER Legal Sex Male 10:26 AM POLE SHAVER Gender Identity Male 06/01/2018 2:30 PM POLE SHAVER Sexual Orientation Straight 06/01/2018 2: 30 PM POLE SHAVER documented as of this encounter Plan of Treatment Upcoming Encounters Date Type Department Care Team (Late st Contact Info) Description 11/30/2024 9:30 AM CDT Appointment Department of Laboratory Medicine in [address] [phone] Helena Vidal APRN, C.N.P., M.S.N. [address] [place] [phone] 12/07/2024 9:30 AM CDT Appointment Department of Laboratory Medicine in [place] [address] Helena Vidal APRN, C.NGeovany., M.S.N. [address] [place] [phone] 12/13/2024 8:00 AM CDT Appointment Department of Laboratory Medicine in [address] [phone] Helena Vidal APRN, C.NGeovany., M.S.N. [address] [place] [phone] 12/14/2024 10:00 AM CDT Office Visit Division of Hematology in [address] [address] Helena Vidal APRN, C.NGeovany., M.S.N. [address] [place] [phone] 12/15/2024 7:30 AM CDT Infusion Department of Oncology in [place], [place] [address] [place] [phone] Helena Vidal APRN, C.N.P., M.S.N. [address] [place] [phone] 12/21/2024 9:30 AM CDT Appointment Department of Laboratory Medicine in [address] [phone] Helena Vidal APRN, C.NKwasiP., M.S.N. [address] [place] [phone] 12/28/2024 9:30 AM CDT Appointment Department of Laboratory Medicine in [address] [phone] Helena Vidal APRN, C.NMike, M.S.N. [address] [place] [phone] 12/31/2024 11:15 AM CDT Appointment Department of Radiology, [facility], in [address] [phone] Helena Vidal APRN, C.N.P., M.S.N. [address] [place] [phone] 01/03/2025 8:00 AM CDT Appointment Department of Laboratory Medicine in [address] [phone] Helena Vidal APRN, C.NMike, M.S.N. [address] [place] [phone] 01/04/2025 10:00 AM CDT Office Visit Division of Hematology in [address] [address] Helena Vidal APRN, C.NGeovany., M.S.N. [address] [place] [phone] 01/05/2025 8:00 AM CDT Infusion Department of Oncology in [address] [address] Helena Vidal APRN, C.NGeovany., M.S.N. [address] [place] [phone] 01/11/2025 9:30 AM CDT Appointment Department of Laboratory Medicine in [address] [address] Helena Vidal APRN, C.NGeovany., M.S.N. [address] [place] [phone] 01/18/2025 9:30 AM CDT Appointment Department of Laboratory Medicine in [address] [phone] Helena Vidal APRN, C.N.Lydia., M.S.N. [address] [place] [phone] 02/01/2025 9:30 AM CDT Appointment Department of Laboratory Medicine in [address] [address] Helena iVdal APRN, C.NGeovany., M.S.N. [address] [place] [phone] 02/08/2025 9:30 AM CDT Appointment Department of Laboratory Medicine in [address] [phone] Helena Vidal APRN, C.NGeovany., M.S.N. [address] [place] [phone] 02/22/2025 9:30 AM CDT Appointment Department of Laboratory Medicine in [address] [address] Helena Vidal APRN, C.N.P., M.S.N. [address] [place] [phone] 03/01/2025 9:30 AM CDT Appointment Department of Laboratory Medicine in [address] [phone] Helena Vidal APRN, C.N.P., M.S.N. [address] [place] [phone] 03/15/2025 9:30 AM POLE SHAVER Appointment Department of Laboratory Medicine in [address] [phone] Helena Vidal APRN, C.N.P., M.S.N. [address] [place] [phone] 03/22/2025 9:30 AM POLE SHAVER Appointment Department of Laboratory Medicine in [address] [phone] Helena Vidal APRN, C.N.P., M.S.N. [address] [place] [phone] documented as of this encounter Visit Diagnoses Not on filedocumented in this encounter Additional Health Concerns Infection Onset Date Last Indicated Resolved Time Protective Environment 11/16/2024 11/16/2024 documented as of this encounter Care Teams Sterile Technician Relationship Specialty Start Date End Date Elsewhere, Pcp PCP - General Internal Medicine 10/22/24 documented as of this encounter
--- OUTSIDE RECORDS SUMMARY | 2024-11-24 15:45 | XMS_ITS | Encounter Summary ---
Author Organization [facility] Address [address] [place] [address] Care Team Providers Care Lock And Dam Repairer Name Role Phone Elsewhere, Pcp Primary Care Provider Unavailabl e Encounter Details Date Type Department Care Team (Late st Contact Info) Description 11/23/2024 Clinical Communication Division of Hematology in [place], [place] [address] [place] [address] Kourtney Elizalde M.D. [address] [place] [address] Social History Tobacco Use Types Packs/Day Years Used Date Smoking Tobacco: Former Cigarettes 1 25 0 11/12/1957 - 1976 Smokeless Tobacco: Never Alcohol Use Standard Drinks/Week Comments Not Currently 0 (1 standard drink = 0.6 oz pure alcohol) Stopped consuming alchohol in 1980 [facility] Utilities Answer Date Recorded In the past 12 months has [facility] [employer], oil, or water [employer] threatened to shut off services in your [...] your living situation today? I have a [facility] place to live 10/22/2024 Education Answer Date Recorded What is the highest level of school you have completed or the highest degree you have received? Associate degree: occupational, technical, or vocational program 10/10/2020 Sex and Gender Information Value Date Recorded Sex Assigned at Male 06/01/2018 2:30 PM WIRE TAPER Legal Sex Male 10:26 AM WIRE TAPER Gender Identity Male 06/01/2018 2:30 PM WIRE TAPER Sexual Orientation Straight 06/01/2018 2: 30 PM WIRE TAPER documented as of this encounter Plan of Treatment Upcoming Encounters Date Type Department Care Team (Late st Contact Info) Description 11/30/2024 9:30 AM CDT Appointment Department of Laboratory Medicine in [address] [phone] Helena Vidal APRN C.N.P., M.S.N. [address] [place] [phone] 12/07/2024 9:30 AM CDT Appointment Department of Laboratory Medicine in [address] [address] Helena Vidal APRN C.N.P., M.S.N. [address] [place] [phone] 12/13/2024 8:00 AM CDT Appointment Department of Laboratory Medicine in [address] [phone] Helena Vidal APRN, C.NMike, M.S.N. [address] [place] [phone] 12/14/2024 10:00 AM CDT Office Visit Division of Hematology in [place], [place] [address] [place] [phone] Helena Vidal APRN, C.NMike, M.S.N. [address] [place] [phone] 12/15/2024 7:30 AM CDT Infusion Department of Oncology in [place], [place] [address] [place] [phone] Helena Vidal APRN, C.NGeovany., M.S.N. [address] [place] [phone] 12/21/2024 9:30 AM CDT Appointment Department of Laboratory Medicine in [address] [phone] Helena Vidal APRN, C.N.PKwasi, M.S.N. [address] [place] [phone] 12/28/2024 9:30 AM CDT Appointment Department of Laboratory Medicine in [address] [phone] Helena Vidal APRN, C.N.P., M.S.N. [address] [place] [phone] 12/31/2024 11:15 AM CDT Appointment Department of Radiology, [facility], in [place], [place] [address] [place] [phone] Helena Vidal APRN, C.NMike, M.S.N. [address] [place] [phone] 01/03/2025 8:00 AM CDT Appointment Department of Laboratory Medicine in [address] [phone] Helena Vidal APRN, C.N.P., M.S.N. [address] [place] [phone] 01/04/2025 10:00 AM CDT Office Visit Division of Hematology in [place], [place] [address] [place] [phone] Helena Vidal APRN, C.NGeovany., M.S.N. [address] [place] [phone] 01/05/2025 8:00 AM CDT Infusion Department of Oncology in [place], [place] [address] [place] [phone] Helena Vidal APRN, C.NMike, M.S.N. [address] [place] [phone] 01/11/2025 9:30 AM CDT Appointment Department of Laboratory Medicine in [address] [phone] Helena Vidal APRN, C.N.Mallory, M.S.N. [address] [place] [phone] 01/18/2025 9:30 AM CDT Appointment Department of Laboratory Medicine in [address] [phone] Helena Vidal APRN, C.N.P., M.S.N. [address] [place] [phone] 02/01/2025 9:30 AM CDT Appointment Department of Laboratory Medicine in [address] [phone] Helena Vidal APRN, C.N.P., M.S.N. [address] [place] [phone] 02/08/2025 9:30 AM CDT Appointment Department of Laboratory Medicine in [address] [phone] Helena Vidal APRN, C.N.P., M.S.N. [address] [place] [phone] 02/22/2025 9:30 AM CDT Appointment Department of Laboratory Medicine in [address] [phone] Helena Vidal APRN, C.N.P., M.S.N. [address] [place] [phone] 03/01/2025 9:30 AM CDT Appointment Department of Laboratory Medicine in [address] [phone] Helena Vidal APRN, C.N.P., M.S.N. [address] [place] [phone] 03/15/2025 9:30 AM WIRE TAPER Appointment Department of Laboratory Medicine in [address] [phone] Helena Vidal APRN, C.N.P., M.S.N. [address] [place] [phone] 03/22/2025 9:30 AM WIRE TAPER Appointment Department of Laboratory Medicine in [address] [phone] Helena Vidal APRN, C.NGeovany., M.S.N. [address] [place] [phone] documented as of this encounter Visit Diagnoses Not on filedocumented in this encounter Additional Health Concerns Infection Onset Date Last Indicated Resolved Time Protective Environment 11/16/2024 11/16/2024 documented as of this encounter Care Teams Lock And Dam Repairer Relationship Specialty Start Date End Date Elsewhere, Pcp PCP - General Internal Medicine 10/22/24 documented as of this encounter
--- OUTSIDE RECORDS SUMMARY | 2024-11-24 15:45 | XMS_ITS | Encounter Summary ---
Author Organization [facility] Address [address] [place] [address] Care Team Providers Care Solar Photovoltaic Systems Engineer Name Role Phone Elsewhere, Pcp Primary Care Provider Unavailabl e Reason for Visit * Reason Onset Date Comments Follow-up Orders 11/16/2024 Encounter Details Date Type Department Care Team (Latest Contact Info) Description 11/16/2024 Clinical Communication Division of Hematology in [place], [place] [address] [place] [address] Kourtney Elizalde M.D. [address] [place] [phone] Follow-up Orders Social History Tobacco Use Types Packs/Day Years Used Date Smoking Tobacco: Former Cigarettes 1 25 0 11/12/1957 - 1976 Smokeless Tobacco: Never Alcohol Use Standard Drinks/Week Comments Not Currently 0 (1 standard drink = 0.6 oz pure alcohol) Stopped consuming alchohol in 1980 [facility] Utilities Answer Date Recorded In the past 12 months has [facility] [employer], gas, oil, or water [employer] threatened to shut off services in your [...] your living situation today? I have a [facility] place to live 10/22/2024 Education Answer Date Recorded What is the highest level of school you have completed or the highest degree you have received? Associate degree: occupational, technical, or vocational program 10/10/2020 Sex and Gender Information Value Date Recorded Sex Assigned at Male 06/01/2018 2:30 PM CONTROL OPERATOR FLOW COAT Legal Sex Male 10:26 AM CONTROL OPERATOR FLOW COAT Gender Identity Male 06/01/2018 2:30 PM CONTROL OPERATOR FLOW COAT Sexual Orientation Straight 06/01/2018 2: 30 PM CONTROL OPERATOR FLOW COAT documented as of this encounter Plan of Treatment Upcoming Encounters Date Type Department Care Team (Late st Contact Info) Description 11/30/2024 9:30 AM CDT Appointment Department of Laboratory Medicine in [address] [phone] Helena Vidal APRN, C.N.P., M.S.N. [address] [place] [phone] 12/07/2024 9:30 AM CDT Appointment Department of Laboratory Medicine in [address] [phone] Helena Vidal APRN, C.NGeovany., M.S.N. [address] [place] [phone] 12/13/2024 8:00 AM CDT Appointment Department of Laboratory Medicine in [address] [phone] Helena Vidal APRN, C.NGeovany., M.S.N. [address] [place] [phone] 12/14/2024 10:00 AM CDT Office Visit Division of Hematology in [place], [place] [address] [place] [phone] Helena Vidal APRN, C.NGeovany., M.S.N. [address] [place] [phone] 12/15/2024 7:30 AM CDT Infusion Department of Oncology in [place], [place] [address] [place] [phone] Helena Vidal APRN, C.N.P., M.S.N. [address] [place] [phone] 12/21/2024 9:30 AM CDT Appointment Department of Laboratory Medicine in [address] [phone] Helena Vidal APRN, C.N.P., M.S.N. [address] [place] [phone] 12/28/2024 9:30 AM CDT Appointment Department of Laboratory Medicine in [address] [phone] Helena Vidal APRN, C.NKwasiP., M.S.N. [address] [place] [phone] 12/31/2024 11:15 AM CDT Appointment Department of Radiology, [facility], in [place], [place] [address] [place] [phone] Helena Vidal APRN, C.NGeovany., M.S.N. [address] [place] [phone] 01/03/2025 8:00 AM CDT Appointment Department of Laboratory Medicine in [address] [phone] Helena Vidal APRN, C.NGeovany., M.S.N. [address] [place] [phone] 01/04/2025 10:00 AM CDT Office Visit Division of Hematology in [address] [phone] Helena Vidal APRN, C.NGeovany., M.S.N. [address] [place] [phone] 01/05/2025 8:00 AM CDT Infusion Department of Oncology in [place], [place] [address] [place] [phone] Helena Vidal APRN, C.N.P., M.S.N. [address] [place] [phone] 01/11/2025 9:30 AM CDT Appointment Department of Laboratory Medicine in [address] [phone] Helena Vidal APRN, C.NGeovany., M.S.N. [address] [place] [phone] 01/18/2025 9:30 AM CDT Appointment Department of Laboratory Medicine in [address] [phone] Helena Vidal APRN, C.NGeovany., M.S.N. [address] [place] [phone] 02/01/2025 9:30 AM CDT Appointment Department of Laboratory Medicine in [address] [phone] Helena Vidal APRN, C.NGeovany., M.S.N. [address] [place] [phone] 02/08/2025 9:30 AM CDT Appointment Department of Laboratory Medicine in [address] [phone] Helena Vidal APRN, C.NGeovany., M.S.N. [address] [place] [phone] 02/22/2025 9:30 AM CDT Appointment Department of Laboratory Medicine in [address] [phone] Helena Vidal APRN, C.NGeovany., M.S.N. [address] [place] [phone] 03/01/2025 9:30 AM CDT Appointment Department of Laboratory Medicine in [address] [phone] Helena Vidal APRN, C.NMike, M.S.N. [address] [place] [phone] 03/15/2025 9:30 AM CONTROL OPERATOR FLOW COAT Appointment Department of Laboratory Medicine in [address] [phone] Helena Vidal APRN, C.N.P., M.S.N. [address] [place] [phone] 03/22/2025 9:30 AM CONTROL OPERATOR FLOW COAT Appointment Department of Laboratory Medicine in [address] [phone] Helena Vidal APRN, C.NGeovany., M.S.N. [address] [place] [phone] documented as of this encounter Visit Diagnoses Not on filedocumented in this encounter Additional Health Concerns Infection Onset Date Last Indicated Resolved Time Protective Environment 11/16/2024 11/16/2024 documented as of this encounter Care Teams Solar Photovoltaic Systems Engineer Relationship Specialty Start Date End Date Elsewhere, Pcp PCP - General Internal Medicine 10/22/24 documented as of this encounter
--- OUTSIDE RECORDS SUMMARY | 2024-11-24 15:45 | XMS_ITS | Encounter Summary ---
Author Organization [facility] Address [address] [place] [id number] Care Team Providers Care Client Technologies Specialist Name Role Phone Elsewhere, Pcp Primary Care Provider Unavailabl e Reason for Visit * Reason Onset Date Comments Difficulty Urinating 11/24/2024 Encounter Details Date Type Department Care Team (Latest Contact Info) Description 11/24/2024 Clinical Communication Division of Hematology in [place], [place] [address] [place] [phone] Kourtney Elizalde M.D. [address] [place] [phone] Difficulty Urinating Social History Tobacco Use Types Packs/Day Years Used Date Smoking Tobacco: Former Cigarettes 1 25 0 11/12/1957 - 1976 Smokeless Tobacco: Never Alcohol Use Standard Drinks/Week Comments Not Currently 0 (1 standard drink = 0.6 oz pure alcohol) Stopped consuming alchohol in 1980 [facility] Utilities Answer Date Recorded In the past 12 months has [facility] Hand[employer], gas, oil, or water [employer] threatened to shut off services in your [...] your living situation today? [facility] 10/22/2024 Education Answer Date Recorded What is the highest level of school you have completed or the highest degree you have received? Associate degree: occupational, technical, or vocational program 10/10/2020 Sex and Gender Information Value Date Recorded Sex Assigned at Male 06/01/2018 2:30 PM SUPPLY ANALYST Legal Sex Male 10:26 AM SUPPLY ANALYST Gender Identity Male 06/01/2018 2:30 PM SUPPLY ANALYST Sexual Orientation Straight 06/01/2018 2: 30 PM SUPPLY ANALYST documented as of this encounter Miscellaneous Notes * Telephone Encounter - Shalonda Mendoza, RKwasiN. - 11/24/2024 2:02 PM CDT SUBJECTIVE CHIEF COMPLAINT / REASON FOR CALL Difficulty Urinating Information Discussed Contacted patient to obtain more information. Since the initial phone call, patient has voided two times. He estimates 1/4 cup on one occurrence and 1/3-1/2 cup another time. He denies blood and states the urine is a darker yellow. He states he has been drinking. He also states he gained about 8 pounds since yesterday. Advised he be seen today. He states he just left the clinic from getting a shot. Advised he contact his PCP today to try to obtain an appointment. Informed him this could be prostatitis, and he would probably have a bladder scan and potentially be given antibiotics. He mentioned doing this tomorrow, but I firmly told him this should not wait and he should be seen today. He verbalized understanding. PLAN Disposition/Recommendation: recommended continue engagement in self-management activities Information/Education: patient/caller able to teach back Caller agreeable to plan of care: yes The following references were used: nursing clinical judgement documented in this encounter Plan of Treatment Upcoming Encounters Date Type Department Care Team (Late st Contact Info) Description 11/30/2024 9:30 AM CDT Appointment Department of Laboratory Medicine in [address] [phone] Helena Vidal APRN, Jennifer.N.P., M.S.N. [address] [place] [phone] 12/07/2024 9:30 AM CDT Appointment Department of Laboratory Medicine in [address] [phone] Helena Vidal APRN, C.N.P., M.S.N. [address] [place] [phone] 12/13/2024 8:00 AM CDT Appointment Department of Laboratory Medicine in [address] [phone] Helena Vidal APRN, C.N.P., M.S.N. [address] [place] [phone] 12/14/2024 10:00 AM CDT Office Visit Division of Hematology in [place], [place] [address] [place] [phone] Helena Vidal APRN, C.NGeovany., M.S.N. [address] [place] [phone] 12/15/2024 7:30 AM CDT Infusion Department of Oncology in [place], [place] [address] [place] [phone] Helena Vidal APRN, C.NGeovany., M.S.N. [address] [place] [phone] 12/21/2024 9:30 AM CDT Appointment Department of Laboratory Medicine in [address] [phone] Helena Vidal APRN, C.N.P., M.S.N. [address] [place] [phone] 12/28/2024 9:30 AM CDT Appointment Department of Laboratory Medicine in [address] [phone] Helena Vidal APRN, C.NMike, M.S.N. [address] [place] [phone] 12/31/2024 11:15 AM CDT Appointment Department of Radiology, [facility], in [place], [place] [address] [place] [phone] Helena Vidal APRN, C.N.P., M.S.N. [address] [place] [phone] 01/03/2025 8:00 AM CDT Appointment Department of Laboratory Medicine in [address] [phone] Helena Vidal APRN, C.NGeovany., M.S.N. [address] [place] [phone] 01/04/2025 10:00 AM CDT Office Visit Division of Hematology in [place], [place] [address] [place] [phone] Helena Vidal APRN, C.NGeovany., M.S.N. [address] [place] [phone] 01/05/2025 8:00 AM CDT Infusion Department of Oncology in [place], [place] [address] [place] [phone] Helena Vidal APRN, C.NGeovany., M.S.N. [address] [place] [phone] 01/11/2025 9:30 AM CDT Appointment Department of Laboratory Medicine in [address] [phone] Helena Vidal APRN, C.NMike, M.S.N. [address] [place] [phone] 01/18/2025 9:30 AM CDT Appointment Department of Laboratory Medicine in [address] [phone] Helena Vidal APRN, C.N.P., M.S.N. [address] [place] [phone] 02/01/2025 9:30 AM CDT Appointment Department of Laboratory Medicine in [address] [phone] Helena Vidal APRN, C.NGeovany., M.S.N. [address] [place] [phone] 02/08/2025 9:30 AM CDT Appointment Department of Laboratory Medicine in [address] [phone] Helena Vidal APRN, C.NGeovany., M.S.N. [address] [place] [phone] 02/22/2025 9:30 AM CDT Appointment Department of Laboratory Medicine in [address] [phone] Helena Vidal APRN, C.N.P., M.S.N. [address] [place] [phone] 03/01/2025 9:30 AM CDT Appointment Department of Laboratory Medicine in [address] [phone] Helena Vidal APRN, C.NGeovany., M.S.N. [address] [place] [phone] 03/15/2025 9:30 AM SUPPLY ANALYST Appointment Department of Laboratory Medicine in [address] [phone] Helena Vidal APRN, C.NGeovany., M.S.N. [address] [place] [phone] 03/22/2025 9:30 AM SUPPLY ANALYST Appointment Department of Laboratory Medicine in [address] [place] [phone] Helena Vidal APRN, C.N.P., M.S.N. [address] [place] [phone] documented as of this encounter Visit Diagnoses Not on filedocumented in this encounter Additional Health Concerns Infection Onset Date Last Indicated Resolved Time Protective Environment 11/16/2024 11/16/2024 documented as of this encounter Care Teams Client Technologies Specialist Relationship Specialty Start Date End Date Elsewhere, Pcp PCP - General Internal Medicine 10/22/24 documented as of this encounter
--- OUTSIDE RECORDS SUMMARY | 2024-11-24 15:45 | XMS_ITS | Encounter Summary ---
Author Organization [facility] Address [address] [place] [address] Care Team Providers Care Bank Vault Clerk Name Role Phone Elsewhere, Pcp Primary Care Provider Unavailabl e Reason for Visit * Reason Onset Date Comments Chemotherapy 11/18/2024 Encounter Details Date Type Department Care Team (Late st Contact Info) Description 11/18/2024 Clinical Communication Division of Hematology in [place], [place] [address] [place] [phone] Jose Fang M.B.B.S. [address] [place] [phone] Chemotherapy Social History Tobacco Use Types Packs/Day Years Used Date Smoking Tobacco: Former Cigarettes 1 25 0 11/12/1957 - 1976 Smokeless Tobacco: Never Alcohol Use Standard Drinks/Week Comments Not Currently 0 (1 standard drink = 0.6 oz pure alcohol) Stopped consuming alchohol in 1980 [facility] Utilities Answer Date Recorded In the past 12 months has [facility] [employer], gas, oil, or water [employer] threatened to shut off services in your [...] your living situation today? I have a [facility] place to live 10/22/2024 Education Answer Date Recorded What is the highest level of school you have completed or the highest degree you have received? Associate degree: occupational, technical, or vocational program 10/10/2020 Sex and Gender Information Value Date Recorded Sex Assigned at Male 06/01/2018 2:30 PM MARINE EQUIPMENT RESEARCH ENGINEER Legal Sex Male 10:26 AM MARINE EQUIPMENT RESEARCH ENGINEER Gender Identity Male 06/01/2018 2:30 PM MARINE EQUIPMENT RESEARCH ENGINEER Sexual Orientation Straight 06/01/2018 2: 30 PM MARINE EQUIPMENT RESEARCH ENGINEER documented as of this encounter Plan of Treatment Upcoming Encounters Date Type Department Care Team (Late st Contact Info) Description 11/30/2024 9:30 AM CDT Appointment Department of Laboratory Medicine in [address] [phone] Helena Vidal APRN, C.N.P., M.S.N. [address] [place] [phone] 12/07/2024 9:30 AM CDT Appointment Department of Laboratory Medicine in [address] [phone] Helena Vidal APRN, C.NKwasiP., M.S.N. [address] [place] [phone] 12/13/2024 8:00 AM CDT Appointment Department of Laboratory Medicine in [address] [phone] Helena Vidal APRN, C.N.P., M.S.N. [address] [place] [phone] 12/14/2024 10:00 AM CDT Office Visit Division of Hematology in [place], [place] [address] [place] [phone] Helena Vidal APRN, C.N.Lydia., M.S.N. [address] [place] [phone] 12/15/2024 7:30 AM CDT Infusion Department of Oncology in [place], [place] [address] [place] [phone] Helena Vidal APRN, C.N.P., M.S.N. [address] [place] [phone] 12/21/2024 9:30 AM CDT Appointment Department of Laboratory Medicine in [address] [phone] Helena Vidal APRN, C.N.P., M.S.N. [address] [place] [phone] 12/28/2024 9:30 AM CDT Appointment Department of Laboratory Medicine in [address] [phone] Helena Vidal APRN, C.N.P., M.S.N. [address] [place] [phone] 12/31/2024 11:15 AM CDT Appointment Department of Radiology, [facility], in [place], [place] [address] [place] [phone] Helena Vidal APRN, C.N.P., M.S.N. [address] [place] [phone] 01/03/2025 8:00 AM CDT Appointment Department of Laboratory Medicine in [address] [phone] Helena Vidal APRN, C.N.Lydia., M.S.N. [address] [place] [phone] 01/04/2025 10:00 AM CDT Office Visit Division of Hematology in [place], [place] [address] [place] [phone] Helena Vidal APRN, C.N.P., M.S.N. [address] [place] [phone] 01/05/2025 8:00 AM CDT Infusion Department of Oncology in [place], [place] [address] [place] [phone] Helena Vidal APRN, C.N.P., M.S.N. [address] [place] [phone] 01/11/2025 9:30 AM CDT Appointment Department of Laboratory Medicine in [address] [phone] Helena Vidal APRN, C.NGeovany., M.S.N. [address] [place] [phone] 01/18/2025 9:30 AM CDT Appointment Department of Laboratory Medicine in [address] [phone] Helena Vidal APRN, C.NMike, M.S.N. [address] [place] [phone] 02/01/2025 9:30 AM CDT Appointment Department of Laboratory Medicine in [address] [phone] Helena Vidal APRN, C.NGeovany., M.S.N. [address] [place] [phone] 02/08/2025 9:30 AM CDT Appointment Department of Laboratory Medicine in [address] [phone] Helena Vidal APRN, C.NGeovany., M.S.N. [address] [place] [phone] 02/22/2025 9:30 AM CDT Appointment Department of Laboratory Medicine in [address] [phone] Helena Vidal APRN, C.N.Lydia., M.S.N. [address] [place] [phone] 03/01/2025 9:30 AM CDT Appointment Department of Laboratory Medicine in [address] [phone] Helena Vidal APRN, C.N.P., M.S.N. [address] [place] [phone] 03/15/2025 9:30 AM MARINE EQUIPMENT RESEARCH ENGINEER Appointment Department of Laboratory Medicine in [address] [phone] Helena Vidal APRN, C.N.P., M.S.N. [address] [place] [phone] 03/22/2025 9:30 AM MARINE EQUIPMENT RESEARCH ENGINEER Appointment Department of Laboratory Medicine in [address] [phone] Helena Vidal APRN, C.NGeovany., M.S.N. [address] [place] [phone] documented as of this encounter Visit Diagnoses Not on filedocumented in this encounter Additional Health Concerns Infection Onset Date Last Indicated Resolved Time Protective Environment 11/16/2024 11/16/2024 documented as of this encounter Care Teams Bank Vault Clerk Relationship Specialty Start Date End Date Elsewhere, Pcp PCP - General Internal Medicine 10/22/24 documented as of this encounter
--- OUTSIDE RECORDS SUMMARY | 2024-11-24 15:46 | XMS_ITS | Clinical Summary ---
Author Organization [facility] Address [address] [place] [id number] Care Team Providers Care Turbine Room Attendant Name Role Phone Elsewhere, Pcp Primary Care Provider Unavailabl e Source Comments Patient records contain information from all sites at [facility]. For routine questions regarding patient records, call [phone] during business hours, M-F 8:00 AM - 5:00 PM Central Time. Record requests for emergency care only can be directed to [phone] at any time.[facility] Allergies Active Allergy Reactions Criticality Noted Date Comments Pollen Extracts Other (see comments) 12/02/2018 Itchy and watery eyes, runny nose Medications amoxicillin (AMOXIL) 500 mg capsule TAKE 4 CAPSULES (2,000 MG) BY MOUTH ONCE NEEDED 1-2 HRS BEFORE EACH DENTAL APPT FOR 1 YEAR AFTER TJR 07/07/19 24 Active LORazepam (Ativan) 0.5 mg tablet Take 1 tablet by mouth as needed. 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 Days 1 through 5 of each cycle. 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 Take on Days 1 through 10 for tumor lysis syndrome prophylaxis 10 tablet 5 3:30 PM CDT 11/23/19 25 025 Active traMADoL (ULTRAM) 50 mg tabletIndicati ons:Acute Pain Exception Take 1 tablet (50 mg total) by mouth every 6 (six) hours as needed for pain Indications: Acute Pain Exception. 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 11/22/2024 2:00 PM CDT Education Division of Hematology in [place], [place] [address] [place] [phone] Helena Vidal APRN, C.N.PKwasi, M.S.N. Shanthi Brewer, R.N. 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 Chemotherapy 11/16/2024 Clinical Communication Division of Hematology in [place], [place] [address] [place] [phone] Helena Vidal APRN, C.N.P., M.S.N. hem new lymph chemo 11/2211/16/2024 Clinical Communication Division of Hematology in [place], [place] [address] [place] [phone] Kourtney Elizalde M.D. Follow-up Orders 11/15/2024 1:00 PM CDT Office Visit Division of Hematology in [place], [place] [address] [place] [phone] Helena Vidal APRN, C.N.P., M.S.N. 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) Discharge Disposition: Home or Self Care 10/22/2024 10:15 AM CDT Clinical Communication Virtual Review in [place], [place] [address] [place] [address] Pre-visit Intake from Last 3 Months Family History Medical History Relation Name Comments Coronary artery disease Brother 1 Quentin Prostate cancer Brother 1 Quentin Sleep apnea Brother 1 Quentin Prostate cancer Brother 2 [place] Coronary artery disease Brother 3 Quentin Prostate cancer Brother 3 Quentin Sleep apnea Brother 3 Quentin Prostate cancer Brother 4 Thomas Coronary artery disease Father 1 Byrl Prostate cancer Father 1 Byrl Sleep apnea Father 1 Byrl Coronary artery disease Father 2 Byrl Prostate cancer Father 2 Byrl Sleep apnea Father 2 Byrl Relation Name Status Comments Brother 1 Quentin Brother 2 [place] Brother 3 Quentin Alive Brother 4 Thomas Alive Father 1 Byrl Father 2 Byrl Social History Tobacco Use Types Packs/Day Years Used Date Smoking Tobacco: Former Cigarettes 1 25 0 11/12/1957 - 1976 Smokeless Tobacco: Never Alcohol Use Standard Drinks/Week Comments Not Currently 0 (1 standard drink = 0.6 oz pure alcohol) Stopped consuming alchohol in 1980 [facility] Utilities Answer Date Recorded In the past 12 months has [email or web address], gas, oil, or water [employer] threatened to shut off services in your [...] your living situation today? I have a [facility] place to live 10/22/2024 Education Answer Date Recorded What is the highest level of school you have completed or the highest degree you have received? Associate degree: occupational, technical, or vocational program 10/10/2020 Sex and Gender Information Value Date Recorded Sex Assigned at Male 06/01/2018 2:30 PM DIGITAL MARKETING PROJECT MANAGER Legal Sex Male 10:26 AM DIGITAL MARKETING PROJECT MANAGER Gender Identity Male 06/01/2018 2:30 PM DIGITAL MARKETING PROJECT MANAGER Sexual Orientation Straight 06/01/2018 2: 30 PM DIGITAL MARKETING PROJECT MANAGER Last Filed Vital Signs Vital Sign Reading Time Taken Comments Blood Pressure 166/52 11/24/2024 1:26 PM CDT Pulse 64 11/24/2024 1:26 PM CDT Temperature 36.2 C (97.2 F) 11/24/2024 1:26 PM CDT Respiratory Rate 18 11/24/2024 1:26 PM CDT Oxygen Saturation 95% 11/24/2024 1:26 PM CDT Inhaled Oxygen Concentration - - Weight 80.2 kg (176 lb 11.2 oz) 11/23/2024 7:46 AM CDT Height 169 cm (5' 6.54) 11/22/2024 10: 50 AM CDT Body Mass Index 28.06 11/22/2024 10:50 AM CDT Plan of Treatment Upcoming Encounters Date Type Department Care Team (Late st Contact Info) Description 11/30/2024 9:30 AM CDT Appointment Department of Laboratory Medicine in [address] [phone] Helena Vidal APRN, C.N.P., M.S.N. [address] [place] [phone] 12/07/2024 9:30 AM CDT Appointment Department of Laboratory Medicine in [address] [phone] Helena Vidal APRN, Jennifer.N.P., M.S.N. [address] [place] [phone] 12/13/2024 8:00 AM CDT Appointment Department of Laboratory Medicine in [address] [phone] Helena Vidal APRN, C.N.P., M.S.N. [address] [place] [phone] 12/14/2024 10:00 AM CDT Office Visit Division of Hematology in [place], [place] [address] [place] [phone] Helena Vidal APRN, C.N.P., M.S.N. [address] [place] [phone] 12/15/2024 7:30 AM CDT Infusion Department of Oncology in [place], [place] [address] [place] [phone] Helena Vidal APRN, C.N.P., M.S.N. [address] [place] [phone] 12/21/2024 9:30 AM CDT Appointment Department of Laboratory Medicine in [address] [phone] Helena Vidal APRN, C.N.Lydia., M.S.N. [address] [place] [phone] 12/28/2024 9:30 AM CDT Appointment Department of Laboratory Medicine in [address] [phone] Helena Vidal APRN, C.NGeovany., M.S.N. [address] [place] [phone] 12/31/2024 11:15 AM CDT Appointment Department of Radiology, [facility], in [place], [place] [address] [place] [phone] Helena Vidal APRN, C.N.P., M.S.N. [address] [place] [phone] 01/03/2025 8:00 AM CDT Appointment Department of Laboratory Medicine in [address] [phone] Helena Vidal APRN, C.N.P., M.S.N. [address] [place] [phone] 01/04/2025 10:00 AM CDT Office Visit Division of Hematology in [place], [place] [address] [place] [phone] Helena Vidal APRN, C.NGeovany., M.S.N. [address] [place] [phone] 01/05/2025 8:00 AM CDT Infusion Department of Oncology in [place], [place] [address] [place] [phone] Helena Vidal APRN, C.N.Lydia., M.S.N. [address] [place] [phone] 01/11/2025 9:30 AM CDT Appointment Department of Laboratory Medicine in [address] [phone] Helena Vidal APRN, C.NGeovany., M.S.N. [address] [place] [phone] 01/18/2025 9:30 AM CDT Appointment Department of Laboratory Medicine in [address] [phone] Helena Vidal APRN, C.N.P., M.S.N. [address] [place] [phone] 02/01/2025 9:30 AM CDT Appointment Department of Laboratory Medicine in [address] [phone] Helena Vidal APRN, C.N.P., M.S.N. [address] [place] [phone] 02/08/2025 9:30 AM CDT Appointment Department of Laboratory Medicine in [address] [phone] Helena Vidal APRN, C.N.Lydia., M.S.N. [address] [place] [phone] 02/22/2025 9:30 AM CDT Appointment Department of Laboratory Medicine in [address] [phone] Helena Vidal APRN, C.N.Lydia., M.S.N. [address] [place] [phone] 03/01/2025 9:30 AM CDT Appointment Department of Laboratory Medicine in [address] [phone] Helena Vidal APRN, C.N.Lydia., M.S.N. [address] [place] [phone] 03/15/2025 9:30 AM DIGITAL MARKETING PROJECT MANAGER Appointment Department of Laboratory Medicine in [address] [phone] Helena Vidal APRN, C.N.P., M.S.N. [address] [place] [phone] 03/22/2025 9:30 AM DIGITAL MARKETING PROJECT MANAGER Appointment Department of Laboratory Medicine in [address] [phone] Helena Vidal APRN, C.N.P., M.S.N. [address] [place] [phone] Health Maintenance Due Date Last Done Comments Zoster Vaccines (1 of 2) 1961 Pneumococcal vaccine (50+ years) (2 of 2 - PCV) 04/12/2009 04/12/2008 DTaP,Tdap,and Td Vaccines (1 - Tdap) 06/27/2017 06/26/2017, 01/08/2005 RSV vaccine - (32-36 weeks) or 60+ years (1 - 1-dose 75+ series) 2017 COVID-19 Vaccine ( season) 2024 05/13/2022, 11/30/2021, 04/03/2021, Additional history exists Depression Screening (Annual PHQ-2) 05/12/2024 Influenza Vaccine (#1) 2025 04/18/2008 Office Visit for Blood Pressure Check / Re-check 02/24/2025 11/24/2024 Glucose Test for Med Monitoring 11/22/2025 11/22/2024, 07/21/2023, 12/19/2022, Additional history exists Hepatitis B Screening Discontinued 10/04/2015 Colonoscopy Discontinued 03/07/2022, 05/2010 (Performed elsewhere) Colorectal Cancer Surveillance Discontinued Fall Risk Screen (Annual) Completed 11/08/2024 CT Colonography Discontinued Cologuard Discontinued HPV Vaccines Aged Out No longer eligi ble based on patient's age to complete this topic IPV Vaccines Aged Out No longer eligi ble based on patient's age to complete this topic Medical Devices Implanted Type [facility] Account Manager Device Identifier Shelf Expiration Date Model / Serial / Lot Screws Implanted: (Quantity not on file) Hardware e.g. pins/screws/ rods Left: Leg Description:Body Location - LowExtrm R. Device Status Text - Hardware. Hip Scrw Emp Acet 6.5x25 - [id number] Implanted:Qty : 1 on 12/19/2022 by Audi Claudio M.D. at [facility] Hardware e.g. pins/screws/ rods Left: Hip [employer] 10/09/2028 940-00-025 / / [id number] Hip Scrw Emp Acet 6.5x25 - [id number] Implanted:Qty : 1 on 12/19/2022 by Audi Claudio M.D. at [facility] Hardware e.g. pins/screws/ rods Left: Hip [employer] 10/09/2028 940-00-025 / / [id number] Hip Shll Acet Emp Chl Sz 56h - [id number] Implanted:Qty : 1 on 12/19/2022 by Audi Claudio M.D. at [facility] Hip Implant Left: Hip [employer] 09/20/2028 940-02-56H / / [id number] Lnr Emp Std Sz 40h - [id number] Implanted:Qty : 1 on 12/19/2022 by Audi Claudio M.D. at [facility] Hip Implant Left: Hip [employer] 11/20/2027 941-01-40H / / [id number] Hip Stem Taperfill Sz 10 - [id number] Implanted:Qty : 1 on 12/19/2022 by Audi Claudio M.D. at [facility] Hip Implant Left: Hip [employer] 10/21/2028 425-97-010 / / [id number] Hip Head Delta Cer 40mm +4mm - [id number] Implanted:Qty : 1 on 12/19/2022 by Audi Claudio M.D. 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) NM CARDIAC BLOOD POOL MUGA AT REST RAD - Routine (most inpatients and all outpatients) 11/18/2024 9:42 AM CDT 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..] Sites (HCC) CBC WITH DIFFERENTIAL, B Routine 10/26/2024 8:21 AM CDT 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) CALCIUM, TOT, S/P Routine 10/26/2024 8:21 AM CDT 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) BILIRUBIN, TOT, S/P Routine 10/26/2024 8:21 AM CDT 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) ASPARTATE AMINOTRANSFERASE (AST), S/P Routine 10/26/2024 8:21 AM CDT 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 P., M.S.N. LAB MICROBIOLOGY - BLOOD ORDERABLES Final Result [facility] [address] [place] [address] [facility] [address] [place] [address] * HBc Total Ab Scrn, Serum (11/22/2024 9:10 AM CDT) [facility] HBc Total Ab Scrn, S Negative Negative 11/22/2024 2:22 PM CDT [facility] Blood (Blood, Venous) 11/22/2024 9:10 AM CDT 11/22/2024 11:33 AM CDT Helena Vidal APRN, C.N. P., M.S.N. LAB MICROBIOLOGY - BLOOD ORDERABLES Final Result [facility] [address] [place] [address] [place] [address] * HCV Ab Scrn w/Reflex to HCV PCR, Serum (11/22/2024 9:10 AM CDT) [facility] HCV Ab Screen, S Negative Negative 11/22/2024 2:22 PM CDT [facility] Comment: Consumption of high-dose biotin supplement within 12 hours of blood collection for this test can cause false-negative results. Blood (Blood, Venous) 11/22/2024 9:10 AM CDT 11/22/2024 11:33 AM CDT us Helena Vidal APRN C.N. P., M.S.N. LAB MICROBIOLOGY - BLOOD ORDERABLES Final Result [address] [place] [address] [place] [address] * (ABNORMAL) CBC with Differential, Blood (11/22/2024 9:10 AM CDT) Only the most recent of2 resultswithin the time period is included. [facility] Hemoglobin 13.6 13.2 - 16.6 g/dL 11/22/2024 [...] Jennifer.N.P., M.S.N. LAB BLOOD ADD-ON Final Result [facility] [address] [place] [address], [facility] [address] [place] [address] * Uric Acid (11/22/2024 9:10 AM CDT) Uric Acid, S 3.8 3.7 - 8.0 mg/dL 11/22/2024 10:12 AM CDT [facility] Blood (Blood, Venous) 11/22/2024 9:10 AM CDT 11/22/2024 9:33 AM CDT Helena Vidal APRN, C.N.P., M.S.N. LAB BLOOD ADD-ON Final Result [facility] [address] [place] [address], [facility] [address] [place] [address] * Phosphorus Inorganic (11/22/2024 9:10 AM CDT) Phosphorus (Inorganic), S 3.7 2.5 - 4.5 mg/dL 11/22/2024 10:12 AM CDT [facility] Blood (Blood, Venous) 11/22/2024 9:10 AM CDT 11/22/2024 9:33 AM CDT Helena Vidal APRN, Jennifer.N.P., M.S.N. LAB BLOOD ADD-ON Final Result [facility] [address] [place] [address] * (ABNORMAL) LD (Lactate Dehydrogenase) (11/22/2024 9:10 AM CDT) Only the most recent of2 resultswithin the time period is included. Lactate Dehydrogenase (LD), S 271(H) 122 - 222 U/L 11/22/2024 10:12 AM CDT [facility] Blood (Blood, Venous) 11/22/2024 9:10 AM CDT 11/22/2024 9:33 AM CDT Helena Vidal APRN, C.N.P., M.S.N. LAB BLOOD NON ADD-ON Final Result [facility] [address] [place] [address] * (ABNORMAL) Comprehensive Metabolic Panel (11/22/2024 9:10 [...] C.N.P., M.S.N. LAB BLOOD ADD-ON Final Result [facility] [address] [place] [address], [place] DTL [facility] [address] [place] [address] * NM Cardiac Blood Pool MUGA (11/18/2024 9:42 AM CDT) 11/18/2024 8:29 AM CDT Narrative [facility] - 11/18/2024 11:37 AM CDT See PDF For Result Procedure Note Elver Arshad M.D. - 11/18/2024 See PDF For Result us Helena Vidal APRN, C.N.P., M.S.N. IMG NM AK OCEDURES Final Result Performing Organization Address City/[facility]/ZIP Co de Phone Number [facility] NA * CT Neuro Spine Biopsy (11/08/2024 12:50 [...] guidance, a 14/15 gauge introducer needle and Reactfulno biopsy device were utilized to target and [...] developed and its performance characteristics determined by [facility] in a manner consistent with CLIA [...] 12:28 PM CDT DTL Tissue ID [id number] 11/15/2024 12:28 PM CDT DTL Method Locus and probes [Strategy;#Nuclei; Vendor] ----- 3q27(3'BCL6,5'BCL6 ) [BAP;100;AM] 8CEN(D8Z2),8q24.1( MYC),14q32(IGH) [DFISH;100;AM] 8q24.1(5'MYC,3'MYC ) [BAP;100;AM] 18q21(3'BCL2,5'BCL 2) [BAP;100;AM] Probe strategies include: DFISH=dual color, double fusion; BAP=break-apart probe. Scoring Method: Manual Probe vendors include: AM = [employer] ([place], [place]) 11/15/2024 12:28 PM CDT DTL Interpretation The [...] 1. WHO Classification of Tumours: Haematolymphoid Tumours; Gallagher (Shahrzad): 2023, 5th ed; ISBN 13: [id number]; The International Consensus Classification of Myeloid and Lymphoid Neoplasms; [place], [place] ([place]): 2024; ISBN-13: 978-6593991596 2. WHO Classification of Tumours: Haematolymphoid Tumours; [place] (Shahrzad): 2023, 5th ed, p.476-480; ISBN-13: [id number] 3. The International Consensus Classification of Myeloid and Lymphoid Neoplasms; [place], [place] ([place]): 2024, p.552-557; ISBN-13: [id number] FISH studies interpreted in consultation with Nini Aldridge M.D. This test was ordered in the context of a [facility] pathology consultation/case (#[id number]), and this result should be interpreted within the context of the pathology consultation/repor t. 11/15/2024 12:28 PM CDT DTL Tissue 11/08/2024 12:2 7 PM CDT 11/10/2024 1:42 PM CDT Judyamisha Frederick Joshi LAB GENETIC TE STING Final Result [facility] [address] [place] [address], [facility] DTL [address] [place] [address] * (ABNORMAL) Cytology Fine Needle Aspiration (including core biopsies) (11/08/2024 12:14 PM CDT) (A) 12:44 PM CDT DTL Disclaimer This test was developed and its performance characteristics determined by [facility] in a manner consistent with CLIA [...] right lower thoracicparaspinal mass are five pale [id number]-wox soft tissue cores and three fragments, 0.2 cm in average diameter, and ranging from 0.3-1.2cm in length. Specimens are submitted en toto in cassettes A1-A2, A1 containing three cores and A2 containing two cores and threefragments. Grossed by AJG. (A) 11/15/2024 12:44 PM CDT DTL Source [...] are present. 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 No rearrangement of MYC or BCL6 and no IGH::MYC fusion was observed.(A) 11/15/2024 12:44 PM CDT DTL Biopsy (Spine, Thoracic) 11/08/2024 12:14 PM CDT Jose MacdonaldSKwasi LAB SURG PATH ORDERABLES Final Result [facility] [address] [place] [address], [place] DTL [address] [place] [address] * PET CT Skull to Thigh FDG [...] bilateral external iliac lymph nodes, including on [id number] SUV max 6.0, a distal left external [...] although inflammatory process/periaortitis cannot be entirely excluded. us Kourtney Elizalde M.D. IMEdouard [place] PROCEDURES Final Res ult * CT Abdomen Pelvis with IV Contrast [...] Stable enhancing right renal mass. us Kourtney LONDON CT PROCEDURES Final Res ult * CT [...] 46 mm, previously 39 x 10 mm (4197). This extendsapproximately from the inferior T8 vertebral level to the superior [id number] level. New prominent 12 mm short axis [...] Indeterminate new left upper lobe pulmonary micronodule. us Kourtney Elizalde M.D. IMG CT PROCEDURES Final Res ult * AST (Aspartate Aminotransferase) (10/26/2024 8:21 AM CDT) Aspartate Aminotransferase (AST), S 21 8 - 48 U/L 10/26/2024 10:02 AM CDT DTL Blood (Blood, Venous) 10/26/2024 8:21 AM CDT 10/26/2024 9:06 AM CDT Kourtney Elizalde M.D. LAB BLOOD ADD-ON Final Resu lt [facility] [address] [place] [address], [place] [facility] [address] [place] [address] * Potassium (10/26/2024 8:21 AM CDT) Potassium, S 4.3 3.6 - 5.2 mmol/L 10/26/2024 10:02 AM CDT DT Blood (Blood, Venous) 10/26/2024 8:21 AM CDT 10/26/2024 9:06 AM CDT us Kourtney Elizalde M.D. LAB BLOOD ADD-ON Final Resu lt [facility] [address] [facility] [address] [place] [address] * Alkaline Phosphatase (10/26/2024 8:21 AM CDT) Alkaline Phosphatase, S 86 40 - 129 U/L 10/26/2024 10:02 AM CDT DTL Blood (Blood, Venous) 10/26/2024 8:21 AM CDT 10/26/2024 9:06 AM CDT us Kourtney Elizalde M.D. LAB BLOOD ADD-ON Final Resu lt Performing Organization Address City/[facility]/ZIP Co de Phone Number [facility] [address] [place] [address], [facility] [address] [place] [address] * Creatinine with Estimated GFR (10/26/2024 8:21 AM CDT) Creatinine 1.07 0.74 - 1.35 mg/dL 10/26/2024 10:02 AM CDT DTL Estimated GFR (eGFR) 69 >=60 mL/min/BSA 10/26/2024 10:02 AM CDT DTL Comment: Estimated GFR calculated using the 2020 CKD_EPI creatinine equation. Blood (Blood, Venous) 10/26/2024 8:21 AM CDT 10/26/2024 9:06 AM CDT us Kourtney Elizalde M.D. LAB BLOOD ADD-ON Final Resu lt [facility] [address] [place], [place] [id number] [place] [address] [address] [place] [address] * Calcium, Total (10/26/2024 8:21 AM CDT) Calcium, Total, S 9.4 8.8 - 10.2 mg/dL 10/26/2024 10:02 AM CDT DTL Blood (Blood, Venous) 10/26/2024 8:21 AM CDT 10/26/2024 9:06 AM CDT Kourtney Elizalde M.D. LAB BLOOD ADD-ON Final Resu lt [facility] [address] [place] [address] * Bilirubin, Total (10/26/2024 8:21 AM CDT) Bilirubin, Total, S 0.7 0.0 - 1.2 mg/dL 10/26/2024 10:02 AM CDT DT Blood (Blood, Venous) 10/26/2024 8:21 AM CDT 10/26/2024 9:06 AM CDT us Kourtney Elizalde M.D. LAB BLOOD ADD-ON Final Resu lt [facility] [address] [place] [address] * Hepatitis B Surface Antigen (10/04/2015 11:46 AM CDT) HBs Antigen, S Negative Negative [facility] 10/04/2015 11:4 6 AM CDT 10/04/2015 11:46 AM CDT us Jaime Langford M.D. LAB MICROBIOLOGY - BLOOD OR DERABLES Final Result [facility] [address] [place] [phone], [facility] from Last 3 Months or Most Recently Relevant to Health Maintenance Additional Health Concerns Infection Onset Date Last Indicated Protective Environment 11/16/2024 [facility] Direct[facility] For more information, please contact: [phone] * Full Code (Latest Code Status on File) Date Activated Date Inactivated Comments 12/19/2022 2:41 PM 12/20/2022 5:44 PM Question Answer Comments Full Code: Discussed Care Teams Turbine Room Attendant Relationship Specialty Start Date End Date Elsewhere, Pcp PCP - General Internal Medicine 10/22/24
--- OUTSIDE RECORDS SUMMARY | 2024-11-24 15:46 | XMS_ITS ---
Author Organization [facility] Address [address] [place] [id number] Care Team Providers Care Finance Business Manager Name Role Phone Elsewhere, Pcp Primary Care Provider Unavailabl e Active Problems Problem Noted Date Diagnosed Date [...] Lymph Nodes Of Mult iple Sites 09/25/2015 Current Treatment and Therapy Plans R-CHOP (riTUXimab / cycloPHOSphamide / DOXOrubicin / vinCRIStine / predniSONE)* Plan Start Date:11/14/2024 Plan Provider:Helena Vidal APRN, C.N.P., M.S.N. 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) Treatment Medications Current Day (Day 1 , Cycle 2 - Planned for 12/14/2024) Next Day (Day 2, Cycle 2 - Planned for 12/15/2024) cycloPHOSphamide (Cytoxan)cycloPHOSphamide (Cytoxan) IVPB in 250 mL (1 g vial) (Cytoxan)DOXOrubicin (Adriamycin)riTUXimab-abbs (Truxima)riTUXimab-abbs (Truxima) IVPB (RESTRICTED) (Truxima)vinCRIStine (Oncovin)vinCRIStine (Oncovin) IVPB in 50 mL solution cycloPHOSphamide 1,500 mg in NaCl 0.9% 325 mL IVPB (Cytoxan)DOXOrubicin injection 100 mg (Adriamycin)riTUXimab-abbs 700 mg in NaCl 0.9% IVPB (Truxima)vinCRIStine 2 mg in NaCl 0.9% 52 mL IVPB (Oncovin) No medications scheduled. Vascular Access Patency - Peripheral Intravenous Catheter and Rapid Infusion Catheter* Plan Start Date:11/23/2024 Plan Provider:Mike Elizabeth M.D., Ph.D. 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 Past Treatment and Therapy Plans No past plan information found. Lifetime Dose Tracking * Chemical Lifetime Dose Automatic Entry Manual Entr y doxorubicin 51.546 mg/m2 (100 mg) 51.546 mg/m2 (100 m g) 0 mg/m2 (0 mg) Radiation 5.605 mGy 5.605 mGy 0 mGy Fluoro Time 0.72 minutes 0.72 minutes 0 minutes Pediatric total anthracycline 51.546 mg/m2 (100 mg) 51.546 mg/m2 (100 mg) 0 mg/m2 (0 mg) Adult total anthracycline 51.546 mg/m2 (100 mg) 51.546 mg/m2 (100 mg) 0 mg/m2 (0 mg)
--- OUTSIDE RECORDS SUMMARY | 2024-11-24 15:46 | XMS_ITS | Clinical Summary ---
Author Organization [employer] [facility] Address [address] [place] [address] Care Team Providers Care Chief Technical Officer Name Role Phone GoldsteinSharonBronson W Unavailable [phone] Ricardo Serna MD Primary Care Provider Allergies Active Allergy Reactions Criticality Noted Date Comments Pollen Extracts *Unknown 12/02/2018 Itchy and watery eyes, runny nose Medications CPAPIndications :CRISTIAN (obstructive sleep apnea) CPAP machine for home use at pressure 4-15 cmw, nasal mask x1/3month with nasal cushion x2/mo 1 Each 11 10/21/2022 Active LORazepam (ATIVAN) 0.5 mg tabIndications: Anxiety state TAKE ONE TABLET BY MOUTH TWICE DAILY NEEDED 20 Tablet 2 04/19/2024 Active Active Problems Problem Noted Date Diagnosed Date CRISTIAN on CPAP 07/21/2023 Benign essential HTN 09/09/2022 Renal mass 10/12/2020 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 Observing Personal history of colonic polyps 09/13/2009 Overview (03/11/2022): Colonoscopy 09/2009 diverticulosis repeat in 5 years Colonoscopy 10/2015 diverticulosis repeat in 5 years Colonoscopy 02/2022 TA, diverticuli, repeat in 7-10 years Pes planus 04/12/2008 Anxiety state, unspecified LACTOSE INTOLERENCE Overview (07/22/2012): Tolerates [place] Milk 07/22/2012 Mixed hyperlipidemia Resolved Problems Problem Noted Date Diagnosed Date Resolved Date Primary osteoarthritis of left hip 09/09/2022 07/21/2023 CRISTIAN 06/28/2008 AHI/RDI:36 04/23/201903/2024 Other specified postprocedural states 12/02/2018 01/29/2022 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 07/21/2023 Erectile dysfunction 07/22/2012 022 Overview (08/04/2017): 2001 radical prostatectomy Elevated blood pressure read ing without diagnosis of hypertension 09/13/2010 09/09/2022 Generalized osteoarthrosis, unspecified site 8 09/09/2022 SNORING 08/24/2007 08/02/2020 CRISTIAN 06/28/2008 AHI-36 019 Nocturia 08/02/2020 Encounters Date Type Department Care Team Description 11/24/2024 Nurse Triage [facility] [address] [place] [address] Ricardo Serna MD Urinary Problem 10/14/2024 11:15 AM CDT Office Visit [facility] [address] [place] [address] Audi Vernon MD Derm Problem (Spots under left ear and right ankle); Musculoskeletal Problem (Right side pain x2 weeks ) 10/14/2024 Travel from Last 3 Months Immunizations Immunization Administration Dates Next Due COVID-19 vaccine (Pfizer-Bio NTech 30mcg/0.3mL) 12YO+ BIVALENT PF, MDV 05/13/2022 COVID-19 vaccine (Pfizer-Bio NTech 30mcg/0.3mL) 12YO+ URBANO-SUCROSE PF, MDV 11/30/2021 COVID-19 vaccine (Pfizer-Bio NTech 30mcg/0.3mL) PF, MDV 04/03/2021,07/26/2020,07/05/2020 Influenza, IIV3 (Age >=3 years) 04/18/2008 Pneumococcal Poly,23-Valent (Pneumovax) 04/12/20 08 Td, Preservative Free (age >= 7 Years) 8,01/08/2005 Family History Medical History Relation Name Comments Cancer-prostate Brother 1 Quentin Heart Disease Brother 1 Quentin s/p [place]; doing well Hypertension Brother 1 Quentin Cancer-prostate Brother 2 Thomas Cancer-prostate Father Byrl Other Mother Joi Dementia; at 98 yo Anesthesia Problem No Family History Blood Disease No Family History Relation Name Status Comments Brother 1 Quentin Alive Brother 2 Thomas Alive Father Byrl (Age 87) Mother Joi Alive Sister 1 Siomara Alive Sister 2 Rosita Alive Social History Tobacco Use Types Packs/Day Years Used Date Smoking Tobacco: Former Cigarettes Q uit: 05/12/1979 Smokeless Tobacco: Never Tobacco Cessation:Counseling Given: No Alcohol Use Standard Drinks/Week Comments No 0 (1 standard drink = 0.6 oz pur e alcohol) PHQ-2 Answer Date Recorded PHQ-2 TOTAL SCORE 0 07/21/2023 Social Connections Answer Date Recorded Do you often feel lonely or isolated from those around you? 0 10/14/2024 Financial Resource Strain Answer Date R ecorded Difficulty of Paying Living Expenses 3 10/14/2024 Difficulty of Paying Living Expenses Not on file 10/14/2024 Food Insecurity Answer Date Recorded Do you worry your food will run out before you are able to buy more? 1 10/14/2024 Transportation Needs Answer Date Record ed Does lack of transportation keep you from medica l appointments? 1 10/14/2024 Does lack of transportation keep you from work, meetings or getting things that you need? 1 10/14/2024 Housing Stability Answer Date Recorded What is your housing situation today? 1 10/14/2024 Utilities Answer Date Recorded Do you have trouble paying f or utilities (for example, heat, electricity, water, phone)? 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 Gender Identity Not on file Sexual Orientation Not on file Occupation Industry Job Start Date Job End Date Retired Not on file Not on file Not on file Obstetrics History Last Filed Vital Signs Vital Sign Reading Time Taken Comments Blood Pressure 166/91 10/14/2024 12:10 PM CDT Pulse 69 10/14/2024 11:26 AM CDT Temperature 36.4 C (97.6 F) 04/23/2019 9:06 AM STAFF [employer] DEFENSE OFFICER Respiratory Rate 15 05/31/2022 10:0 2 AM STAFF AIR DEFENSE OFFICER Oxygen Saturation 99% 10/14/2024 11: 26 AM CDT Inhaled Oxygen Concentration - - Weight 81.5 kg (179 lb 11.2 oz) 025 11:26 AM CDT Height 168.6 cm (5' 6.38) 07/21/2023 2:08 PM CD T Body Mass Index 28.67 07/21/2023 2:08 PM CDT Plan of Treatment Health Maintenance Due Date Last Done Comments Zoster (shingles) series for age 50+ (1 of 2) 1961 Pneumococcal series for age 50+ (2 of 2 - PCV) 04/12/2009 04/12/2008 RSV vaccine for adults or (1 - 1-dose 75+ series) 2017 COVID-19 vaccine series ( season) 2024 05/13/2022, 11/30/2021, 04/03/2021, Additional history exists BMI (ht and wt on same day) for age 18+ 07/20/2024 07/21/2023, 01/29/2022, 08/02/2020, Additional history exists Depression screening for age 12+ 07/20/2024 07/21/2023, 01/29/2022, 08/02/2020, Additional history exists Medicare Wellness for age 65+ 07/21/2024 07/21/2023, 01/29/2022, 08/02/2020, Additional history exists Influenza Vaccine (#1) 2025 04/18/2008 Tetanus booster 06/26/2027 06/26/2017, 01/08/2005 Hepatitis B series for 19+ Aged Out N o longer eligible based on patient's age to complete this topic Insurance [facility] MEDICARE ADVANTAGE MR Care Teams Chief Technical Officer Relationship Specialty Start Date End Date Ricardo Serna MD [address] [place] [address] PCP - General Family Practice 04/26/13 Bronson Goldstein [address] [place] [id number] Candy Attendant 07/22/12
[2024-11-24 15:59] VITALS: BP 164/84; PULSE 75; RESP 16; TEMP 36.4; O2SAT 97; BMI 29.3
[2024-11-24 18:22] LABS: Appearance Urine Clear (Clear)
--- NOTE | 2024-11-24 18:45 | ED.GENADULT ---
HPI - General Adult General Chief complaint: Urogenital Problems, Male Stated complaint: difficulty urinating Time Seen by Provider: 11/24/24 17:45 Source: patient Mode of arrival: ambulatory Limitations: no limitations History of Present Illness HPI narrative: 84-year-old male presenting today with urinary retention. States that he has had little to no urinary output all day. Denies any abdominal pain. He denies any nausea, vomiting, fevers or chills. Patient just started chemo yesterday for lymphoma. States that he has had a prostatectomy in the past. Related Data Home Medications ?Medication ?Instructions ?Recorded ?Confirmed allopurinol 300 mg tablet 300 mg PO DAILY 11/24/24 11/24/24 lorazepam 0.5 mg tablet 0.5 mg PO BID PRN 11/24/24 11/24/24 olanzapine 5 mg tablet 5 mg PO QPM 11/24/24 11/24/24 ondansetron HCl 8 mg tablet 8 mg PO 3XD 11/24/24 11/24/24 prednisone 50 mg tablet mg PO 11/24/24 prochlorperazine maleate 10 mg mg PO 11/24/24 tablet Allergies Allergy/AdvReac Type Severity Reaction Status Date / Time ethinyl estradiol (From Allergy Mild runny nose Verified 11/24/24 16:06 Seasonale (91)) and eye irritation levonorgestrel (From Allergy Mild runny nose Verified 11/24/24 16:06 Seasonale (91)) and eye irritation Review of Systems Status of ROS: Reports: 6 or more systems reviewed and unremarkable except as noted in History and below Exam Narrative: Exam Narrative: Well-nourished well-developed patient in no acute distress. Alert and oriented. Answers questions appropriately. Mood and affect are appropriate. Thoughts are goal oriented and rational. No tangential or magical thinking noted. Patient speaks in full sentences without needing to catch his breath. HEENT: Normocephalic atraumatic. Extraocular muscles are intact. Conjunctivae are moist without any icterus noted. Moist mucous membranes. Abdomen: Soft and nontender, mildly distended, normal bowel sounds. No guarding or rebound. Extremities: Bilateral lower extremities show trace edema. Skin: Well perfused. Const: Vital Signs, click to edit/add: Vital Signs - 24 hr 11/24/24 15:59 Temperature 97.6 F Pulse Rate [Pulse Oximeter] 75 Respiratory Rate 16 Blood Pressure [Ri ght Upper Arm] 164/84 H Pulse Oximetry 97 Oxygen Delivery Me thod Room Air Course Course ED Course: Bladder scan showed just over 600 mL of urine. Patient was able to give a small amount of urine for a UA which lips normal. Catheter was placed and 600 mL of clear, straw-colored urine drained right away, another 100 mL over the next few minutes. Vital Signs Vital signs: Initial Vital Signs Temperature 97.6 F 11/24/24 15:59 Temperature Source Temporal Artery Scan 11/24/24 15:59 Pulse Rate 75 11/24/24 15:59 Respiratory Rate 16 11/24/24 15:59 Blood Pressure 164/84 H 11/24/24 15:59 Blood Pressure Mean 110 H 11/24/24 15:59 Blood Pressure Position Sitting 11/24/24 15:59 Pulse Oximetry 97 11/24/24 15:59 Oxygen Delivery Method Room Air 11/24/24 15:59 Vital Signs Temperature 97.6 F 11/24/24 15:59 Pulse Rate 75 11/24/24 15:59 Respiratory Rate 16 11/24/24 15:59 Blood Pressure 164/84 H 11/24/24 15:59 Pulse Oximetry 97 11/24/24 15:59 Oxygen Delivery Method Room Air 11/24/24 15:59 Temperature 97.6 F 11/24/24 15:59 Pulse Rate 75 11/24/24 15:59 Respiratory Rate 16 11/24/24 15:59 Blood Pressure 164/84 H 11/24/24 15:59 Pulse Oximetry 97 11/24/24 15:59 Oxygen Delivery Method Room Air 11/24/24 15:59 Medical Decision Making [facility] Narrative Medical decision making narrative: [age] year old with urinary retention. Catheter put in place today. Will keep in for the next several days and follow up with primary care for removal either Friday afternoon or Friday morning. Lab Data Lab results reviewed: Yes I reviewed the patient's lab results Labs: Lab Results 11/24/24 Range/Units 18:10 Urine Color Yellow (Yellow) Urine Appearance Clear (Clear) Urine pH 6.0 (5.0-8.5) Ur Specific [place] 1.020 (1.000-1.030) Urine Protein Negative (Negative) Urine Glucose (UA) Negative (Negative) Urine Ketones Negative (Negative) Urine Blood Negative (Negative) Urine Nitrite Negative (Negative) Urine Bilirubin Negative (Negative) Urine Urobilinogen 0.2 (0.2-1.0) Ur Leukocyte Esterase Negative (Negative) Urine RBC 0-2 (0-2) Urine WBC 0-2 (0-5) Ur Squamous Epith Cells None (None-Few) Urine Bacteria None (None) Discharge Plan Discharge Clinical Impression: Acute urinary retention Patient Disposition: Home, Self-Care Condition: Stable Additional Instructions: Follow-up with your primary care provider either Friday or Friday to have the urinary catheter pulled out. Prescriptions: No Action ondansetron HCl 8 mg tablet 8 mg PO 3XD olanzapine 5 mg tablet 5 mg PO QPM prochlorperazine maleate 10 mg tablet PO lorazepam 0.5 mg tablet 0.5 mg PO BID PRN prednisone 50 mg tablet PO allopurinol 300 mg tablet 300 mg PO DAILY Follow Up/Referrals: Ricardo Serna MD [Primary Care Provider, Family Practice] Stand Alone Forms: [facility] Info Instructions
== END 2024-11-24 19:16 | disposition home or self-care (01) ==
PROVIDERS: Emergency Provider Family Medicine; PCP Family Medicine
DX: R33.9 Retention of urine, unspecified (principal)
CPT/HCPCS: 51702; 51798; 81001; 87086; 99283; 99284